=== PATIENT | female | born 1955 | race Caucasian/White ===

== ENCOUNTER 2020-02-19 14:19 | Emergency (ER) | payer BC, SELFPAY ==
[2020-02-19 14:36] VITALS: BP 160/95; PULSE 88; RESP 20; TEMP 36.7; O2SAT 98; BMI 24.3
[2020-02-19 15:00] LABS: Basophils # 0.1 10^3/uL (0.0-0.1); Basophils % 0.6 %; Eosinophils % 0.3 %; Hematocrit 41.1 % (37.0-47.0); Hemoglobin 12.5 g/dL (11.5-15.3); Lymphocytes # 2.4 10^3/uL (0.8-4.8); Lymphocytes % 24.3 %; Mean Corpuscular HGB Conc 30.4 g/dL (30.0-36.0); Mean Corpuscular Hemoglobin 22.4 pg (28.0-34.0); Mean Corpuscular Volume 73.5 fL (81-99); Mean Platelet Volume 9.4 fL (7.4-10.4); Monocytes # 0.6 10^3/uL (0.2-0.9); Monocytes % 6.3 %; Neutrophils # 6.69 10^3/uL (1.8-7.7); Neutrophils % 68.2 %; Nucleated Red Blood Cells % 0 %; Platelet Count 366 10^3/cmm (130-400); Red Blood Count 5.59 10^6/uL (4.1-5.3); Red Cell Distribution Width 18.9 % (12.1-15.1); White Blood Count 9.8 10^3/uL (4.0-10.0)
--- NOTE | 2020-02-19 15:06 | CTR_ITS ---
PROCEDURE INFORMATION: Exam: CT Abdomen And Pelvis With Contrast Exam date and time: 02/19/2020 3:12 PM Age: 64 years old Clinical indication: Abdominal pain; Generalized; Prior surgery; Surgery date: 6+ months; Surgery type: Multiple; Patient HX: C/O abd pain w n/v/d x 3 weeks TECHNIQUE: Imaging protocol: Computed tomography of the abdomen and pelvis with intravenous contrast. Radiation optimization: All CT scans at this facility use at least one of these dose optimization techniques: automated exposure control; mA and/or kV adjustment per patient size (includes targeted exams where dose is matched to clinical indication); or iterative reconstruction. Contrast material: OMNI 300; Contrast volume: 95 ml; Contrast route: INTRAVENOUS (IV); COMPARISON: CT abdomen pelvis w con* [id number] 04/07/2013 1:31 AM RADIATION DOSE METRICS: Total DLP (mGy-cm): 375.69 FINDINGS: Lungs: Limited assessment lung bases without visible evidence of active cardiopulmonary process. Liver: Unremarkable. No mass. Gallbladder and bile ducts: Status post cholecystectomy. Pancreas: Normal. No ductal dilation. Spleen: Normal. No splenomegaly. Adrenals: Normal. No mass. Kidneys and ureters: Normal. No hydronephrosis. Stomach and bowel: Nonobstructive bowel pattern. No evidence for diverticulosis coli or diverticulitis. No evidence of significant adynamic or reactive ileus. 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 Appendix: Status post appendectomy. Intraperitoneal space: No visible intraperitoneal ascites. Vasculature: The abdominal aorta is nonaneurysmal. Moderate arterial sclerotic disease. Lymph nodes: No visible active mesenteric or retroperitoneal lymphadenopathy. Bladder: Unremarkable as visualized. Reproductive: Status post hysterectomy. Bones/joints: Advanced degenerative disc disease L5/S1. Spondylosis deformans. Soft tissues: Unremarkable. CT/CT abdomen pelvis w con* [id number] IMPRESSION: Currently no visible evidence of acute abdominal or pelvic pathologic process. Radiation Dose CTDIVOL = (mGy): DLP = 375.69 (mGy-cm)
[2020-02-19 15:16] LABS: HCG, Serum Qual Negative (Negative)
--- NOTE | 2020-02-19 15:19 | ED_ITS ---
HPI - Nausea/Vomiting/Diarrhea General: Chief complaint: Nausea/Vomiting/Diarrhea Stated complaint: n/v/d abd pain Time Seen by Provider: 02/19/20 14:52 Source: patient Mode of arrival: ambulatory Limitations: no limitations History of Present Illness: HPI Narrative: Christy is a very nice 64-year-old female who comes in complaining of nausea, vomiting and diarrhea. She states her symptoms have been present for the past 3 weeks. She denies any blood in her stools or black tarry stools. Patient states that she had a fever when it first started approximately 2 weeks ago but has not had a problem with that since. States the stools are loose. She has decreased appetite and she states when she eats or drinks anything it usually comes up. She is unable to keep down her medications. 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 She states she has not had evaluation for this except for at the very beginning and was tested for covert and found to be negative. She denies any other complaints or concerns at this time. Associated nausea: Yes Associated symtoms: Reports nausea; Denies change in vision, chest pain, diaphoresis, dizziness, dysuria, fatigue, headache(s), malaise, palpitations or syncope Review of Systems Const: Reports: fever(s); Denies: chills, body aches, fatigue, malaise or diaphoresis Eyes: Denies: change in vision, blurry vision, photophobia, eye discomfort, eye discharge, eye redness or yellow eyes ENMT: Denies: throat pain, odynophagia, hoarseness, swelling of lips/tongue, ear or mastoid pain, ear discharge, change in hearing or nasal discharge Card: Denies: chest pain, palpitations, irregular heart rhythm, edema, lightheadedness, syncope, pre-syncope, dyspnea on exertion or orthopnea Resp: Denies: dyspnea, productive cough, non-productive cough, wheezing, hemoptysis or chest congestion GI: Reports: abdominal pain, nausea and vomiting; Denies: hematemesis, coffee ground emesis, heartburn, constipation, GI cramping, hematochezia or melena : Denies: flank pain, dysuria, urinary frequency, urinary urgency or hematuria Musc: Denies: neck pain, back pain, extremity pain, extremity swelling, joint pain, joint swelling, joint redness, joint warmth or joint stiffness Skin/Breast: Denies: rash, pruritus, erythema, skin pain or skin tenderness Neuro: Denies: headache(s), numbness in extremities, weakness in extremities, sensory changes, lack of coordination, difficulty walking, dizziness, vertigo, confusion, Slurred speech present or seizure-like activity Carlos/Lymph: Denies: easy bruising, easy bleeding, petechiae, purpura or enlarged lymph nodes All/Imm: Denies: urticaria, throat swelling, tongue swelling, facial swelling or acute wheezing PFSH ED PFSH: Surgical History (Updated 02/19/20 @ 15:32 by Farrah Fierro) H/O laparoscopy H/O partial resection of colon H/O: hysterectomy S/P appendectomy S/P cholecystectomy S/P laparotomy Social History Smoking and tobacco status: never smoked Alcohol intake: never Physical Exam Const: COMMON NORMALS: no acute distress, patient oriented x3, no limitations and alert GENERAL APPEARANCE: cooperative HENMT: COMMON NORMALS: normocephalic, atraumatic, external ears normal, EAC's normal and Normal external nose present HEAD & SCALP: normal to inspection, normocephalic and atraumatic FACE & SINUS: normal facial exam and face symmetric NOSE: Normal external nose present and Normal nares present EXTERNAL EAR: Yes external ears normal EXTERNAL AUDITORY CANAL: EAC's normal MOUTH: Normal oral and palatal mucosa present, lip normal and tongue normal Eye: COMMON NORMALS: Equal, round and reactive pupils present and conjunctivae normal GENERAL EYE: appearance normal, both eyes and all related structures ALIGNMENT: Yes alignment normal PERIORBITAL: periorbital findings normal EYELID: eyelids normal CONJUNCTIVA: Yes conjunctivae normal SCLERA: sclerae normal PUPIL: Yes Equal, round and reactive pupils present Neck/C-Spine: COMMON NORMALS: full ROM, no lymphadenopathy, supple, no meningeal signs and no JVD GENERAL: Yes normal visual inspection and Yes trachea midline Chest: COMMONS NORMALS: normal inspection of the chest and normal palpation of entire chest wall Resp: COMMON NORMALS: normal respiratory effort, No retractions, No use of accessory muscles and clear to auscultation bilaterally EFFORT & INSPECTION: Yes able to speak in complete sentences and Yes symmetric chest movement AUSCULTATION: clear to auscultation bilaterally, no crackles, no rales, no rhonchi and no wheezes Cardio: COMMON NORMALS: no JVD, regular rate, regular rhythm, S1 normal heart sound present and S2 normal heart sound present RATE: regular rate RHYTHM: regular rhythm HEART SOUNDS: S1 normal heart sound present, S2 normal heart sound present, no click, no gallops, no murmurs and no rubs GI: COMMON NORMALS: Soft to palpation and No hepatosplenomegaly present PALPATION: Yes Soft to palpation, No Tenderness to palpation present (GI), No Guarding due to palpation present (GI), No Rigid due to palpation, Yes No hepatosplenomegaly present, No Hernia present, No Palpable mass present and No Pulsatile mass present : COMMON NORMALS: Yes no CVA tenderness BLADDER/KIDNEY EXAM: Yes no CVA tenderness EXTERNAL FEMALE EXAM: No Hernia present Back/Pelvis: COMMON NORMALS: no CVA tenderness, thoracic and lumbar spine normal to inspection, no thoracic nor lumbar tenderness and thoraco-lumbar ROM normal Extremity: COMMON NORMALS: normal to inspection, full ROM, capillary refill no rmal, no joint enlargement, no clubbing, cyanosis or edema and no calf tenderness Neuro: COMMON NORMALS: patient oriented x3, CN's II-XII intact bilaterally, moves all extremities, no focal motor deficits and no sensory deficits noted SENSORIUM/ORIENTATION: Yes alert MENINGEAL SIGNS: Yes no meningeal signs SPEECH: speech normal Psych: COMMON NORMALS: mental status grossly normal, Normal thought process present, cooperative, normal affect, speech normal and activity/motor behavior normal SPEECH: Yes normal speech THOUGHT PROCESS: Normal thought process present Skin: COMMON NORMALS: no rashes or lesions noted, turgor normal, no jaundice, no petechiae and no mottling GENERAL SKIN EXAM: no rashes or lesions noted and turgor normal Course Vital Signs: Vital signs: Vital Signs Temperature 98.0 F 02/19/20 14:36 Pulse Rate 78 02/19/20 17:45 Respiratory Rate 18 02/19/20 17:45 Blood Pressure 138/74 02/19/20 17:45 Pulse Oximetry 98 02/19/20 17:45 MDM - Nausea/Vomiting/Diarrhea MDM Narrative: Medical decision making narrative: Ms. Jane is a nice 64-year-old female comes with a 3-week history of nausea vomiting and diarrhea. Patient states that she has decreased appetite and is having a hard time keeping her medications down. Her lab work is unremarkable and her CT scan is clear. Her abdominal exam shows no sign of peritonitis. I am going to send the patient home on Bentyl and Zofran. She wants to try these at home to see how they help. She declines any further evaluation and care at this time and is ready for disc harge. Lab Data: Attestation: I reviewed the patient's lab results. Labs: Lab Results 02/19/20 02/19/20 02/19/20 Range/Units 14:53 14:53 14:53 WBC 9.8 (4.0-10.0) 10^3/ uL RBC 5.59 H (4.1-5.3) 10^6/u L Hgb 12.5 (11.5-15.3) g/dL Hct 41.1 (37.0-47.0) % MCV 73.5 L (81-99) fL MCH 22.4 L (28.0-34.0) pg MCHC 30.4 (30.0-36.0) g/dL RDW 18.9 H (12.1-15.1) % Plt Count 366 (130-400) 10^3/c mm MPV 9.4 (7.4-10.4) fL Neut % (Auto) 68.2 % Lymph % (Auto) 24.3 % [place] % (Auto) 6.3 % Eos % (Auto) 0.3 % Baso % (Auto) 0.6 % Neut # (Auto) 6.69 (1.8-7.7) 10^3/u L Lymph # (Auto) 2.4 (0.8-4.8) 10^3/u L [place] # (Auto) 0.6 (0.2-0.9) 10^3/u L Eos # (Auto) 0.0 (0.0-0.8) 10^3/u L Baso # (Auto) 0.1 (0.0-0.1) 10^3/u L Nucleated RBC % (a uto) 0 % Nucleated RBCs # 0.0 /100WBC Sodium 139 (136-145) mmol/L Potassium 3.8 (3.5-5.1) mmol/L Chloride 105 (98-107) mmol/L Carbon Dioxide 20 L (22-29) mmol/L Anion Gap 17.8 (5-19) BUN 13 (8-23) mg/dL Creatinine 0.7 (0.5-0.9) mg/dL GFR Calculation 84.8 L (90-130) mL/min Glucose 112 (65-115) mg/dL Calculated Osmolal ity 289 (285-295) mOsm/k g Lactic Acid (0.5-2.2) mmol/L Calcium 10.5 (8.5-10.5) mg/dL Total Bilirubin 0.4 (0.15-1.2) mg/dL AST 13 (0-32) U/L ALT 18 (0-33) U/L Alkaline Phosphata se 111 H (35-105) IU/L Total Protein 7.7 (6.6-8.7) g/dL Albumin 4.7 (3.5-5.2) g/dL Globulin 3.0 (1.3-4.6) g/dL Lipase 13 (13-60) U/L HCG, Qual Negative (Negative) Urine Color (Yellow) Urine Appearance (CLEAR) Urine pH (5-7) Ur Specific Gravit y (1.005-1.030) Urine Protein (Negative) Urine Glucose (UA) (Normal) Urine Ketones (Negative) Urine Blood (Negative) Urine Nitrate (Negative) Urine Bilirubin (Negative) Urine Urobilinogen (Negative) mg/dL Ur Leukocyte Agnelica ase (Negative) 02/19/20 02/19/20 Range/Units 15:53 16:15 WBC (4.0-10.0) 10^3/ uL RBC (4.1-5.3) 10^6/u L Hgb (11.5-15.3) g/dL Hct (37.0-47.0) % MCV (81-99) fL MCH (28.0-34.0) pg MCHC (30.0-36.0) g/dL RDW (12.1-15.1) % Plt Count (130-400) 10^3/c mm MPV (7.4-10.4) fL Neut % (Auto) % Lymph % (Auto) % [place] % (Auto) % Eos % (Auto) % Baso % (Auto) % Neut # (Auto) (1.8-7.7) 10^3/u L Lymph # (Auto) (0.8-4.8) 10^3/u L [place] # (Auto) (0.2-0.9) 10^3/u L Eos # (Auto) (0.0-0.8) 10^3/u L Baso # (Auto) (0.0-0.1) 10^3/u L Nucleated RBC % (a uto) % Nucleated RBCs # /100WBC Sodium (136-145) mmol/L Potassium (3.5-5.1) mmol/L Chloride (98-107) mmol/L Carbon Dioxide (22-29) mmol/L Anion Gap (5-19) BUN (8-23) mg/dL Creatinine (0.5-0.9) mg/dL GFR Calculation (90-130) mL/min Glucose (65-115) mg/dL Calculated Osmolal ity (285-295) mOsm/k g Lactic Acid 1.4 (0.5-2.2) mmol/L Calcium (8.5-10.5) mg/dL Total Bilirubin (0.15-1.2) mg/dL AST (0-32) U/L ALT (0-33) U/L Alkaline Phosphata se (35-105) IU/L Total Protein (6.6-8.7) g/dL Albumin (3.5-5.2) g/dL Globulin (1.3-4.6) g/dL Lipase (13-60) U/L HCG, Qual (Negative) Urine Color Colorless (Yellow) Urine Appearance Clear (CLEAR) Urine pH 7 (5-7) Ur Specific Gravit y 1.005 (1.005-1.030) Urine Protein Neg (Negative) Urine Glucose (UA) Norm (Normal) Urine Ketones Negative (Negative) Urine Blood Neg (Negative) Urine Nitrate Negative (Negative) Urine Bilirubin Neg (Negative) Urine Urobilinogen Norm (Negative) mg/dL Ur Leukocyte Angelica ase Negative (Negative) Imaging Data^: CT Abd/Pel: Radiologist's impression: [address] [address] [address] Scan Report Signed Patient: Christy Jane Unit #: [id number] : 1955 Age/Sex: 64 / F ADM Date: 02/19/20 Loc: ER Room/Bed: Attending Dr: Ordering Provider/Ordering MD: Farrah Fierro DO Date of Service: 02/19/20 Procedure(s): CT abdomen pelvis w con* [id number] Accession Number(s): [id number] Report Number: [id number] PROCEDURE INFORMATION: Exam: CT Abdomen And Pelvis With Contrast Exam date and time: 02/19/2020 3:12 PM Age: 64 years old Clinical indication: Abdominal pain; Generalized; Prior surgery; Surgery date: 6+ months; Surgery type: Multiple; Patient HX: C/O abd pain w n/v/d x 3 weeks TECHNIQUE: Imaging protocol: Computed tomography of the abdomen and pelvis with intravenous contrast. Radiation optimization: All CT scans at this facility use at least one of these dose optimization techniques: automated exposure control; mA and/or kV adjustment per patient size (includes targeted exams where dose is matched to clinical indication); or iterative reconstruction. Contrast material: OMNI 300; Contrast volume: 95 ml; Contrast route: INTRAVENOUS (IV); COMPARISON: CT abdomen pelvis w con* [id number] 04/07/2013 1:31 AM RADIATION DOSE METRICS: Total DLP (mGy-cm): 375.69 FINDINGS: Lungs: Limited assessment lung bases without visible evidence of active cardiopulmonary process. Liver: Unremarkable. No mass. Gallbladder and bile ducts: Status post cholecystectomy. Pancreas: Normal. No ductal dilation. Spleen: Normal. No splenomegaly. Adrenals: Normal. No mass. Kidneys and ureters: Normal. No hydronephrosis. Stomach and bowel: Nonobstructive bowel pattern. No evidence for diverticulosis coli or diverticulitis. No evidence of significant adynamic or reactive ileus. 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 Appendix: Status post appendectomy. Intraperitoneal space: No visible intraperitoneal ascites. Vasculature: The abdominal aorta is nonaneurysmal. Moderate arterial sclerotic disease. Lymph nodes: No visible active mesenteric or retroperitoneal lymphadenopathy. Bladder: Unremarkable as visualized. Reproductive: Status post hysterectomy. Bones/joints: Advanced degenerative disc disease L5/S1. Spondylosis deformans. Soft tissues: Unremarkable. CT/CT abdomen pelvis w con* [id number] IMPRESSION: Currently no visible evidence of acute abdominal or pelvic pathologic process. Radiation Dose CTDIVOL = (mGy): DLP = 375.69 (mGy-cm) Dictated By: Henrique Molina Signed By: Henrique Molina Signed Date/Time: 02/19/201706 DD/ 05 Discharge Plan Discharge Patient Disposition: Home Clinical Impression: Abdominal pain of unknown cause Condition: Stable Prescriptions: New Zofran 4 mg tablet 4 mg PO Q6H PRN (Reason: nausea and vomiting) Qty: 20 RF: 0 dicyclomine 20 mg tablet 20 mg PO QID 10 Days Qty: 40 RF: 0 No Action Multiple Vitamins Tablet 1 tab PO DAILY RF: 0 trazodone 50 mg tablet 50 mg PO BEDTIME RF: 0 sumatriptan succinate 100 mg tablet 100 mg PO PRN RF: 0 hydrocodone-acetaminophen 10-325 mg tablet 1 tab PO QID PRN (Reason: Pain) RF: 0 ibuprofen 200 mg Tablet 600 mg PO PRN RF: 0 fluticasone propionate 50 mcg/actuation spray,suspension 1 - 2 spray INTRANASAL DAILY PRN (Reason: unknown) RF: 0 Detox Cleanse See Rx Instructions .ROUTE .COMPLEX RF: 0 royal jelly 1 cap PO DAILY RF: 0 Discharge Orders: Discharge Order (Routine); Ordered 02/19/20 Ordered By: Farrah Fierro Referrals: Huy Cobos MD [Primary Care Provider] - Discharge Diet: Advance as tolerated and Clear Liquid Discharge Activity: Increase activity as tolerated Patient Instructions: Abdominal Pain (ED) Activity Restrictions/Additional Instructions: Please return to the ER immediately for any of the signs or symptoms listed on your discharge instruction sheets, worsening/changing of your symptoms, you are not getting better as quickly as expected, or for ANY other cause or concerns. Follow a clear liquid diet and slowly advance it as your pain can tolerate. Return to the ER for fever, uncontrolled pain, uncontrolled vomiting, or for any other cause for concern. He is certain to follow-up with your doctor as soon as possible for recheck. Discharge Date/Time: 02/19/20 17:47 Coding Level of Care Code ED Back Shoe Worker for Chg Fwd Exam Comprehensive
[2020-02-19 15:22] LABS: Alanine Aminotransferase 18 U/L (0-33); Albumin Level 4.7 g/dL (3.5-5.2); Alkaline Phosphatase 111 IU/L (35-105); Anion Gap 17.8 (5-19); Aspartate Amino Transferase 13 U/L (0-32); Blood Urea Nitrogen 13 mg/dL (8-23); Calcium 10.5 mg/dL (8.5-10.5); Carbon Dioxide 20 mmol/L (22-29); Chloride 105 mmol/L (98-107); Glomerular Filtration Rate 84.8 mL/min (90-130); Glucose 112 mg/dL (65-115); Lipase 13 U/L (13-60); Osmolality Calculated 289 mOsm/kg (285-295); Potassium 3.8 mmol/L (3.5-5.1); Sodium 139 mmol/L (136-145); Total Bilirubin 0.4 mg/dL (0.15-1.2); Total Protein 7.7 g/dL (6.6-8.7)
[2020-02-19 16:02] VITALS: RESP 18; O2SAT 98
[2020-02-19] MEDS: HYDROmorphone 1 mg/mL INJ 1 mL 0.5 MG IVP (16:02)
[2020-02-19] MEDS: ondansetron 2 mg/ML SDV 2 mL 4 MG IVP ×2 (16:03→17:44)
[2020-02-19] MEDS: sodium chloride 0.9% 1,000 ML 999 ML IV (16:03)
[2020-02-19] MEDS: iohexol 300 mg/mL 100 mL Btl IV (16:04)
[2020-02-19 16:23] LABS: Add Urine Microscopic? NO
[2020-02-19 16:28] LABS: Lactic Sepsis W/Reflex 1.4 mmol/L (0.5-2.2)
[2020-02-19 16:32] LABS: Bilirubin Urine Neg (Negative); Blood Urine Neg (Negative); Glucose Urine UA Norm (Normal); Ketones Urine Negative (Negative); Leukocyte Esterase Urine Negative (Negative); Nitrate Urine Negative (Negative); Protein Urine Neg (Negative); Specific Gravity, Urine 1.005 (1.005-1.030); Urine Appearance Clear (CLEAR); Urine Color Colorless (Yellow); Urobilinogen Urine Norm (Negative); pH Urine 7 (5-7)
[2020-02-19 17:43] VITALS: RESP 18; O2SAT 98
[2020-02-19] MEDS: morphine 4 mg/mL SDV 1 mL IVP (17:43)
[2020-02-19 17:45] VITALS: BP 138/74; PULSE 78; RESP 18; O2SAT 98
== END 2020-02-19 17:47 | disposition home or self-care (01) ==
PROVIDERS: Emergency Provider Emergency Medicine; PCP Family Medicine
DX: R10.9 Unspecified abdominal pain (principal)
CPT/HCPCS: 12345; 36415; 74177; 80053; 81003; 83605; 83690; 84703; 85025; 96374; 96375; 99282; 99284; J1170; J2270; J2405; J7030; Q9967

== ENCOUNTER 2020-04-17 15:30 | Outpatient (CLI) | payer BC, SELFPAY ==
--- NOTE | 2020-04-17 15:33 | MR_ITS ---
WS: [id number] MRI LUMBAR SPINE NONCONTRAST HISTORY: LUMBOSACRAL RADICULOPATHY AT L5 COMPARISON: 08/15/2008 TECHNIQUE: Sagittal and axial multisequence imaging is submitted. Reversal of the normal cervical lordosis. Moderate degenerative disc disease in the cervical spine. Mild straightening of the normal lumbar lordosis. No marrow edema or fracture. Mild disc desiccation and narrowing throughout the lumbar spine, most significant at L5-S1 with a dis c space is moderate. Conus terminates normally at L1-2 disc level. L1-L2: Mild osteophytic ridging with no stenosis. L2-L3: Mild osteophytic ridging and ligamentum flavum hypertrophy. No significant stenosis. L3-L4: Mild osteophytic ridging with moderate facet and ligamentum flavum arthritis. Moderate RIGHT f oraminal narrowing. L4-L5: Diffuse annular disc bulging and osteophytic ridging. Moderate ligamentum flavum hypertrophy a nd facet joint arthritis. Disc osteophyte and facet encroachment into the RIGHT subarticular recess c ausing moderate stenosis and mild on the LEFT. Associated annular fissures in the RIGHT subarticular disc. L5-S1: Diffuse annular disc bulging and mild osteophytic ridging. Facet joint arthritis. Osteophytes and disc disease contribute to moderate bilateral foraminal stenosis. Shallow central disc protrusion has decreased in size since 2008. MR/MR lumbar spine wo con* [id number] IMPRESSION: 1. Moderate bilateral foraminal stenosis at L5-S1. No significant progression since 2008. 2. Moderate RIGHT subarticular recess stenosis and mild on the LEFT at L4-5 wi thout significant change. 3. Moderate RIGHT foraminal narrowing at at L3-4 with mild progression since t he prior study.
--- NOTE | 2020-04-17 15:33 | MR_ITS ---
WS: [id number] MRI CERVICAL SPINE HISTORY: CERVICAL RADICULOPATHY COMPARISON: None available. Straightening and reversal of the normal cervical lordosis. Reversal is centered at C4-5. Signal within the cord is normal. Craniocervical junction, C1 and C2 relationship, odontoid process and soft tissues are normal. C2-C3: Tiny central disc protrusion without stenosis. C3-C4: Moderate central disc protrusion with effacement of the CSF. Disc osteophyte complex in the RI GHT foramen causing moderate to severe RIGHT foraminal stenosis. Only mild narrowing on the LEFT. C4-C5: Diffuse annular disc bulging and osteophytic ridging. Disc osteophyte complex in the RIGHT for amen causing moderate stenosis. C5-C6: Diffuse osteophytic ridging and annular disc bulging. Complete effacement of CSF with moderate central stenosis and moderate to severe bilateral foraminal stenosis. There is contact on cervical c ord and mild deformity. C6-C7: Central disc protrusion with annular fissure and osteophytes causing contact on the LEFT later al cervical cord. C7-T1: Shallow central disc protrusion. No stenosis. Paraspinal soft tissue are normal. MR/MR cervical spin wo con* [id number] IMPRESSION: 1. Multilevel moderate spondylitic changes and reversal normal cervical lordos is. 2. Moderate to severe RIGHT foraminal stenosis at C3-4 due to disc osteophyte disease. There is also moderate central disc protrusion at C3-4. 3. Moderate central stenosis with moderate to severe bilateral foraminal steno sis at C5-6 with cord contact. 4. Moderate RIGHT foraminal stenosis due to disc osteophyte at C4-5. 5. Disc osteophyte complex at C6-7 on the LEFT with mild cord contact.
== END 2020-04-17 15:31 | disposition home or self-care (01) ==
LOC: RADSHAW 15:32
PROVIDERS: PCP Family Medicine; Visit Provider Family Medicine
DX: M54.17 Radiculopathy, lumbosacral region (principal); M54.12 Radiculopathy, cervical region; M48.07 Spinal stenosis, lumbosacral region; M48.061 Spinal stenosis, lumbar region without neurogenic claudication; M48.02 Spinal stenosis, cervical region; M50.21 Other cervical disc displacement, high cervical region; M25.78 Osteophyte, vertebrae
CPT/HCPCS: 72141; 72148

== ENCOUNTER → 2020-12-15 09:15 | Outpatient (BNVA) | payer BC, SELFPAY | PROVIDERS: PCP Family Medicine; Referring Provider Family Medicine; Visit Provider Orthopaedic Surgery | DX: M47.892 Other spondylosis, cervical region (principal); R10.9 Unspecified abdominal pain | CPT/HCPCS: 72050 ==

== ENCOUNTER → 2021-02-15 10:16 | Outpatient (BNVA) | payer BC, SELFPAY | PROVIDERS: PCP Family Medicine; Visit Provider Orthopaedic Surgery | DX: Z01.812 Encounter for preprocedural laboratory examination (principal); Z20.822 Contact with and (suspected) exposure to COVID-19 | CPT/HCPCS: 87635 ==

== ENCOUNTER 2021-02-19 05:50 | Day surgery (SDC) | payer BC, SELFPAY ==
[2021-02-14 10:43] VITALS: BMI 26.5
--- NOTE | 2021-02-14 16:03 | ANES.PREANE2 ---
Pre-Anesthetic Assessment Pre-Anesthetic Assessment: Height/Weight: Height 1.6 m Weight 68.039 kg Proposed Procedure: Operation Date: 02/21/21 09:55 Proposed Procedures p ACDF 08/03 67877, 58657 09/04 67970 70066 /6 68992, 94177, 83609, 56862 m47.22(Not Applicable) - Kevin Joseph, DO Was Beta Devonte taken within 24 hours: Yes Was Clonidine taken within 24 hours: N/A Social: Social History: Tobacco and No alcohol Exam: Pre-Anes Outpt Exam: alert, oriented x 3 and regular rate & rhythm Airway: Submandibular: WNL Cervical ROM: Other (Some limitation with pain) MP: 2 Dentition: Full Pulmonary: Pulmonary: COPD CV/HEM: CV/HEM: HTN GI: GI: GERD Musc/skel: Musc/skel: OA/DJD Comments: Chronic pain/opioid Anesthetic Plan: ASA status: 3 Anesthesia: General Risk of > 500 ml blood loss (7ml/kg in children): No PFSH Anesthesia PFSH: Surgical History H/O laparoscopy H/O partial resection of colon H/O: hysterectomy S/P appendectomy S/P cholecystectomy S/P laparotomy Social History Smoking and tobacco status: current every day smoker Alcohol intake: never Data Anesthesia Cardiac Studies: No Data to Display
[2021-02-19] VITALS (21 sets, daily range): BP systolic 147–218; BP diastolic 86–118; PULSE 73–98; RESP 13–23; TEMP 36.6–36.7; O2SAT 93–100
--- NOTE | 2021-02-19 | SCC_ITS ---
Procedure Done: 1. Anterior diskectomy C3/4 2. Anterior disckectomy C4/5 3. Anterior diskectomy C5/6 4. Insertion of cage C3/4 5. Insertion of cage C4/5 6. Insertion of cage C5/6 7. Instrumentation with anterior plate from C3-C6 8. Use of allograft 33.0 seconds of fluoroscopic guidance, for a cumulative dose of 2.54 mGy, was provided to Dr. Joseph by the radiology department. C-arm images of the cervical spine were saved for the patient's permanent record. LUCAS
--- NOTE | 2021-02-19 | XR_ITS ---
WS: [id number] INTRAOPERATIVE TECHNIQUE: 3 Spot fluoroscopic images for intraoperative purposes. FLUOROSCOPY TIME: 33.0 seconds CLINICAL INFORMATION: ACDF COMPARISON: None. FINDINGS: Intraoperative changes ACDF C2-C5 with interbody fusion grafts. Endotracheal tube. XR/XR cervical spine 3V* [id number] IMPRESSION: Images obtained for intraoperative purposes.
--- NOTE | 2021-02-19 06:23 | P.HP_ITS ---
Providers/Chief Complaint Primary Care Provider: Huy Cobos MD Chief Complaint: ACDF 08/03 [id number], [id number] 09/04 [id number] 10/05 [id number], 2 History of Present Illness Christy Jane is a 65 year old female neck pain. Onset: gradual Duration: year Characteristics: stiffness Severity: moderate Location: neck Radiating symptoms: none Aggravating factors: movement Alleviating factors: nothing Neuro deficits: Patient reports numbness, tingling, weakness, Patient denies incontinence of bowel/bladder, saddle anesthesia. Prior tx: None Review of Systems Narrative: General ROS: negative for weight changes, fever ENT ROS: negative for nasal congestion, drainage or bleeding, sore throat, dysphagia or ear pain Eyes: PERRL Hematological and Lymphatic ROS: negative for swollen glands or abnormal bleeding Endocrine ROS: negative for polyuria/polydpsia or new changes in weight Respiratory ROS: negative for cough, shortness of breath, or wheezing Cardiovascular ROS: negative for chest pain or dyspnea on exertion Gastrointestinal ROS: negative for reflux, abdominal pain, change in bowel habits, or black or bloody stools Musculoskeletal ROS: negative for back pain, neck pain, or joint pain or swelling except for current problem Neurological ROS: negative for TIA or stoke symptoms Skin: no rashes Medications/Allergies Home Medications Medication Instructions Recorded Confirmed Last Taken Type fluticasone propionate 1 - 2 spray INTRANASAL DAILY PRN 02/19/20 02/19/21 02/18/21 History hydrocodone-acetaminophen 1 tab PO QID PRN 02/19/20 02/19/21 02/19/21 05:00 History ibuprofen 600 mg PO PRN 02/19/20 02/19/21 02/16/21 History multivitamin [Multiple Vitamins] 1 tab PO DAILY 02/19/20 02/19/21 02/18/21 History sumatriptan succinate 100 mg PO PRN 02/19/20 02/19/21 02/19/21 History trazodone 50 mg PO BEDTIME 02/19/20 02/19/21 02/18/21 History dicyclomine 20 mg PO DAILY 02/14/21 02/19/21 02/18/21 History metoprolol succinate 25 mg PO DAILY 02/14/21 02/19/21 02/18/21 History pantoprazole 40 mg PO DAILY 02/14/21 02/19/21 02/18/21 History Allergies Allergy/AdvReac Type Severity Reaction Status Date / Time codeine Allergy RASH Verified 12/15/20 09:20 Penicillins Allergy RASH Verified 12/15/20 09:20 PFSH Acute PFSH: Surgical History H/O laparoscopy H/O partial resection of colon H/O: hysterectomy S/P appendectomy S/P cholecystectomy S/P laparotomy Social History Smoking and tobacco status: current every day smoker Alcohol intake: never Physical Exam Narrative: EXAM NARRATIVE: CONSTITUTIONAL: The patient is a normal appearing [] in no apparent distress. GENERAL: Patient in no acute distress. CARDIAC: Regular rate and rhythm. CHEST: Normal inspiratory effort, normal respiratory rate. ABDOMEN: Soft and nontender. SKIN: Clear, warm and intact. NEURO?PSYCH: The patient is alert and oriented to person, place and time. Sensorv /SILT Motor StrengthShoulder abduction C5 5/5Wrist extension C6 5/5Elbow extension C7 5/5Hand Railroad Crossing Protection Maintainer C8 5/5Finger abduction T15/5 Radial/ Ulnar/ Median n intact LowerSensory (SILT)Motor StrengthHin flexion L2/3Ant/inner thigh 5/5Hip adduction L2/3 5/5Knee extension L4 Lat thigh, 5/5Toe dorsiflexion L5 5/5Ankle dorsiflexion L5/ X68Vhltizn flexion S1 5/5 DTRBleeps 2+Triceps 2+Brachioradialis 2+Patellar 2+Achilles 2+ MUSCULOSKELETAL: [] UPPEREXTREMITIES: The patient had full active ROM in fingers, wrist, elbow, and shoulder. The patient demonstrated ability to fully flex/extend/abduct/adduct fingers, make ok sign, cross 2nd/3rd digits, extend 1st digit fully.. Radial pulse 2+, CR<2 seconds. LOWER EXTREMITIES: Pt has full, active ROM of toes, ankle, knee, and hip. Dorsalis pedis/posterior tibialis pulses 2+, CR<2 seconds. SPINE: Skin warm, dry, intact. A&P Assessment and plan (1) Cervical spondylosis with radiculopathy: she has significant stenosis with compression of the spinal cord and severe radiculopathy going into left arm is been going for several years. She has not done physical therapy however I am concerned about the severity of the compression of the spinal cord that this would cause irritation of the spinal cord. At this point recommend she did not do any activities that she can potentially hyperextend her neck. This point my plan is to perform a C3-4 C4-5 C5-6 ACDF to stabilize the levels compressing the spinal cord and opened up the spaces where there is radiculopathy. Discussed with her doing injections however at this point again my concern is the degree of severity of her compression of the spinal cord and the injections will not improve the space available for the spinal cord. Risk and benefit of surgery were explained which include bleeding infection scar pain damage to blood vessels nerves risk of further surgery anesthesia risk as well as swallowing issues. Status: Acute Attestations Medical Necessity Statement*: failed conservative tx Coding Level of Care Code Acute Database Software Technician for Rachana Baird Diagnoses Cervical spondylosis with radiculopathy M47.22
[2021-02-19] MEDS: sodium chloride 0.9% 1,000 ML 30 ML IV ×2 (06:33→11:12)
[2021-02-19] MEDS: clindamycin 900 MG/50 ML PREMIX 100 MG IV (07:15)
--- NOTE | 2021-02-19 08:17 | P.ANESUD_ITS ---
Pre-Anesthetic Update Pre-Anesthetic Assessment: Date of Surgery/Procedure: 02/19/21 Preop Monica gnosis: cervical stenosis Proposed Procedure: Operation Date: 02/19/21 07:00 Proposed Procedures p ACDF 3/4 38251, 04774 4/5 18556 62520 5/6 42410, 79195, 54743, 39084 m47.22(Not Applicable) - Kevin Joseph, DO Any changes to Pre-Anesthetic Assessment?: No Last Intake: Intake Last Liquid Date 02/18/21 Last Liquid Time 21:30 Last Solid Date 02/18/21 Last Solid Time 21:30 Vitals: Temperature 97.9 F 02/19/21 05:59 Temperature Source Temporal Artery S can 02/19/21 05:59 Pulse Rate 82 02/19/21 05:59 Pulse Rhythm 02/19/21 05:59 Respiratory Rate 18 02/19/21 05:59 Blood Pressure 163/108 02/19/21 05:59 Blood Pressure Ashley n 126 02/19/21 05:59 Pulse Oximetry 97 02/19/21 05:59 Oxygen Delivery Me thod 02/19/21 05:59 Exam: Pre-Anes Outpt Exam: alert, oriented x 3, clear to auscultation bilaterally and regular rate & rhythm Cardiac Studies: No Data to Display
--- NOTE | 2021-02-19 10:00 | PM.OP ---
Operative Report Date of procedure: February 19, 2021 Pre-op Diagnosis: cervical stenosis Post-op diagnosis: same Procedure Done: 1. Anterior diskectomy C3/4 2. Anterior disckectomy C4/5 3. Anterior diskectomy C5/6 4. Insertion of cage C3/4 5. Insertion of cage C4/5 6. Insertion of cage C5/6 7. Instrumentation with anterior plate from C3-C6 8. Use of allograft Surgeon: Kevin Joseph Carpentry Instructor: Ambrose Hector Anesthesia: General Estimated blood loss (mL): 10 Condition: stable Disposition: PACU Procedure: 1. Anterior diskectomy C3/4 2. Anterior disckectomy C4/5 3. Anterior diskectomy C5/6 4. Insertion of cage C3/4 5. Insertion of cage C4/5 6. Insertion of cage C5/6 7. Instrumentation with anterior plate from C3-C6 8. Use of allograft The patient was taken to the operating room, where he underwent general endotracheal anesthesia without complications. He was then positioned supine on the operating table, and all areas of impingement were well padded. The arms were carefully padded and tucked at his sides. A roll was placed between the shoulder blades.. An x-ray was done to determine the appropriate level for the skin incision. The entire neck was then sterilely prepped and draped in the usual fashion. Neuromonitoring was attached prior to prepping. A transverse skin incision was made and carried down to the platysma muscle. This was then split in line with its fibers. Blunt dissection was carried down medial to the carotid sheath and lateral to the trachea and esophagus until the anterior cervical spine was visualized. A needle was placed into a disc and an x-ray was done to determine its location. The longus colli muscles were then elevated bilaterally with the electrocautery unit. Self-retaining retractors were placed deep to the longus colli muscle. Attention was brought to the C3/4 level that was confirmed on x-ray. A caspar pin was placed into the C3 vertebrae and the C4 vertebrae. The disk space was then distracted. The microscope was then brought in. A radical anterior discectomies were performed at C3/4. This included complete removal of the anterior annulus, nucleus, and posterior annulus. The posterior longitudinal ligament was removed as were the posterior osteophytes. Foraminotomies were then accomplished bilaterally. This was done using a high speed ajith, kerrison rongeurs and curretes Once all of this was accomplished, the curved currette was used to check for any residual compression. The central canal was wide open as were the foramen. A high-speed bur was used to remove the cartilaginous endplates above and below the interspace. Bleeding cancellous bone was exposed. The disc space were measured and appropriate size cage were placed sterilely onto the field. Allograft graft was packed into the cages. The cage was then placed and there was good juxtaposition against the bleeding decorticated surfaces and good distraction of each interspace. Attention was brought to the next interspace. The Harrell pins were removed. Bone wax was used to prevent any bleeding from occurring at the pin sites. Attention was brought to the C4/5 level that was confirmed on x-ray. A caspar pin was placed into the C4 vertebrae and the C5 vertebrae. The disk space was then distracted. The microscope was then brought in. A radical anterior discectomies were performed at C4/5. This included complete removal of the anterior annulus, nucleus, and posterior annulus. The posterior longitudinal ligament was removed as were the posterior osteophytes. Foraminotomies were then accomplished bilaterally. This was done using a high speed ajith, kerrison rongeurs and curretes Once all of this was accomplished, the curved currette was used to check for any residual compression. The central canal was wide open as were the foramen. A high-speed bur was used to remove the cartilaginous endplates above and below the interspace. Bleeding cancellous bone was exposed. The disc space were measured and appropriate size cage were placed sterilely onto the field. Allograft graft was packed into the cages. The cage was then placed and there was good juxtaposition against the bleeding decorticated surfaces and good distraction of each interspace. Attention was brought to the next interspace. The Harrell pins were removed. Bone wax was used to prevent any bleeding from occurring at the pin sites Attention was brought to the C5/6 level that was confirmed on x-ray. A caspar pin was placed into the C5 vertebrae and the C6 vertebrae. The disk space was then distracted. The microscope was then brought in. A radical anterior discectomies were performed at C5/6. This included complete removal of the anterior annulus, nucleus, and posterior annulus. The posterior longitudinal ligament was removed as were the posterior osteophytes. Foraminotomies were then accomplished bilaterally. This was done using a high speed ajith, kerrison rongeurs and curretes Once all of this was accomplished, the curved currette was used to check for any residual compression. The central canal was wide open as were the foramen. A high-speed bur was used to remove the cartilaginous endplates above and below the interspace. Bleeding cancellous bone was exposed. The disc space were measured and appropriate size cage were placed sterilely onto the field. Allograft graft was packed into the cages. The cage was then placed and there was good juxtaposition against the bleeding decorticated surfaces and good distraction of each interspace. Attention was brought to the next interspace. The Harrell pins were removed. Bone wax was used to prevent any bleeding from occurring at the pin sites The appropriate size anterior cervical locking plate was chosen and bent into gentle lordosis. Two screws were then placed into each of the vertebral bodies at C3, C4, C5, C6. There was excellent purchase. A final x-ray was done confirming good position of the hardware and Cages. The locking screws were then applied, also with excellent purchase. Following a final copious irrigation, there was good hemostasis and no dural leaks. The carotid pulse was strong. The wounds were then closed in layers using 2-0 Vicryl suture for the platysma muscle, 2-0 Vicryl suture for the subcutaneous tissue, and 4-0 monocryl suture in a subcuticular skin closure. Glue was placed followed by application of a sterile dressing. The drain was hooked to bulb suction. A soft collar was applied. The patient was then carefully returned to the supine position on his hospital bed where he was reversed and extubated and taken to the recovery room having tolerated the procedure well.
--- NOTE | 2021-02-19 10:18 | SUR.PHASEI ---
PT OPENS EYES TO VOICE, ORAL AIRWAY OUT PT NODS HEAD NO TO PAIN AND NAUSEA, GOOD RESP NOTED VSS IV PATENT, HOB AT 30 DEGREES ANTERIOR NECK DRESSING D/I WITH SOFT C COLLAR IN PLACE.
[2021-02-19] MEDS: HYDROmorphone 1 mg/mL INJ 1 mL 0.5 MG IVP ×3 (10:27→10:54)
--- NOTE | 2021-02-19 10:29 | SUR.PHASEI ---
1006 DR CHAN AT BEDSIDE FOR HANDOFF, ORDERS RECIEVED TO GIVE DILAUDID FIRST FOR PAIN IN PACU PER PHASE 1 ORDERS. 42730 PT AWAKE ALERT VERBALLY C/O OF PAIN OF 8 EARLIER BP ELEVATED SEE MED GIVEN.
[2021-02-19] MEDS: hyDRALAzine 20 mg/mL INJ 1 mL 10 MG IVP (10:36)
[2021-02-19] MEDS: midazolam 1 mg/mL INJ 2 mL IVP (10:59)
--- NOTE | 2021-02-19 11:10 | SUR.PHASEI ---
PT SLEEP WITH SNORING RESP BP BETTER NOW AT 176/88, VSS GOOD RESP EFFORT C COLLAR IN PLACE WITH DRESSING D/I NO HEMATOMA NOTED PT ABLE TO MOVE ALL EXT TO COMMAND .
[2021-02-19] MEDS: HYDROcodone-acetaminophen 5-325 mg Tablet 1 TAB PO (11:57)
[2021-02-19] MEDS: ondansetron 4 MG Tablet 8 MG PO (12:59)
--- NOTE | 2021-02-19 13:02 | SUR.PHASEII ---
rx called in to [facility] pharmacy for zofran 4mg. 1 t po q6h prn #20 0RF
--- NOTE | 2021-02-19 15:27 | ANE.PACU2 ---
Inpatient post-anesthesia follow up: Airway intact: Yes Vital signs: Temperature 97.9 F Pulse Rate 91 Respiratory Rate 16 Blood Pressure 164/86 Pulse Oximetry 93 Oxygen Delivery Me thod Room Air Oxygen Flow Rate 3 Fraction of Inspir ed Oxygen Hydration adequate: Yes Nausea and vomiting: No Pain level: 3 Mental status: Baseline
== END 2021-02-19 13:10 | disposition home or self-care (01) ==
PROVIDERS: PCP Family Medicine; Visit Provider Orthopaedic Surgery
PROC: 0RB30ZZ Excision of Cervical Vertebral Disc, Open Approach (ICD-10-PCS; CPT 22551; principal; 2021-02-19 07:00)
DX: M47.22 Other spondylosis with radiculopathy, cervical region (principal); J44.9 Chronic obstructive pulmonary disease, unspecified; I10 Essential (primary) hypertension; K21.9 Gastro-esophageal reflux disease without esophagitis; M19.90 Unspecified osteoarthritis, unspecified site; G89.29 Other chronic pain; Z79.891 Long term (current) use of opiate analgesic; F17.210 Nicotine dependence, cigarettes, uncomplicated
CPT/HCPCS: 20930; 22551; 22552 ×2; 22845; 22853 ×3; 36415; 72040; 76000; 97760; C1713; C9359; J0330; J0360; J1100; J1170; J2250; J2370; J2405; J2704; J2710; J3010; J3490; J7030; L0174; Q0162

== ENCOUNTER 2021-02-19 20:43 | Emergency (ER) | payer BC, SELFPAY ==
[2021-02-19 21:02] VITALS: BP 189/112; PULSE 104; RESP 18; TEMP 36.4; O2SAT 96
--- NOTE | 2021-02-19 21:28 | ED_ITS ---
HPI - Headache General: Chief Complaint: Headache Stated Complaint: headache, n/v post neck surgery Time Seen by Provider: 02/19/21 21:15 Source: patient Mode of arrival: ambulatory Limitations: no limitations History of Present Illness: HPI Narrative: 85-year-old female has a long history of migraines. States that things like anytime she has any neck stimulation like massages it causes her to have migraines. She had a neck surgery this morning done by Dr. Joseph. States that throughout the evening she has had increasing headache. States her headaches currently 10 out of 10. States this feels like her previous migraines that she has severe photophobia and phonophobia. Denies this being the worst headache of her life. Denies any fevers. She has had some nausea no vomiting. Associated symptoms: Deny chest pain, fever(s), nausea, rash or vomiting Review of Systems Const: Denies: fever(s), chills, body aches or change in appetite Eyes: Denies: blurry vision or eye discomfort ENMT: Denies: throat pain or dental pain Card: Denies: chest pain Resp: Denies: dyspnea GI: Denies: abdominal pain, nausea, vomiting or diarrhea : Denies: dysuria Musc: Denies: neck pain or back pain Skin/Breast: Denies: rash Neuro: Reports: headache(s) Psych: Denies: depression Carlos/Lymph: Denies: easy bruising All/Imm: Denies: urticaria PFSH ED PFSH: Surgical History H/O laparoscopy H/O partial resection of colon H/O: hysterectomy S/P appendectomy S/P cholecystectomy S/P laparotomy Social History Smoking and tobacco status: current every day smoker Alcohol intake: never Physical Exam Const: COMMON NORMALS: no acute distress, patient oriented x3 and healthy appearing HENMT: COMMON NORMALS: normocephalic and atraumatic HEAD & SCALP: normocephalic and atraumatic Eye: COMMON NORMALS: Equal, round and reactive pupils present and EOMs intact bilaterally PUPIL: Yes Equal, round and reactive pupils present Neck/C-Spine: COMMON NORMALS: full ROM and supple Chest: COMMONS NORMALS: normal inspection of the chest and normal palpation of entire chest wall Resp: COMMON NORMALS: normal respiratory effort, No retractions, No use of accessory muscles and clear to auscultation bilaterally AUSCULTATION: clear to auscultation bilaterally Cardio: COMMON NORMALS: regular rate, regular rhythm and No murmurs present (Cardio) RATE: regular rate RHYTHM: regular rhythm GI: COMMON NORMALS: Normal to inspection, nondistended, normoactive bowel sounds present, Soft to palpation, non-tender and no masses PALPATION: Yes Soft to palpation Extremity: COMMON NORMALS: normal to inspection and full ROM Neuro: COMMON NORMALS: patient oriented x3, moves all extremities and no focal motor deficits Psych: COMMON NORMALS: mental status grossly normal, Normal thought process present and cooperative THOUGHT PROCESS: Normal thought process present Skin: COMMON NORMALS: no rashes or lesions noted and no wounds GENERAL SKIN EXAM: no rashes or lesions noted Course Vital Signs: Vital signs: Vital Signs Temperature 97.6 F 02/19/21 21:02 Pulse Rate 104 H 02/19/21 21:02 Respiratory Rate 21 H 02/19/21 21:46 Blood Pressure 189/112 02/19/21 21:02 Pulse Oximetry 96 02/19/21 21:02 MDM - Headache MDM Narrative: Medical decision making narrative: Patient presents here with a migraine headache. Did offer CT of the head but she refused. States this is like her previous migraines and she feels much improved. To follow-up with PCP and return if worsening. She understands agrees to plan. Discharge Plan Discharge Patient Disposition: Home Clinical Impression: Migraine Condition: Stable Prescriptions: No Action dicyclomine 20 mg tablet 20 mg PO DAILY RF: 0 pantoprazole 40 mg tablet,delayed release (DR/EC) 40 mg PO DAILY RF: 0 metoprolol succinate 25 mg tablet extended release 24 hr 25 mg PO DAILY RF: 0 hydrocodone-acetaminophen 5-325 mg tablet 1 - 2 tab PO .Q4-6H Qty: 40 RF: 0 multivitamin [Multiple Vitamins] Tablet 1 tab PO DAILY RF: 0 trazodone 50 mg tablet 50 mg PO BEDTIME RF: 0 sumatriptan succinate 100 mg tablet 100 mg PO PRN RF: 0 hydrocodone-acetaminophen 10-325 mg tablet 1 tab PO QID PRN (Reason: Pain) RF: 0 ibuprofen 200 mg Tablet 600 mg PO PRN RF: 0 fluticasone propionate 50 mcg/actuation spray,suspension 1 - 2 spray INTRANASAL DAILY PRN (Reason: unknown) RF: 0 Discharge Orders: Discharge ED (Routine); Ordered 02/19/21 Ordered By: Sharif López Referrals: Huy Cobos MD [Primary Care Provider] - 1-3 days Discharge Diet: Advance as tolerated Discharge Activity: Resume usual activity Patient Instructions: Migraine Headache (ED) Coding Level of Care Code ED [employer] Internship for Chg Fwd Exam Comprehensive
[2021-02-19] MEDS: metoclopramide 5 mg/mL SDV 2 mL 10 MG IVP (21:44)
[2021-02-19 21:46] VITALS: RESP 21
[2021-02-19] MEDS: morphine 4 mg/mL SDV 1 mL IVP (21:46)
[2021-02-19] MEDS: diphenhydrAMINE 50 mg/mL SDV 1mL IVP (21:47)
[2021-02-19 22:35] VITALS: BP 148/125; PULSE 108; RESP 18; O2SAT 96
[2021-02-19 22:45] VITALS: RESP 18
[2021-02-19] MEDS: HYDROmorphone 1 mg/mL INJ 1 mL 0.5 MG IVP (22:45)
[2021-02-19 23:05] VITALS: BP 165/112; PULSE 102; RESP 18; O2SAT 98
== END 2021-02-19 23:08 | disposition home or self-care (01) ==
PROVIDERS: Emergency Provider Emergency Medicine; PCP Family Medicine
DX: G43.909 Migraine, unspecified, not intractable, without status migrainosus (principal); F17.210 Nicotine dependence, cigarettes, uncomplicated
CPT/HCPCS: 96374; 96375; 99283; J1170; J1200; J2270; J2765

== ENCOUNTER → 2021-04-05 08:36 | Outpatient (BNVA) | payer BC, SELFPAY | PROVIDERS: PCP Family Medicine; Visit Provider Orthopaedic Surgery | DX: Z48.89 Encounter for other specified surgical aftercare (principal) | CPT/HCPCS: 72040 ==

== ENCOUNTER → 2021-05-04 08:30 | Outpatient (BNVA) | payer BC, SELFPAY | PROVIDERS: PCP Family Medicine; Visit Provider Orthopaedic Surgery | DX: Z48.89 Encounter for other specified surgical aftercare (principal); Z47.89 Encounter for other orthopedic aftercare; Z98.890 Other specified postprocedural states | CPT/HCPCS: 72040 ==

== ENCOUNTER → 2021-06-28 10:10 | Outpatient (BNVA) | payer BC, SELFPAY | PROVIDERS: PCP Family Medicine; Visit Provider Physician Assistant | DX: Z48.89 Encounter for other specified surgical aftercare (principal); Z98.1 Arthrodesis status | CPT/HCPCS: 72040 ==

== ENCOUNTER 2021-09-06 14:53 | Outpatient (CLI) | payer BC, SELFPAY ==
--- NOTE | 2021-09-06 14:59 | MM_ITS ---
WS: [id number] BILATERAL SCREENING 3D TOMOSYNTHESIS DIGITAL MAMMOGRAM WITH CAD HISTORY: SCREENING COMPARISON: 03/11/2019 and 01/20/2013 Bilateral CC and MLO views submitted. Computer aided detection analyzed. Breast composition: The breasts are heterogeneously dense, which may obscure small masses. No suspici ous masses, microcalcifications or architectural distortion. The asymmetries within each breast are s table over multiple prior years. MM/[place] [id number] IMPRESSION: BI-RADS: 2-Benign FOLLOW UP: 1 Year Follow-up
== END 2021-09-06 14:54 | disposition home or self-care (01) ==
LOC: RADSHAW 14:55
PROVIDERS: PCP Family Medicine; Visit Provider Family Medicine
DX: Z12.31 Encounter for screening mammogram for malignant neoplasm of breast (principal)
CPT/HCPCS: 77063; 77067

== ENCOUNTER → 2021-09-13 15:15 | Outpatient (BNVA) | payer BC, SELFPAY | PROVIDERS: PCP Family Medicine; Visit Provider Physician Assistant | DX: Z47.89 Encounter for other orthopedic aftercare (principal); Z98.1 Arthrodesis status | CPT/HCPCS: 72040 ==

== ENCOUNTER 2021-11-08 15:37 | Outpatient (CLI) | payer BC, SELFPAY ==
--- NOTE | 2021-11-08 | XR_ITS ---
WS: [email or web address] Exam: XR hip RT 2-3V wo/w pel* [id number] Date/Time of Exam: 11/08/2021 12:00 AM Reason For Exam: RIGHT HIP PAIN Comparison 12/04/2020. No acute fracture or dislocation. Moderate degenerative thinning of the joint compartment. Hypertroph ic spurring seen along the superior lateral margin of the acetabulum. Normal soft tissues. XR/XR hip RT 2-3V wo/w pel* [id number] IMPRESSION: 1. Moderate degenerative changes progressive since prior study. No fracture or dislocation.
== END 2021-11-08 15:38 | disposition home or self-care (01) ==
LOC: RADOUTREAD 15:39
PROVIDERS: PCP Family Medicine; Visit Provider Family Medicine
DX: M25.551 Pain in right hip (principal)
CPT/HCPCS: 73502

== ENCOUNTER 2023-02-18 11:13 | Outpatient (CLI) | payer BC, SELFPAY ==
--- NOTE | 2023-02-18 | MM_ITS ---
WS: [id number] BILATERAL 3D TOMOSYNTHESIS DIGITAL SCREENING MAMMOGRAPHY WITH CAD CLINICAL INFORMATION: ANNUAL SCREENING HISTORY: Screening mammogram. No current complaints. COMPARISON: 09/06/2021 TECHNIQUE: Bilateral CC and MLO views. FINDINGS: The breasts are composed of heterogeneous fibroglandular density tissue, which can limit the detectio n of small underlying mass lesions. No suspicious mass, asymmetry, calcifications, or architectural d istortion. No evidence of malignancy. A few tiny incidental punctate calcifications. IMPRESSION: MM/[place] [id number] BI-RADS: 2-Benign FOLLOW UP: 1 Year Follow-up Recommend return to annual screening mammography.
== END 2023-02-18 11:14 | disposition home or self-care (01) ==
LOC: RAD 11:14
PROVIDERS: PCP Family Medicine; Visit Provider Family Medicine
DX: Z12.31 Encounter for screening mammogram for malignant neoplasm of breast (principal)
CPT/HCPCS: 77063; 77067

== ENCOUNTER 2023-11-05 12:31 | Outpatient (CLI) | payer BC, SELFPAY ==
--- NOTE | 2023-11-05 12:41 | MR_ITS ---
WS: [id number] MRI LUMBAR SPINE NONCONTRAST TECHNIQUE: Sagittal T1, T2 and STIR imaging. Axial T1 and T2 imaging. CLINICAL INFORMATION: LUMBOSACRAL SPONDYLOSIS W/RADICULOPATHY COMPARISON: MRI 04/17/2020 FINDINGS: Mild lumbar curve. No acute compression. Disc bulging worse at L4-5. This is similar to previous.Shal low central disc protrusion at T11-T12 with slight effacement of the ventral thecal sac. L1-L2: Mild annular bulging. Spinal canal and foramen are patent. Mild facet arthropathy. L2-L3: Mild annular bulging. Mild facet arthropathy.Spinal canal and foramen are patent. L3-L4: Mild disc bulging with osteophytic ridging. Slight narrowing RIGHT subarticular recess. Modera te facet arthropathy. Mild central canal stenosis. Mild RIGHT greater than LEFT foraminal narrowing. Central canal stenosis at this level is slightly progressed. L4-L5: Mild disc bulging with moderate central canal stenosis. Impingement on the RIGHT greater than LEFT subarticular recess. Moderate facet arthropathy. Mild bilateral foraminal narrowing. L5-S1: Slight retrolisthesis L5 on S1. Mild disc bulging with osteophytic ridging. Impingement brendon sing LEFT greater than RIGHT S1 nerve roots. Mild facet arthropathy. Mild to moderate bilateral ernst inal narrowing unchanged. Incidental Tarlov cyst in the sacrum. Visualized pelvic bony structures: Normal. Paravertebral soft tissues: Normal. MR/MR lumbar spine wo con* [id number] IMPRESSION: 1. Mild lumbar curve. No acute compression. Disc base narrowing worse at L5-S1 . 2. Disc bulge L4-5 with impingement the RIGHT greater than LEFT traversing L5 nerve roots with moderate central canal stenosis progressed compared to previou s. 3. Mild central canal stenosis L3-4 with impingement on the traversing RIGHT L 4 nerve root in the subarticular recess also progressed compared to previous. 4. Disc bulging L5-S1 with impingement of the traversing LEFT greater than RIG HT S1 nerve roots. This is similar to previous. 5. Moderate facet arthropathy L4-5. 6. Mild to moderate stable foraminal narrowing described above.
== END 2023-11-05 12:32 | disposition home or self-care (01) ==
LOC: RAD 12:36
PROVIDERS: PCP Family Medicine; Visit Provider General Practice
DX: M47.27 Other spondylosis with radiculopathy, lumbosacral region (principal); M48.061 Spinal stenosis, lumbar region without neurogenic claudication; M51.36 Other intervertebral disc degeneration, lumbar region
CPT/HCPCS: 72148

== ENCOUNTER 2024-01-15 08:27 | Outpatient (CLI) | payer BC, SELFPAY ==
--- NOTE | 2024-01-15 08:31 | MR_ITS ---
WS: [id number] MRI BRAIN WITH AND WITHOUT CONTRAST HISTORY: TRIGEMINAL NEURALGIA COMPARISON: None available. TECHNIQUE: Multiplanar imaging performed through the brain with MultiHance 14 ml's IV. Diffusion imaging is normal. No acute infarct. Mild bilateral frontal lobe atrophy. T2 and FLAIR signal hyperintensities throughout the white matter. Slightly greater distribution on th e LEFT in the periventricular and subcortical locations. No prior infarct. Posterior fossa is negativ e. No significant hippocampal atrophy. Ventricles and extra-axial spaces are normal. Clivus and pituitary gland are normal. Visualized posterior fossa and brainstem are also normal. Postcontrast images are negative for masses or vascular malformations. Dural venous sinuses are normal. Paranasal sinuses: Well aerated with no significant disease. Mastoid air cells: Normal. Calvarium and scalp: Normal. MR/MR head wo/w con [id number] IMPRESSION: 1. No acute infarct and no hemorrhage. 2. Mild bilateral frontal lobe atrophy. 3. No hippocampal atrophy. 4. Mild to moderate scattered T2 and FLAIR signal hyperintensities in the fei ventricular white matter. This can be seen with small vessel disease, diabetes, hypertension or migraines. 5. No enhancing mass identified.
[2024-01-15] MEDS: gadobenate dimeglumine 20 mL vial 14 ML IV (08:52)
== END 2024-01-15 08:28 | disposition home or self-care (01) ==
LOC: RAD 08:28
PROVIDERS: PCP Family Medicine; Visit Provider Family Medicine
DX: G50.0 Trigeminal neuralgia (principal)
CPT/HCPCS: 70553; A9577

== ENCOUNTER 2025-03-06 05:35 | Inpatient (IN) | payer BC, MEDICARE, SELFPAY ==
[2025-03-06] VITALS (12 sets, daily range): BP systolic 126–154; BP diastolic 73–93; PULSE 69–105; RESP 16–26; TEMP 36.4–36.9; O2SAT 91–99; BMI 27.4
--- OUTSIDE RECORDS SUMMARY | 2025-03-06 05:45 | XMS_ITS | Encounter Summary ---
Author Organization [facility] Address [address] [place] [address] Care Team Providers Care Wood Car Builder Name Role Phone Mauro Soliman MD Primary Care Provider +1- [phone] Encounter Details Date Type Department Care Team (Latest Contact Info) Description 03/15/2005 Outpatient Historical [facility] Family Medicine [place] [address] [facility] [address] [place] [phone] Mauro Soliman MD [address] 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
--- OUTSIDE RECORDS SUMMARY | 2025-03-06 05:45 | XMS_ITS | Encounter Summary ---
Author Organization [facility] Address [address] [place] [address] Care Team Providers Care Intensive Care Medicine Specialist Name Role Phone Mauro Soliman MD Primary Care Provider +1- [phone] Encounter Details Date Type Department Care Team (Latest Contact Info) Description 11/05/1999 Outpatient Historical [facility] Family Medicine- [place] [address] [place] [address] Monik Barraza NO ADDRESS ON FILE Disorders of bursae and tendons in shoulder region, unspecified (Primary Dx) Social History Tobacco Use Types Packs/Day Years Used Date Smoking Tobacco: Never Assessed Comments Unknown Sex and Gender Information Value Date Recorded Sex Assigned at Not on file 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
--- OUTSIDE RECORDS SUMMARY | 2025-03-06 05:45 | XMS_ITS | Encounter Summary ---
Author Organization [facility] Address [address] [place] [address] Care Team Providers Care Semiconductor Wafers Saw Operator Name Role Phone Mauro Soliman MD Primary Care Provider +1- [phone] Encounter Details Date Type Department Care Team (Latest Contact Info) Description 07/09/1999 Outpatient Historical [facility] Family Medicine [place] 104 [facility] [address] [place] [address] Vick Corrales DO NO ADDRESS ON FILE Urinary tract infection, site not specified (Primary Dx); Backache, unspecified Social History Tobacco Use Types Packs/Day Years Used Date Smoking Tobacco: Never Assessed Comments Unknown Sex and Gender Information Value Date Recorded Sex Assigned at Not on file 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
--- OUTSIDE RECORDS SUMMARY | 2025-03-06 05:45 | XMS_ITS | Encounter Summary ---
Author Organization [facility] Address [address] [place] [address] Care Team Providers Care Metal Burrer Name Role Phone Mauro Soliman MD Primary Care Provider +1- [phone] Encounter Details Date Type Department Care Team (Latest Contact Info) Description 03/27/1999 Outpatient Historical [facility] Family Medicine [place] 104 [facility] [address] [place] [address] Vick Corrales DO NO ADDRESS ON FILE Acute bronchitis (Primary Dx) Social History Tobacco Use Types Packs/Day Years Used Date Smoking Tobacco: Never Assessed Comments Unknown Sex and Gender Information Value Date Recorded Sex Assigned at Not on file 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
--- OUTSIDE RECORDS SUMMARY | 2025-03-06 05:45 | XMS_ITS | Encounter Summary ---
Author Organization [employer] Address [address] [place] [address] Care Team Providers Care Hospital Pharmacy Technician Name Role Phone Mauro Soliman MD Primary Care Provider +1- [phone] Encounter Details Date Type Department Care Team (Late st Contact Info) Description 02/28/2005 Inpatient Historical [facility] [place] MD [address] [address] ABDOMINAL PAIN GENERALIZED (Primary Dx) Social History Tobacco Use Types Packs/Day Years Used Date Smoking Tobacco: Never Assessed Comments Unknown Sex and Gender Information Value Date Recorded Sex Assigned at Not on file 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 Gender Identity Not on file Sexual Orientation Not on file documented as of this encounter Plan of Treatment Not on file documented as of this encounter Procedures Procedure Name Priority Date/Time Associated Diagnosis Comments CBC WITH DIFFERENTIAL Routine 02/28/2005 5:15 AM CDT COMPREHENSIVE METABOLIC PANEL Routine 02/28/2005 5:15 AM CDT documented in this encounter Results * (ABNORMAL) COMPREHENSIVE METABOLIC PANEL (02/28/2005 5:15 AM CDT) GLUCOSE 224(H) 70 - 110 mg/dL INTERFACE SYSTEM BUN 25(H) 7 - 17 mg/dL INTERFACE SYSTEM CREATININE 0.8 0.7 - 1.2 mg/dL INTERFACE SYSTEM SODIUM 142 136 - 145 mEq/L INTERFACE SYSTEM POTASSIUM 3.5 3.5 - 5.0 mEq/L INTERFACE SYSTEM CO2 22 22 - 32 mmol/l INTERFACE SYSTEM CHLORIDE 106 95 - 110 mEq/L INTERFACE SYSTEM CALCIUM 9.2 8.4 - 10.5 mg/dL INTERFACE SYSTEM ALKALINE PHOSPHATASE 92 38 - 126 IU/L INTERFACE SYSTEM TOTAL PROTEIN 7.5 6.3 - 8.2 g/dL INTERFACE SYSTEM ALBUMIN 4.0 3.5 - 5.0 g/dL INTERFACE SYSTEM AST 37(H) 14 - 36 IU/L INTERFACE SYSTEM ALT 40 9 - 52 IU/L INTERFACE SYSTEM BILIRUBIN TOTAL 0.3 0.2 - 1.4 mg/dL INTERFACE SYSTEM GLOBULIN (CALC) 3.5 2.4 - 3.9 g/dL INTERFACE SYSTEM ANION GAP 18 9 - 20 mEq/L INTERFACE SYSTEM ALBUMIN/GLOBULIN RATIO 1.1 1.0 - 2.3 INTERFACE SYSTEM OSMOLALITY, CALCULATED 302(H) 275 - 295 mOsm/Kg INTERFACE SYSTEM 02/28/2005 5:15 AM CDT [facility] [place] MD CHEMISTRY ORDERABLES Final R esult INTERFACE SYSTEM Refer to clinic/hospital department * (ABNORMAL) CBC WITH DIFFERENTIAL (02/28/2005 5:15 AM CDT) WBC 15.1(H) 4.5 - 11.0 K/ul INTERFACE SYSTEM RBC 5.24 4.20 - 5.40 Mil/ul INTERFACE SYSTEM HEMOGLOBIN 13.4 12.0 - 16.0 g/dL INTERFACE SYSTEM HEMATOCRIT 42.7 36.0 - 46.0 % INTERFACE SYSTEM MCV 81.5(L) 84.0 - 103.0 Fl INTERFACE SYSTEM MCH 25.6(L) 27.0 - 34.0 pg INTERFACE SYSTEM MCHC 31.4 30.0 - 35.0 g/dL INTERFACE SYSTEM RDW 14.7(H) 11.0 - 14.5 % INTERFACE SYSTEM PLATELETS 291 140 - 440 K/ul INTERFACE SYSTEM MPV 9.9 8.9 - 12.8 Fl INTERFACE SYSTEM NEUTROPHILS 82.7(H) 42.2 - 75.2 % INTERFACE SYSTEM LYMPHOCYTES 10.0(L) 24.0 - 44.0 % INTERFACE SYSTEM MONOCYTES 5.9 2.0 - 10.0 % INTERFACE SYSTEM EOSINOPHILS 0.9 0.0 - 7.0 % INTERFACE SYSTEM BASOPHILS 0.3 0.0 - 1.0 % INTERFACE SYSTEM NEUTROPHIL ABSOLUTE 12.5(H) 2.0 - 8.0 K/uL INTERFACE SYSTEM LYMPHOCYTE ABSOLUTE 1.5 1.2 - 4.0 K/ul INTERFACE SYSTEM MONOCYTE ABSOLUTE 0.9(H) 0.1 - 0.6 K/ul INTERFACE SYSTEM EOSINOPHIL ABSOLUTE 0.1 0.0 - 0.7 K/ul INTERFACE SYSTEM BASOPHILS ABSOLUTE 0.0 0.0 - 0.2 K/ul INTERFACE SYSTEM PERIPHERAL BLOOD SMEAR REVIEW Automated Diff INTERFACE SYSTEM 02/28/2005 5:15 AM CDT [facility] Val[place] MD HEMATOLOGY ORDERABLES Final Result INTERFACE SYSTEM Refer to clinic/hospital department documented in this encounter Visit Diagnoses Diagnosis Abdominal pain, generalized- Primary documented in this encounter Care Teams Hospital Pharmacy Technician Relationship Specialty Start Date End Date Mauro Soliman MD PCP - General 02/22/03 documented as of this encounter
--- OUTSIDE RECORDS SUMMARY | 2025-03-06 05:45 | XMS_ITS | Encounter Summary ---
Author Organization [facility] Address [address] [place] [address] Care Team Providers Care Production Control Expert Name Role Phone Mauro Soliman MD Primary Care Provider +1- [phone] Encounter Details Date Type Department Care Team (Latest Contact Info) Description 07/02/1999 Outpatient Historical [facility] Family Medicine [place] 104 [facility] 60 [place] [address] Vick Corrales, NO ADDRESS ON FILE Pyelonephritis, unspecified (Primary Dx) Social History Tobacco Use Types Packs/Day Years Used Date Smoking Tobacco: Never Assessed Comments Unknown Sex and Gender Information Value Date Recorded Sex Assigned at Not on file 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
--- OUTSIDE RECORDS SUMMARY | 2025-03-06 05:45 | XMS_ITS | Encounter Summary ---
Author Organization [facility] Address [address] [place] [address] Care Team Providers Care Director Of Staff Development Name Role Phone Mauro Soliman MD Primary Care Provider +1- [phone] Encounter Details Date Type Department Care Team (Latest Contact Info) Description 01/09/[address] 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
--- OUTSIDE RECORDS SUMMARY | 2025-03-06 05:45 | XMS_ITS | Encounter Summary ---
Author Organization [facility] Address [address] [place] [address] Care Team Providers Care Burn Out Tender Lace Name Role Phone Mauro Soliman MD Primary Care Provider +1- [phone] Encounter Details Date Type Department Care Team (Latest Contact Info) Description 10/18/1998 Outpatient Historical 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
--- OUTSIDE RECORDS SUMMARY | 2025-03-06 05:45 | XMS_ITS | Encounter Summary ---
Author Organization [email or web address] [facility] Address [address] [place] [address] Care Team Providers Care Underwriting Support Manager Name Role Phone Mauro Soliman MD Primary Care Provider +1- [phone] Encounter Details Date Type Department Care Team (Latest Contact Info) Description 02/28/2005 Outpatient Historical [facility] [address] [place] [address] AMBULANCE, [facility] ABDOMINAL PAIN UNSPEC SITE (Primary Dx) Social History Tobacco Use Types Packs/Day Years Used Date Smoking Tobacco: Never Assessed Comments Unknown Sex and Gender Information Value Date Recorded Sex Assigned at Not on file Legal Sex Female 3:47 AM MANAGER RFID Gender Identity Not on file Sexual Orientation Not on file documented as of this encounter Plan of Treatment Not on file documented as of this encounter Visit Diagnoses Diagnosis Abdominal pain, unspecified site- Primary documented in this encounter Care Teams Underwriting Support Manager Relationship Specialty Start Date End Date Mauro Soliman MD PCP - General 02/22/03 documented as of this encounter
--- OUTSIDE RECORDS SUMMARY | 2025-03-06 05:45 | XMS_ITS | Encounter Summary ---
Author Organization [facility] Address [address] [place] [address] Care Team Providers Care Financial Reporting Accountant Name Role Phone Mauro Soliman MD Primary Care Provider +1- [phone] Encounter Details Date Type Department Care Team (Latest Contact Info) Description 02/13/2000 Outpatient Historical [facility] Family Medicine [place] 104 [facility] [address] [place] [address] Vick Corrales, NO ADDRESS ON FILE Acute sinusitis, unspecified (Primary Dx) Social History Tobacco Use Types Packs/Day Years Used Date Smoking Tobacco: Never Assessed Comments Unknown Sex and Gender Information Value Date Recorded Sex Assigned at Not on file 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
--- OUTSIDE RECORDS SUMMARY | 2025-03-06 05:46 | XMS_ITS | Clinical Summary ---
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 Gender Identity Not on file Sexual Orientation Not on file Plan of Treatment Health Maintenance Due Date Last Done Comments DTAP/TDAP/TD VACCINES (1 - Tdap) 1976 BREAST CANCER SCREENING 1997 COLORECTAL SCREENING 2002 Colorectal Cancer Screening 2002 FIT-DNA Q 3 years 2002 FIT/FOBT Q 1 year 2002 Flex Sig/CT Colonography Q 5 years 2002 PNEUMOCOCCAL VACCINE 50+ YEARS (1 of 1 - PCV) 03/03/20 07 ZOSTER VACCINE (1 of 2) 2007 OSTEOPOROSIS SCREENING 2022 INFLUENZA VACCINE (#1) 2024 RSV VACCINE (60+ or ) (1 - 1-dose 75+ series) 2032 Care Teams Chaperon Relationship Specialty Start Date End Date Mauro Soliman MD PCP - General 02/22/03
--- OUTSIDE RECORDS SUMMARY | 2025-03-06 05:46 | XMS_ITS | Encounter Summary ---
Author Organization [facility] Address [address] [place] [address] Care Team Providers Care Cell Plasterer Name Role Phone Mauro Soliman MD Primary Care Provider +1- [phone] Encounter Details Date Type Department Care Team (Late st Contact Info) Description 06/04/2004 Outpatient Historical [facility] Occupational Medicine-[facility] [place] [address] [place] [address] Henrique Gandhi MD 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
--- OUTSIDE RECORDS SUMMARY | 2025-03-06 05:46 | XMS_ITS | Encounter Summary ---
Author Organization [facility] Address [address] [place] [address] Care Team Providers Care Innovation Analyst Name Role Phone Mauro Soliman MD Primary Care Provider +1- [phone] Encounter Details Date Type Department Care Team (Latest Contact Info) Description 11/08/2003 Outpatient Historical [facility] Medicine [place] 104 [facility] [address] [place] [address] Jennifer De Luna, ADOPTION SPECIALIST [address] [place] [address] ACUTE URI NOS (Primary Dx); ACUTE SINUSITIS NOS Social History Tobacco Use Types Packs/Day Years Used Date Smoking Tobacco: Never Assessed Comments Unknown Sex and Gender Information Value Date Recorded Sex Assigned at Not on file 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
--- OUTSIDE RECORDS SUMMARY | 2025-03-06 05:46 | XMS_ITS | Encounter Summary ---
Author Organization [facility] Address [address] [place] [address] Care Team Providers Care Evp Chief Exploration Officer Name Role Phone Mauro Soliman MD Primary Care Provider +1- [phone] Encounter Details Date Type Department Care Team (Latest Contact Info) Description 10/08/2000 Outpatient Historical [facility] Family Medicine [place] 104 [facility] 60 [place] [address] Vikc Corrales, DO NO ADDRESS ON FILE Corns and callosities (Primary Dx) Social History Tobacco Use Types Packs/Day Years Used Date Smoking Tobacco: Never Assessed Comments Unknown Sex and Gender Information Value Date Recorded Sex Assigned at Not on file 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
--- OUTSIDE RECORDS SUMMARY | 2025-03-06 05:46 | XMS_ITS | Encounter Summary ---
Author Organization [facility] Address [address] [place] [address] Care Team Providers Care Adobe Developer Name Role Phone Mauro Soliman MD Primary Care Provider +1- [phone] Encounter Details Date Type Department Care Team (Latest Contact Info) Description 03/14/2003 Outpatient Historical [facility] [address] [place] [address] [place] MD [address] [place] [address] ABDOMINAL PAIN RUQ (Primary Dx) Social History Tobacco Use Types Packs/Day Years Used Date Smoking Tobacco: Never Assessed Comments Unknown Sex and Gender Information Value Date Recorded Sex Assigned at Not on file Legal Sex Female 3:47 AM DISABILITY ADVOCATE Gender Identity Not on file Sexual Orientation Not on file documented as of this encounter Plan of Treatment Not on file documented as of this encounter Visit Diagnoses Diagnosis Abdominal pain, right upper quadrant- Primary documented in this encounter Care Teams Adobe Developer Relationship Specialty Start Date End Date Mauro Soliman MD PCP - General 02/22/03 documented as of this encounter
--- OUTSIDE RECORDS SUMMARY | 2025-03-06 05:46 | XMS_ITS | Encounter Summary ---
Author Organization [facility] Address [address] [place] [address] Care Team Providers Care Skiver Uppers Or Linings Name Role Phone Mauro Soliman MD Primary Care Provider +1- [phone] Encounter Details Date Type Department Care Team (Late st Contact Info) Description 10/18/2004 Outpatient Historical [facility] Occupational Medicine-[facility] [place] [address] [place] [address] Henrique Gandhi MD 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
--- OUTSIDE RECORDS SUMMARY | 2025-03-06 05:46 | XMS_ITS | Encounter Summary ---
Author Organization [facility] Address [address] [place] [address] Care Team Providers Care Implementation Architect Name Role Phone Mauro Soliman MD Primary Care Provider +1- [phone] Encounter Details Date Type Department Care Team (Late st Contact Info) Description 09/13/2004 Outpatient Historical [facility] Imaging Services-[facility] [place] [address] [place] [address] Henrique Gandhi MD 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
--- OUTSIDE RECORDS SUMMARY | 2025-03-06 05:46 | XMS_ITS | Encounter Summary ---
Author Organization [employer] [facility] Address [address] [place] [address] Care Team Providers Care State Tested Nursing Assistant Name Role Phone Mauro Soliman MD Primary Care Provider [phone]- [phone] Encounter Details Date Type Department Care Team (Latest Contact Info) Description 02/22/2003 Outpatient Historical [facility] Cliff Beach MD [facility] [address] POSTSURG AFTERCARE OTHER SPECIFIED (Primary Dx) Social History Tobacco Use Types Packs/Day Years Used Date Smoking Tobacco: Never Assessed Comments Unknown Sex and Gender Information Value Date Recorded Sex Assigned at Not on file 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
--- OUTSIDE RECORDS SUMMARY | 2025-03-06 05:46 | XMS_ITS | Encounter Summary ---
Author Organization [facility] Address [address] [place] [address] Care Team Providers Care Specialist Managers Name Role Phone Mauro Soliman MD Primary Care Provider [phone]- [phone] Encounter Details Date Type Department Care Team (Late st Contact Info) Description 07/16/2002 Outpatient Historical [facility] [place] [address] [facility] [address] [place] [id number] Mauro Soliman MD [address] [facility] [address] [place] [phone] Social History Tobacco Use Types Packs/Day Years Used Date Smoking Tobacco: Never Assessed Comments Unknown Sex and Gender Information Value Date Recorded Sex Assigned at Not on file 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
--- OUTSIDE RECORDS SUMMARY | 2025-03-06 05:46 | XMS_ITS | Encounter Summary ---
Author Organization [facility] Address [address] 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
--- OUTSIDE RECORDS SUMMARY | 2025-03-06 05:46 | XMS_ITS | Encounter Summary ---
Author Organization [facility] Address [address] [place] [address] Care Team Providers Care Livestock Nutrition Territory Manager Name Role Phone Mauro Soliman MD Primary Care Provider [phone]- [phone] Encounter Details Date Type Department Care Team (Latest Contact Info) Description 02/22/2003 Outpatient Historical [facility] Imaging Services-[place] [address] [place] [address] Cliff Beach MD [address] [place] [id number] ABDOMINAL PAIN UNSPEC SITE (Primary Dx) Social History Tobacco Use Types Packs/Day Years Used Date Smoking Tobacco: Never Assessed Comments Unknown Sex and Gender Information Value Date Recorded Sex Assigned at Not on file 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
--- OUTSIDE RECORDS SUMMARY | 2025-03-06 05:46 | XMS_ITS | Encounter Summary ---
Author Organization [facility] Address [address] [place] [address] Care Team Providers Care Guest Relations Manager Name Role Phone Mauro Soliman MD Primary Care Provider [phone]- [phone] Encounter Details Date Type Department Care Team (Late st Contact Info) Description 10/31/2004 Outpatient Historical [facility] Occupational [facility] [address] [place] [address] Henrique Gandhi MD 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
--- OUTSIDE RECORDS SUMMARY | 2025-03-06 05:46 | XMS_ITS | Data Portability ---
Author Organization [facility] Fernando Shoemaker [facility] Chichi Matute, [facility] Address [address] [facility] [address] [place] [address] Assessment Encounter Date Assessment Date Assessment LastModified by Organization Details LastModified Time 04/07/2024 04/07/2024 Document scribed by Carlos Byrd Lapel Baster. I was present during interview and exam. I have reviewed and agree with above documentation . Dr. Juan La. [email or web address] Not available 04/07/2024 12:08:09 Plan of Treatment Reminders Order Date Submit Date Provider Last Modified By Organization Details Last Modified Time Details Appointments None recorded. Lab calprotecti n, QN, stool 2024 025 [email or web address] [employer] [facility] [facility], [address] [place] [address] 248, [address], [place], [address], 17:07:30 celiac disease comprehensi ve panel, serum 2024 025 JOSE [employer] [facility], [address] [facility] [address], [address], [place], [address], 16:23:26 CBC w/ manual diff [email or web address] [place] [address] [facility], [address] [facility], [address], [place], [address], 11:50:03 CMP, serum or plasma 2024 025 [facility], [address], [address], [place], [address], 5 15:57:00 TSH, serum or plasma [email or web address] [place], [place] [address], [address], [address], [place], [address], 5 09:48:21 T4, free, serum 2024 025 [facility], [address] [place] [address], [address], [place], [address], 5 16:23:29 giardia + cryptospori dium Ag, stool 2024 025 [facility], [address], [address], [place], [address], 17:07:30 ige, total, serum 2024 025 [facility], [address] [place] [address] 248, [address], [place], [address], 5 16:23:28 iron + TIBC + ferritin, serum 2023 024 [facility] [employer] [facility], [address] [place] [address], [address], [place], [address], 5 17:07:29 CBC 2023 024 [facility], [address], [address], [place], [address], 14:57:25 Referral gastroenter ologist referral 2024 025 astrange 2 [facility] [address] [place], [address], 16:28:55 Procedures None recorded. Surgeries None recorded. Imaging None recorded. Medication Orders prednisone 20 mg tablet 2024 025 [facility], [place], [address], 05:02:00 cefadroxil 500 mg capsule 2024 025 [facility], [place], [address], 05:01:58 Patient TargetsNo targets recorded. Patient InstructionsNo instructions recorded. 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 Chronic diarrhea of unknown origin Referring Physician: Huy Cobos, Family Medicine, Encounter Date: 07/06/2024 Results Created Date Observation Date Name Description Value Unit Range Abnormal Flag Note LastModifiedBy Organization Detail LastModifiedTime 03/17/2003/17/2024 CBC WBC 6.2 x10 4.0-10 .5 Not Available [facility] [address] [facility] 1, [place], [address], 03/17/2024 09:12:40 03/17/2003/17/2024 CBC RBC 4.94 x10 3.50-5 .50 Not Available [facility] [address] [facility], [place], [address], 03/17/2024 09:12:40 03/17/2003/17/2024 CBC HGB 10.6 g/dL 12.0-1 6.0 low Not Available [facility] [address] [facility] 1, [place], [address], 03/17/2024 09:12:40 03/17/2003/17/2024 CBC HCT 35.5 % 37.0-4 7.0 low Not Available [facility] [address] [facility] 1, [place], [address], 03/17/2024 09:12:40 03/17/2003/17/2024 CBC MCV 71.9 fL 80.0-9 9.9 low Not Available [facility] [address] [facility] 1, [place], [address], 03/17/2024 09:12:40 03/17/2003/17/2024 CBC MCH 21.5 pg 27.0-3 2.0 low Not Available [facility] [address] [facility] 1, [place], [address], 03/17/2024 09:12:40 03/17/2003/17/2024 CBC MCHC 29.9 g/dL 32.0-3 6.0 low Not Available [facility] [address] [facility] 1, [place], [address], 03/17/2024 09:12:40 03/17/2003/17/2024 CBC RDW 18.6 % 11.5-1 4.5 high Not Available [facility] [address] [facility] 1, [place], [address], 03/17/2024 09:12:40 03/17/2003/17/2024 CBC plt 299.3 x10 140.0- 451.0 Not Available [facility] [address] [facility] 1, [place], [address], 03/17/2024 09:12:40 03/17/2003/17/2024 CBC lymphocytes % 37.0 % 20.0-5 0.0 Not Available [facility] [address] [facility] 1, [place], [address], 03/17/2024 09:12:40 03/17/2003/17/2024 CBC granulcytes % 48.8 % 30.0-7 0.0 Not Available [facility] [address] [facility] 1, [place], [address], 03/17/2024 09:12:40 03/17/2003/17/2024 CBC monocytes % 9.9 % 2.0-16 .0 Not Available [facility] [address] [facility] 1, [place], [address], 03/17/2024 09:12:40 03/17/2003/17/2024 CBC granulcytes# 3.0 x10 Not Asuncion ilable [facility] [address] [facility] 1, [place], [address], 03/17/2024 09:12:40 03/17/2003/17/2024 CBC lymphocytes # 2.3 x10 Not Available [facility] [address] [facility] 1, [place], [address], 03/17/2024 09:12:40 03/17/2003/17/2024 CBC monocytes # 0.6 x10 Not Avai lable [facility] [address] [facility] 1, [place], [address], 03/17/2024 09:12:40 03/17/2003/17/2024 CMP (FEMA LE) glucose 110.0 mg/dL 60.0-9 9.0 high Not Available [facility] [address] [facility] 1, [place], [address], 03/17/2024 09:29:01 03/17/2003/17/2024 CMP (FEMA LE) BUN (blood urea nitrogen) 23.0 mg/dL 10.0-2 6.0 Not Available [facility] [address] [facility] 1, [place], [address], 03/17/2024 09:29:01 03/17/2003/17/2024 CMP (FEMA LE) creatinine (serum) 0.7 mg/dL 0.4-1. 5 Not Available [facility] [address] [facility], [place], [address], 03/17/2024 09:29:01 03/17/20 24 03/17/2024 CMP (FEMA LE) BUN/creatini ne ratio 32.39 ratio Not Available [facility] [address] [facility], [place], [address], 03/17/2024 09:29:01 03/17/2003/17/2024 CMP (FEMA LE) eGFR calculated 87.3 Not Available [facility] [address] [facility] 1, [place], [address], 03/17/2024 09:29:01 03/17/20 24 03/17/2024 CMP (FEMA LE) total protein 7.6 g/dL 6.0-8. 5 Not Available [facility] [address] [facility] 1, [place], [address], 03/17/2024 09:29:01 03/17/20 24 03/17/2024 CMP (FEMA LE) total bilirubin 0.6 mg/dL 0.2-1. 3 Not Available [facility] [address] [facility] 1, [place], [address], 03/17/2024 09:29:01 03/17/20 24 03/17/2024 CMP (FEMA LE) albumin 4.5 g/dL 3.5-5. 5 Not Available [facility] [address] [facility], [place], [address], 03/17/2024 09:29:01 03/17/20 24 03/17/2024 CMP (FEMA LE) globulin 3.1 calc Not Available [facility] [address] [facility] 1, [place], [address], 03/17/2024 09:29:01 03/17/2003/17/2024 CMP (FEMA LE) AST (SGOT) 31.0 U/L 0.0-46 .0 Not Available [facility] [address] [facility], [place], [address], 03/17/2024 09:29:01 03/17/2003/17/2024 CMP (FEMA LE) altv (SGPT) 18.0 U/L 13.0-6 9.0 normal Not Available [facility] [address] [facility], [place], [address], 03/17/2024 09:29:01 03/17/2003/17/2024 CMP (FEMA LE) A/G ratio 1.5 ratio Not Available [facility] [address] [facility], [place], [address], 03/17/2024 09:29:01 03/17/2003/17/2024 CMP (FEMA LE) ALP phos 85.0 U/L 30.0-1 40.0 normal Not Available [facility] [address] [facility], [place], [address], 03/17/2024 09:29:01 03/17/2003/17/2024 CMP (FEMA LE) calcium 9.7 mg/dL 8.4-10 .5 Not Available [facility] [address] [facility] 1, [place], [address], 03/17/2024 09:29:01 03/17/2003/17/2024 CMP (FEMA LE) sodium 140.0 mmol/ L 136.0- 145.0 Not Available [facility] [address] [facility], [place], [address], 03/17/2024 09:29:01 03/17/20 24 03/17/2024 CMP (FEMA LE) potassium 4.8 mmol/ L 3.5-5. 1 Not Available [facility] [address] [facility] 1, [place], [address], 03/17/2024 09:29:01 03/17/2003/17/2024 CMP (FEMA LE) chloride 108.0 mmol/ L 98.0-1 10.0 normal Not Available [facility] [address] [facility], [place], [address], 03/17/2024 09:29:01 03/17/2003/17/2024 CMP (FEMA LE) C02 21.0 mmol/ L 22.0-3 1.0 low Not Available [facility] [address] [facility] 1, [place], [address], 03/17/2024 09:29:01 03/17/20 24 03/17/2024 CMP (FEMA LE) anion gap 11.0 calc Not Available [facility] [address] [facility] 1, [place], [address], 03/17/2024 09:29:01 03/17/2003/17/2024 CMP (FEMA LE) osmolality 293.2 calc Not Available [facility] [address] [facility] 1, [place], [address], 03/17/2024 09:29:01 03/17/2003/17/2024 LIPID PROFI LE (FEMA LE) cholesterol 216.0 mg/dL 0.0-20 0.0 high Not Available [facility] [address] [facility], [place], [address], 03/17/2024 09:29:03 03/17/2003/17/2024 LIPID PROFI LE (FEMA LE) trig 216.0 mg/dL 0.0-15 0.0 high Not Available [facility] [address] [address], [place], [address], 03/17/2024 09:29:03 03/17/2003/17/2024 LIPID PROFI LE (FEMA LE) HDL - direct 56.0 mg/dL >40.0 Not Available [facility] [address] [facility] 1, [place], [address], 03/17/2024 09:29:03 03/17/2003/17/2024 LIPID PROFI LE (FEMA LE) VLDL - direct 43.2 mg/dL Not Available [facility] [address] [address], [place], [address], 03/17/2024 09:29:03 03/17/2003/17/2024 LIPID PROFI LE (FEMA LE) LDL - direct 116.8 mg/dL 0.0-13 0.0 Not Available [facility] [address] [address], [place], [address], 03/17/2024 09:29:03 03/24/2003/25/2024 IRON, TIBC AND SIVA TIN PANEL iron, total 19 mcg/d L 45-160 low Not Available [employer] [address], [address], 03/25/2024 08:43:13 03/24/20 24 03/25/2024 IRON, TIBC AND SIVA TIN PANEL iron binding capacity 381 mcg/d L_(ca lc) 250-45 0 normal Not Available [facility] [address], [address], 03/25/2024 08:43:13 03/24/20 24 03/25/2024 IRON, TIBC AND SIVA TIN PANEL % saturation 5 %_(ca lc) 16-45 low Not Available [address] [address] [place], [address], 03/25/2024 08:43:13 03/24/2003/25/2024 IRON, TIBC AND SIVA TIN PANEL ferritin 41 NG/mL 16-288 normal Not Available [address], [address], 03/25/2024 08:43:13 03/24/2003/25/2024 RETIC ULOCY TE COUNT reticulocyte count, automated 1.7 % normal Not Available [address], [address], 03/25/2024 08:43:14 03/24/2003/25/2024 RETIC ULOCY TE COUNT reticulocyte , absolute 61013 cells /uL [address] high Not Available [address], [address], 03/25/2024 08:43:14 03/24/2003/25/2024 FOLAT E, SERUM folate, serum 14.7 NG/mL normal Refer ence Range Low: <3.4 Borde rline : 3.4-5 .4 Tiffanie l: >5.4 Not Available [address], [address], 03/25/2024 08:43:15 03/24/2003/25/2024 VITAM IN B12 vitamin B12 702 pg/mL 200-11 00 normal Not Available [address], [address], 03/25/2024 08:43:17 03/24/2003/24/2024 ESR (eryt hrocy te sedim entat ion rate) , blood SedRate 18 Not Available [facility] ([facility]) [address] [place], [address], 03/24/2024 11:57:53 03/26/20 24 03/26/2024 fecal occul t blood , immun oassa y, stool iFOB positi ve Not Available [facility] ([facility]) [address] [place], [address], 03/24/2024 11:59:32 06/16/19 25 06/16/2024 CBC WBC 8.5 x10 4.0-10 .5 Not Available [facility] [address] [address], [place], [address], 06/16/2024 13:57:09 06/16/1906/16/2024 CBC RBC 4.49 x10 3.50-5 .50 Not Available [facility] [address] [address], [place], [address], 06/16/2024 13:57:09 06/16/19 25 06/16/2024 CBC HGB 10.2 g/dL 12.0-1 6.0 low Not Available [facility] [address] [address], [place], [address], 06/16/2024 13:57:09 06/16/19 25 06/16/2024 CBC HCT 31.4 % 37.0-4 7.0 low Not Available [facility] [address] [facility] 1, [place], [address], 06/16/2024 13:57:09 06/16/19 25 06/16/2024 CBC MCV 70.0 fL 80.0-9 9.9 low Not Available [facility] [address] [facility] 1, [place], [address], 06/16/2024 13:57:09 06/16/19 25 06/16/2024 CBC MCH 22.7 pg 27.0-3 2.0 low Not Available [facility] [address] [facility] 1, [place], [address], 06/16/2024 13:57:09 06/16/1906/16/2024 CBC MCHC 32.5 g/dL 32.0-3 6.0 Not Available [facility] [address] [facility] 1, [place], [address], 06/16/2024 13:57:06/16/1906/16/2024 CBC RDW 19.4 % 11.5-1 4.5 high Not Available [facility] [address] [facility] 1, [place], [address], 06/16/2024 13:57:09 06/16/1906/16/2024 CBC plt 312.3 x10 140.0- 451.0 Not Available [facility] [address] [address], [place], [address], 06/16/2024 13:57:09 06/16/19 25 06/16/2024 CBC lymphocytes % 30.6 % 20.0-5 0.0 Not Available [facility] [address] [facility] 1, [place], [address], 06/16/2024 13:57:06/16/1906/16/2024 CBC granulcytes % 59.8 % 30.0-7 0.0 Not Available [facility] [address] [facility] 1, [place], [address], 06/16/2024 13:57:09 06/16/1906/16/2024 CBC monocytes % 6.6 % 2.0-16 .0 Not Available [facility] [address] [facility] 1, [place], [address], 06/16/2024 13:57:09 06/16/19 25 06/16/2024 CBC granulcytes# 5.1 x10 Not Asuncion ilable [facility] [address] [facility] 1, [place], [address], 06/16/2024 13:57:09 06/16/19 25 06/16/2024 CBC lymphocytes # 2.6 x10 Not Available [facility] [address] [facility] 1, [place], [address], 06/16/2024 13:57:09 06/16/19 25 06/16/2024 CBC monocytes # 0.6 x10 Not Avai lable [facility] [address] [facility] 1, [place], [address], 06/16/2024 13:57:09 06/16/19 25 06/17/2024 IRON, TIBC AND SIVA TIN PANEL iron, total 19 mcg/d L 45-160 low Not Available [facility] [address] [address] [place], [address], 06/17/2024 08:25:10 06/16/19 25 06/17/2024 IRON, TIBC AND SIVA TIN PANEL iron binding capacity 344 mcg/d L_(ca lc) 250-45 0 normal Not Available [address] [address] [place], [address], 06/17/2024 08:25:10 06/16/19 25 06/17/2024 IRON, TIBC AND SIVA TIN PANEL % saturation 6 %_(ca lc) 16-45 low Not Available [facility] [address] [address] [place], [address], 06/17/2024 08:25:10 06/16/19 25 06/17/2024 IRON, TIBC AND SIVA TIN PANEL ferritin 44 NG/mL 16-288 normal Not Available [facility] [address] [address] [place], [address], 06/17/2024 08:25:10 07/12/19 25 07/12/2024 CBC WBC 8.2 x10 4.0-10 .5 Not Available [facility] [address] [facility] 1, [place], [address], 07/12/2024 14:57:25 07/12/19 25 07/12/2024 CBC RBC 5.03 x10 3.50-5 .50 Not Available [facility] [address] [facility] 1, [place], [address], 07/12/2024 14:57:25 07/12/19 25 07/12/2024 CBC HGB 11.5 g/dL 12.0-1 6.0 low Not Available [facility] [address] [facility] 1, [place], [address], 07/12/2024 14:57:25 07/12/19 25 07/12/2024 CBC HCT 35.8 % 37.0-4 7.0 low Not Available [facility] [address] [facility] 1, [place], [address], 07/12/2024 14:57:25 07/12/19 25 07/12/2024 CBC MCV 71.2 fL 80.0-9 9.9 low Not Available [facility] [address] [facility] 1, [place], [address], 07/12/2024 14:57:25 07/12/19 25 07/12/2024 CBC MCH 22.8 pg 27.0-3 2.0 low Not Available [facility] [address] [facility] 1, [place], [address], 07/12/2024 14:57:25 07/12/19 25 07/12/2024 CBC MCHC 32.0 g/dL 32.0-3 6.0 Not Available [facility] [address] [facility] 1, [place], [address], 07/12/2024 14:57:25 07/12/19 25 07/12/2024 CBC RDW 18.4 % 11.5-1 4.5 high Not Available [facility] [address] [facility] 1, [place], [address], 07/12/2024 14:57:25 07/12/19 25 07/12/2024 CBC plt 344.5 x10 140.0- 451.0 Not Available [facility] [address] [facility] 1, [place], [address], 07/12/2024 14:57:25 07/12/19 25 07/12/2024 CBC lymphocytes % 31.0 % 20.0-5 0.0 Not Available [facility] [address] [address], [place], [address], 07/12/2024 14:57:25 07/12/19 25 07/12/2024 CBC granulcytes % 62.1 % 30.0-7 0.0 Not Available [facility] [address] [address], [place], [address], 07/12/2024 14:57:25 07/12/19 25 07/12/2024 CBC monocytes % 5.4 % 2.0-16 .0 Not Available [facility] [address] [facility] 1, [place], [address], 07/12/2024 14:57:25 07/12/19 25 07/12/2024 CBC granulcytes# 5.1 x10 Not Asuncion ilable [facility] [address] [address], [place], [address], 07/12/2024 14:57:25 07/12/19 25 07/12/2024 CBC lymphocytes # 2.5 x10 Not Available [facility] [address] [address], [place], [address], 07/12/2024 14:57:25 07/12/19 25 07/12/2024 CBC monocytes # 0.4 x10 Not Avai lable [facility] [address] [facility] 1, [place], [address], 07/12/2024 14:57:25 07/12/19 25 07/12/2024 CMP (FEMA LE) glucose 112.0 mg/dL 60.0-9 9.0 high Not Available [facility] [facility], [place], [address], 07/12/2024 15:57:00 07/12/19 25 07/12/2024 CMP (FEMA LE) BUN (blood urea nitrogen) 16.0 mg/dL 10.0-2 6.0 Not Available [facility] [address] [facility], [place], [address], 07/12/2024 15:57:00 07/12/19 25 07/12/2024 CMP (FEMA LE) creatinine (serum) 0.7 mg/dL 0.4-1. 5 Not Available [facility] [address] [facility], [place], [address], 07/12/2024 15:57:00 07/12/19 25 07/12/2024 CMP (FEMA LE) BUN/creatini ne ratio 22.86 ratio Not Available [facility] [address] [facility], [place], [address], 07/12/2024 15:57:00 07/12/19 25 07/12/2024 CMP (FEMA LE) eGFR calculated 88.7 Not Available [facility] [facility], [place], [address], 07/12/2024 15:57:00 02/10/07/12/2024 CMP (FEMA LE) total protein 8.1 g/dL 6.0-8. 5 Not Available [facility] [address] [facility], [place], [address], 07/12/2024 15:57:00 07/12/19 25 07/12/2024 CMP (FEMA LE) total bilirubin 0.5 mg/dL 0.2-1. 3 Not Available [facility] [address] [facility] 1, [place], [address], 07/12/2024 15:57:00 07/12/19 25 07/12/2024 CMP (FEMA LE) albumin 5.0 g/dL 3.5-5. 5 Not Available [facility] [address] [facility] 1, [place], [address], 07/12/2024 15:57:00 07/12/19 25 07/12/2024 CMP (FEMA LE) globulin 3.1 calc Not Available [facility] [address] [facility] 1, [place], [address], 07/12/2024 15:57:00 07/12/19 25 07/12/2024 CMP (FEMA LE) AST (SGOT) 22.0 U/L 0.0-46 .0 Not Available [facility] [address] [facility] 1, [place], [address], 07/12/2024 15:57:00 07/12/19 25 07/12/2024 CMP (FEMA LE) altv (SGPT) 25.0 U/L 13.0-6 9.0 normal Not Available [facility] [address] [facility] 1, [place], [address], 07/12/2024 15:57:00 07/12/19 25 07/12/2024 CMP (FEMA LE) A/G ratio 1.6 ratio Not Available [facility] [address] [facility] 1, [place], [address], 07/12/2024 15:57:00 07/12/19 25 07/12/2024 CMP (FEMA LE) ALP phos 75.0 U/L 30.0-1 40.0 normal Not Available [facility] [address] [facility] 1, [place], [address], 07/12/2024 15:57:00 07/12/19 25 07/12/2024 CMP (FEMA LE) calcium 10.2 mg/dL 8.4-10 .5 Not Available [facility] [address] [facility] 1, [place], [address], 07/12/2024 15:57:00 07/12/19 25 07/12/2024 CMP (FEMA LE) sodium 138.0 mmol/ L 136.0- 145.0 Not Available [facility] [address] [facility] 1, [place], [address], 07/12/2024 15:57:00 07/12/19 25 07/12/2024 CMP (FEMA LE) potassium 4.5 mmol/ L 3.5-5. 1 Not Available [facility] [address] [facility] 1, [place], [address], 07/12/2024 15:57:00 07/12/19 25 07/12/2024 CMP (FEMA LE) chloride 102.0 mmol/ L 98.0-1 10.0 normal Not Available [facility] [address] [facility] 1, [place], [address], 07/12/2024 15:57:00 07/12/19 25 07/12/2024 CMP (FEMA LE) C02 25.0 mmol/ L 22.0-3 1.0 Not Available [facility] [address] [facility] 1, [place], [address], 07/12/2024 15:57:00 07/12/19 25 07/12/2024 CMP (FEMA LE) anion gap 11.0 calc Not Available [facility] [address] [facility] 1, [place], [address], 07/12/2024 15:57:00 07/12/19 25 07/12/2024 CMP (FEMA LE) osmolality 286.9 calc Not Available [facility] [address] [facility] 1, [place], [address], 07/12/2024 15:57:00 07/12/19 25 07/12/2024 TSH TSH 1.46 uIU/m L 0.49-3 .82 Not Available [facility] [address] [facility] 1, [place], [address], 07/12/2024 16:32:29 07/12/19 25 07/14/2024 PRIYANKA C DISEA SE COMPR EHENS CHARLES PANEL interpretati on No serol ogica l evide nce of priyanka c disea se. tTG IgA may tiffanie lize in indiv idual s with priyanka c disea se who maint ain a glute n-vicki e diet. Consi sorin HLA DQ2 and DQ8 testi ng to rule out priyanka c disea se. Priyanka c disea se is extre sonny rare in the absen ce of DQ2 or DQ8. Not Available [employer] [facility] [id number], [place], [address], 07/14/2024 16:23:26 07/12/19 25 07/14/2024 PRIYANKA C DISEA SE COMPR EHENS CHARLES PANEL tissue transglutami nase Ab, IgA <1.0 U/mL Value Inter preta tion ----- ----- ----- ---- <15.0 Antib cr not detec amadeo > or = 15.0 Antib cr detec amadeo Not Available [address] [facility] [address] [place], [address], 07/14/2024 16:23:26 07/12/19 25 07/14/2024 PRIYANKA C DISEA SE COMPR EHENS CHARLES PANEL immunoglobul in A 93 mg/dL 70-320 Not Available [address], [address], 07/14/2024 16:23:26 07/12/19 25 07/14/2024 IMMUN OGLOB ULIN E immunoglobul in E 30 kU/L <or=11 4 normal Not Available [address], [address], 07/14/2024 16:23:28 07/12/19 25 07/14/2024 T4, FREE T4, free 1.2 NG/dL 0.8-1. 8 normal Not Available [address], [address], 07/14/2024 16:23:29 05/19/20 24 05/06/2024 colon oscop y proce dure (PROC ) No observ ation record ed. [address] , [place], [address], 05/20/2024 11:44:51 05/19/20 24 05/06/2024 upper endos copy proce dure (EGD) (PROC ) No observ ation record ed. [address] , [place], [address], 05/20/2024 11:44:52 Result Notes None recorded. Problems Name Problem SNOMED Code Status Onset Date Resolution Date Notes Provider Name and Address Organization Details Recorded Time Total colonosc opy Completed 201904/19/2020 Colonosco py - Status is Inactive; 0 11:02AM by Ginna Roper LPN, Jose n/Heriberto m; Promoted; acuity set as *; Not Available [facility] 3 03:14:50 Malrotat ion of colon 5839617 Active 2023 rerouting of intestina l malrotati on GINNA cid [facility] 4 10:11:10 [facility] l hyperten delia 13320049 Active 2023 GINNA cid [facility] 4 10:12:16 Trigemin al neuralgi a 45775913 Active 2023 Stephy cid [facility] 4 10:05:55 Cerebrov ascular disease 76218559 Active 2023 GINNA cid [facility] 5 12:21:03 Iron deficien cy 18232597 Active 2023 [facility], [facility] 4 15:13:54 Hyperlip idemia 32999205 Active 2024 GINNA cid [facility] 5 12:22:03 Acute sinusiti s 00841179 Active 2024 GINNA cid [facility] 5 13:22:36 Problem Notes None recorded. Procedures Surgical History Date Name Laterality Status Provider Name and Address Organization Details Recorded Time 2023 colonoscopy completed GINNA ROPER [facility] 4 11:43:24 2023 esophagogastroduodenoscopy completed PARUL ROPER [facility] 4 11:44:28 2022 Joint Inj Kenalog- Shoulder, Hip, Knee completed Huy Cobos MD [address] [place] [address], [phone] , [facility] 3 14:15:32 2020 primary fusion of cervical spine completed [facility] 4 10:09:27 2007 Colonoscopy completed [facility] 4 10:10:35 Hysterectomy completed [facility] 4 10:08:20 Imaging Results None recorded. Procedure Notes None recorded. Medical Equipment None Reported. Allergies Allergen ID Allergen Name Allergen Category Reaction Reaction Severity Criticality Documentation Date Start Date Code Code System Note Provider Name and Address Organization Details Recorded Time 50202 Effexor medicatio n other Not available Not available 12/28/2022 09261 2 RxNorm React ion: didn' t feel well; Comme nt: Recor ded 11/08 1:40P M by Megea n Frazi er, Offic e Visit ; Promo amadeo; Signi fican ce: *; Reaso n: Drug aller gy; ; [facility] 3 12:14:46 13655 codeine sulfate medicatio n Not available Not available Not available 12/28/2022 36435 RxNorm Comme nt: Recor ded 11/08 1:40P M by Megea n Frazi er, Offic e Visit ; Promo amadeo; Signi fican ce: *; Reaso n: Drug aller gy; ; [facility] 3 12:14:51 45491 penicilli n V potassium medicatio n Not available Not available Not available 12/28/202223499 5 RxNorm Comme nt: Recor ded 11/08 1:40P M by Megea n Frazi er, Offic e Visit ; Promo amadeo; Signi fican ce: *; Reaso n: Drug aller gy; ; [facility] 3 12:14:40 4780 Product containin g penicilli n (product) medicatio n Not available Not available Not available 11/25/2022 84955 8001 SNOMED Stephy Ty [facility] 3 14:03:36 4781 codeine medicatio n Not available Not available Not available 11/25/2022 2670 RxNorm Stephy Ty [facility] 3 14:03:44 4782 Effexor medicatio n Not available Not available Not available 11/25/2022 75965 2 RxNorm did not feel well Stephy Melony [facility] 3 14:05:41 4783 Tamiflu medicatio n vomiting Not available Not available 11/25/2022 95520 7 RxNorm Stephy Ty [facility] 3 14:05:22 Medications Name Sig Start Date Stop Date Status Note LastModified by Organization Details LastModified Time budesonid e nasal ADD 1ML INTO NEILMED BOTTLE WITH SALINE PACKET AND DISTILLE D WATER; RINSE 1/2 BOTTLE THROUGH EACH NOSTRIL TWICE DAILY 12/15 completed Not Available Not Available Not Available celecoxib 200 mg capsule TAKE ONE CAPSULE BY MOUTH EVERY DAY with breakfas t 11/25 completed Not Available Not Available Not Available doxycycli ne hyclate 100 mg capsule take 1 capsule BY MOUTH TWICE DAILY FOR 10 DAYS active Not Available Not Available No t Available Vitamin C 500 mg tablet TAKE 1 TABLET BY MOUTH EVERY DAY WITH MEAL active Not Available Not Available No t Available cetirizin e 10 mg tablet Take 1 tablet every day by oral route. active Not Available Not Available No t Available azithromy lina 250 mg tablet TAKE 2 TABLETS BY MOUTH TODAY, THEN TAKE 1 TABLET DAILY ON DAYS 2-5 11/20 completed Not Available Not Available Not Available metoprolo l succinate ER 50 mg tablet,ex tended release 24 hr TAKE ONE TABLET BY MOUTH EVERY DAY FOR HIGH BLOOD PRESSURE active Not Available Not Available No t Available sumatript an 100 mg tablet TAKE 1 TABLET BY MOUTH AT ONSET OF HEADACHE , MAY TAKE 1 EXTRA IF NO RELIEF IN 2 HOURS MAX OF 2 TABLETS PER DAY active Not Available Not Available No t Available hydrocodo ne 5 mg-acetam inophen 325 mg tablet TAKE 1 TABLET BY MOUTH EVERY 6 TO 8 HOURS NEEDED FOR PAIN 11/25 completed Not Available Not Available Not Available promethaz ine 25 mg rectal supposito ry insert ONE supposit ory EVERY 6 HOURS FOR 5 DAYS as needed for nausea/v omiting 11/25 completed Not Available Not Available Not Available ondansetr on HCl 4 mg tablet TAKE 1 TABLET BY MOUTH EVERY 6 HOURS active Not Available Not Available No t Available prednison e 20 mg tablet Take 2 tablets every day by oral route for 5 days. 01/04 completed Not Available Not Available Not Available clindamyc in HCl 150 mg capsule TAKE 3 CAPSULES BY MOUTH THREE TIMES DAILY FOR SEVEN DAYS 12/31 completed Not Available Not Available Not Available hydrocodo ne 10 mg-acetam inophen 325 mg tablet TAKE 1 TABLET BY MOUTH EVERY 6 HOURS NEEDED MAX OF FOUR PER DAY 01/09 completed down to 7.5mg on 11/25/22 Not Available Not Available Not Available aspirin 81 mg tablet,de layed release TAKE 1 TABLET BY MOUTH EVERY DAY FOR 90 DAYS active Not Available Not Available No t Available cefadroxi l 500 mg capsule Take 1 capsule twice a day by oral route for 10 days. 01/01 completed Not Available Not Available Not Available oxycodone -acetamin ophen 5 mg-325 mg tablet TAKE ONE TABLET BY MOUTH EVERY 6 TO 8 HOURS when necessar y pain 11/25 completed Not Available Not Available Not Available hydromorp christi 2 mg tablet TAKE ONE TABLET BY MOUTH EVERY 6 HOURS FOR 7 DAYS as needed for moderate pain 11/25 completed Not Available Not Available Not Available hydrocodo ne 7.5 mg-acetam inophen 325 mg tablet TAKE 1 TABLET BY MOUTH EVERY 6 HOURS NEEDED MAX OF FOUR PER DAY active Not Available Not Available No t Available pantopraz ole 40 mg tablet,de layed release TAKE 1 TABLET BY MOUTH EVERY DAY 2024 active Not Available Not Available Not Avai lable nicotine 21 mg/24 hr daily transderm al patch apply and CHANGE ONE PATCH EVERY DAY 11/25 completed Not Available Not Available Not Available gabapenti n 300 mg capsule take 1 capsule BY MOUTH THREE TIMES DAILY active Not Available Not Available No t Available budesonid e 0.5 mg/2 mL suspensio n for nebulizat ion active Not Available Not Available Not Available lisinopri l 10 mg-hydroc hlorothia zide 12.5 mg tablet TAKE 1 TABLET BY MOUTH EVERY DAY 2024 active Not Available Not Available Not Avai lable fluticaso ne propionat e 50 mcg/actua tion nasal spray,nain pension daily 11/20 completed Recorded 09/06/19 9:44AM by Huy Cobos MD, Office Visit; Refill Quantity : 1; Inhalati on; Not Available Not Available Not Available rosuvasta tin 40 mg tablet TAKE 1 TABLET BY MOUTH EVERY DAY 2024 active Not Available Not Available Not Avai lable melatonin at bedtime 01/09 completed 0; Recorded 11/09/19 22 1:42PM by Rylan Chamberlain, Office Visit; Not Available Not Available Not Available Flonase active Not Available Not Avail able Not Available oxybutyni n chloride daily 01/09 completed Recorded 11/09/19 22 1:42PM by Rylan Chamberlain, Office Visit; Refill Quantity : 0; Not Available Not Available Not Available lisinopri l-hydroch lorothiaz halle daily 01/09 completed 436; Recorded 06/10/19 23 12:23PM by Ginna Roper LPN (Authori zed through Huy Cobos MD), Refill Request; Refill Quantity : 30; Tablet; Not Available Not Available Not Available Vitamin D daily 11/20 completed 0; Recorded 11/09/19 22 1:42PM by Rylan Chamberlain, Office Visit; Not Available Not Available Not Available metoprolo l succinate daily for high blood pressure 01/09 completed 436; Recorded 07/18/19 23 5:32PM by Ginna Roper LPN (Authori getachew through Huy Cobos MD), Refill Request; Refill Quantity : 90; Tablet; Not Available Not Available Not Available fiber 11/20 completed Not Available Not Available Not Available ondansetr on Q6 hours prn 01/09 completed DOC RM/CC; 9; Recorded 05/22/20 20 12:28PM by Bernie Stokes LPN (Authori getachew through Basim Lorenzana MD), Refill Request; Refill Quantity : 0; Not Available Not Available Not Available Excedrin prn 11/20 completed Not Available Not Available Not Available ferrous gluconate 324 mg (38 mg iron) tablet TAKE 1 TABLET BY MOUTH EVERY DAY with a meal active Not Available Not Available No t Available Eliquis 2.5 mg tablet take one tablet BY MOUTH TWICE DAILY FOR 30 DAYS 11/25 completed Not Available Not Available Not Available Emergen-C daily 11/20 completed 0; Recorded 11/09/19 22 1:42PM by Rylan Chamberlain, Office Visit; Not Available Not Available Not Available Vitals Date Recorded Body height Body mass index (BMI) Body weight Body temperature Heart rate Oxygen saturation Oxygen saturation in Arterial blood by Pulse oximetry Systolic And Diastolic Provider Name and Address Organization Details Last Updated DateTime 5 159.39 cm 28.9 kg/m2 45425.9 6 g 97.6 [degF] 95 /min 96 % 96 % 150/72 mm[Hg] GINNA ROPER [facility] 5 12:40:00 Date Recorded Body height Body mass index (BMI) Body weight Oxygen saturation Oxygen saturation in Arterial blood by Pulse oximetry Heart rate Respiratory rate Body temperature Systolic And Diastolic Provider Name and Address Organization Details Last Updated DateTime 5 159.39 cm 29.5 kg/m2 03229.7 4 g 96 % 96 % 86 /min 18 /min 98 [degF] 148/70 mm[Hg] Dana Maciel [facility] 5 13:13:31 Date Recorded Body height Body mass index (BMI) Body weight Body temperature Heart rate Oxygen saturation Oxygen saturation in Arterial blood by Pulse oximetry Systolic And Diastolic Provider Name and Address Organization Details Last Updated DateTime 5 159.39 cm 28.7 kg/m2 31588.3 7 g 97.7 [degF] 64 /min 96 % 96 % 138/76 mm[Hg] [facility] 5 12:46:37 Date Recorded Body height Body mass index (BMI) Body weight Oxygen saturation Oxygen saturation in Arterial blood by Pulse oximetry Heart rate Respiratory rate Systolic And Diastolic Provider Name and Address Organization Details Last Updated DateTime 4 159.39 cm 29.3 kg/m2 45735.2 g 98 % 98 % 71 /min 18 /min 140/92 mm[Hg] Pham Bates [facility] 4 11:58:48 Date Recorded Body height Body mass index (BMI) Body weight Body temperature Heart rate Oxygen saturation Oxygen saturation in Arterial blood by Pulse oximetry Systolic And Diastolic Provider Name and Address Organization Details Last Updated DateTime 4 159.39 cm 30 kg/m2 84030.5 2 g 97.6 [degF] 70 /min 97 % 97 % 144/86 mm[Hg] [facility] 4 11:41:08 Social History Question Answer Notes LastModified by Organizat ion Details LastModified Time Tobacco Smoking Status [facility] 11/21/2023 10:08:05 What Was The Date Of Your Most Recent Tobacco Screening? 12/15/2024 [email or web address] Information not available 12/15/2024 Sex: Unknown Functional Status Question Answer Note LastModified by Organization D etails LastModified Time Do you or have you ever used any other forms of tobacco or nicotine? No [email or web address] Information not available 11/21/2023 What is your level of alcohol consumption? None [email or web address] Information not available 11/21/2023 Do you or have you ever used any nicotine-free cigarettes, vape, or chewing tobacco? No [email or web address] Information not available 11/21/2023 Mental Status None recorded. Family History Relationship Description Onset Age of this Age Resolved Age Notes LastModified by Organization Details LastModified Time Mother Hypertensive disorder [email or web address] Not available 11/20 10:07:42 Father Hypertensive disorder [email or web address] Not available 11/20 10:07:42 Medical History No medical history recorded. Gynecological HistoryNo gynecological history recorded. Obstetrics History GPAL:G 0 P 0 0 0 0 Immunizations Vaccine Type Date Status Note Provider Nam e and Address Organization Details Recorded Time Td(adult) unspecified formulation 2 completed Not Available [facility] 02/13/2023 14:34:34 Pneumococcal conjugate PCV20, polysaccharide [id number] conjugate, adjuvant, PF 3 [facility] 12/04/2022 13:00:06 Influenza, MDCK, quadrivalent, PF 2 completed [facility] 11/25/2022 14:05:49 Influenza, MDCK, quadrivalent, PF 9 [facility] 11/25/2022 14:05:49 zoster recombinant 0 completed [facility] 11/25/2022 14:05:49 zoster recombinant 0 completed [facility] 11/25/2022 14:05:49 COVID-19, mRNA, LNP-S, PF, 100 mcg/0.5mL dose or 50 mcg/0.25mL dose 1 completed [facility] 11/25/2022 14:05:49 COVID-19, mRNA, LNP-S, PF, 100 mcg/0.5mL dose or 50 mcg/0.25mL dose 1 completed [facility] 11/25/2022 14:05:49 Influenza, split virus, trivalent, PF 6 completed Stephy Ty null, [facility] 11/25/2022 14:05:49 Influenza, adjuvanted, trivalent, PF 4 completed GINNA ROPER null, [facility] 07/06/2024 12:20:24 Influenza, adjuvanted, quadrivalent, PF 3 completed Huy Cobos MD [address] [place] [address], [phone], [facility] 03/05/2023 10:11:04 Past Encounters Encounter ID Performer Location Encounter Start Date Encounter Closed Date Diagnosis/Indication Diagnosis SNOMED-CT Code Diagnosis ICD10 Code Diagnosis IMO Codes Diagnosis Note [id number] Huy Cobos MD [facility] ([facility]) [address] [place] [phone] 5 11/25/2022 13:42:51 11/25/2022 19:26:59 Pain of right shoulder joint 1434193564 0978627 M25.511 Diarrhea 51451542 R19.7 [id number] Huy Cobos MD [facility] ([facility]) [address] [place] [phone] 5 12/04/2022 11:55:59 12/04/2022 16:13:27 Hyperlipidemia 46680710 E78.5 Glucose le tari outside reference range 039364684 R73.09 Screening mammography 24 922511 Z12.31 Screening for malignant neoplasm of colon 632951778 Z12.11 Administra tion of pneumococcal vaccine 79159834 Z23 [id number] Huy Cobos MD [facility] ([facility]) [address] [place] [phone] 5 01/09/2023 11:23:18 01/09/2023 13:01:08 Nausea 113353694 R11.0 will follow with her gluten free diet. [id number] Huy Cobos MD [facility] ([facility]) [address] [place] [phone] 5 02/13/2023 14:23:43 02/13/2023 16:35:38 Administration of influenza vaccine 28095490 Z23 [id number] ANSHUL VELA [facility] ([facility]) [address] [place] [phone] 5 05/12/2023 12:00:57 05/12/2023 15:44:16 Acute maxillary sinusitis 49546439 J01.00 Flu negative today. Patient refuses COVID testing. Discussed with patient that I do feel like this is viral and that antibiotic s will not help, however patient states several times that she needs antibiotic s as her sinus pain is worsening. Due to erythemato us and edematous nares, will start z-pack today. If no improvemen t in 5-7 days, should follow up with PCP. If severe pain, SOB, or chest pain occurs, should go to ED. Patient verbalizes understand ing. [id number] Huy Cobos MD [facility] ([facility]) [address] [place] [phone] 5 11/21/2023 10:03:28 11/21/2023 11:04:00 Acute sialoadenitis 461947157 K11.21 secretagog ues, warm compresses , hydrate better, d/c the anticholin ergics as discussed (is taking lots of benadryl for this)to er for imaging if worseningr eport any diarrheawa rned of risk of c. difficile. [id number] Huy Cobos MD [facility] ([facility]) [address] [place] [phone] 5 12/11/2023 11:20:18 12/11/2023 16:44:59 Acute sialoadenitis 670820582 K11.21 adenitis really seems to be improved but she is c/o trigeminal v1,2 distributi on burning now and left eye watering. Left trige jazmin neuralgia 5323761564 0863406 G50.0 [id number] Huy Cobos MD [facility] ([facility]) [address] [place] [id number] 5 01/01/2024 12:05:49 01/01/2024 15:52:50 Left trigeminal neuralgia 3011486462 8672642 G50.0 will see if ent will schedule her now that the mri is scheduled hopefully they can see her shortly after. Nausea 099499486 R11.0 will follow with her gluten free diet. [id number] Huy Cobos MD [facility] ([facility]) [address] [place] [id number] 5 01/23/2024 12:09:45 01/23/2024 14:04:13 Cerebrovascular disease 71962019 I67.9 Hyperlipidemia 32172779 E78.5 [id number] Huy Cobos MD [facility]) [address] [place] [phone] 5 03/17/2024 08:52:47 03/18/2024 11:50:13 Essential hypertension 23810530 I10 [id number] Huy Cobos MD [facility] ([facility]) [address] [place] [phone] 5 03/24/2024 11:01:02 03/24/2024 16:47:22 Active or passive immunization 436110481 Z23 Adult heal th examination 802477639 Z00.00 Microcytic anemia 597163 007 D50.9 no recent bloodwork to comparewil l need upper and lower endoscopy [id number] Juan La DO [facility] ([facility]) [address] [place] [id number] 5 04/07/2024 11:16:46 04/12/2024 10:24:11 Microcytic anemia 900834907 D50.9 Counseled on diagnosis, treatment options including medication s and possible side effects.I have reviewed and discussed colonoscop y and EGD. Discussed risks vs benefits including risk of infection and bleeding, perforatio n, possible need for surgery, reaction to medication s, and sever injury or . We discussed pt requiring sedation and possible general anesthesia . Pt agrees to proceed with Colonoscop y and EGD at [facility]. Preliminar y procedure date will be 04/22/24. [id number] Huy Cobos MD [facility] ([facility]) [address] [place] [address] 05/19/2024 11:27:07 05/19/2024 17:38:39 Iron deficiency anemia 59063095 D50.9 Chronic gastritis 826345 9 K29.50 [id number] Huy Cobos MD [facility] ([facility]) [address] [place] [id number] 5 07/06/2024 12:12:41 07/06/2024 16:42:33 Essential hypertension 41928266 I10 Hyperlipidemia 36477191 E78.5 Chronic di arrhea of unknown origin 34001256 K52.9 chronic anemia not responding to iron therapy and chronic diarrhea. i advised her on eliminatio n diet starting with eliminatin g lactose in all its forms and adding lactaid if/when needed. last hemoccult was pos. egd small intestine bx was negative.i cannot find that random colon bx was done aside from iron deficiency she would be a very good candidate to have ibs-d but other things need to be worked out.she has a good chance of having lactose intoleranc e. Chronic gastritis 370131 9 K29.50 [id number] IRENE JOE [facility] ([facility]) [address] [place] [phone] 5 12/15/2024 13:02:50 12/15/2024 15:47:58 Acute pansinusitis 7946724 J01.40 39867589 Discussed use of antibiotic . Take with food.May use Lenin's nasal inserts and also apply on chest. Push oral fluids. Consider nasal saline rinses and otc decongesta nt.Use tylenol/mo alis for moy. [id number] Huy Cobos MD [facility] ([facility]) [address] [place] [id number] 5 12/23/2024 12:29:41 12/23/2024 13:40:14 Acute maxillary sinusitis 06513345 J01.00 84102477 Health Concerns Section Related Observation LastModified by Organization Detai ls LastModified Time None Recorded Concern Status LastModified by Organization Details LastModified Time None Recorded Advance Directives Directive None Recorded Payers Insurance Date Sequence Insurance Name Policy Number Policy Mueller Covered Member ID Mueller Member ID Guarantor Name 12/15/2024 [place] - [facility] (MEDICARE) Christy Jane [id number] Christy Jane 12/15/2024 2 [place] Christy Jane [id number] Christy Jane 01/02/2025 1 [place] [id number] Amol Jane [id number] Christy Jane Notes Date Note Type Note Provider Name and Address Organization Details Recorded Time 04/07/2024 text/html Colonoscopy ScreeningReported by PatientColonoscopy ScreeningFor gi symptoms, patient reportsabdominal painbut reportsno diarrhea,no constipation,no recent change in bowel movements,no change in the stool,no color change in stool, andno rectal bleeding. For associated symptoms, patient reportsnormal appetite,no fever,no chills,no nausea, andno vomiting. For context, patient reportsno prior examination,no history of colon polyps, andno history of ulcerative colitis or crohn's disease. For family history, patient reportsno polypsandno colon cancer.ROS as noted in the HPI Plan at visit with Dr. Cobos on 03/24/24:Microcytic anemia -no recent bloodwork to comparewill need upper and lower ypozapjfaS98.9: Iron deficiency anemia, unspecifiedIRON + TIBC + FERRITIN, SERUMESR (ERYTHROCYTE SEDIMENTATION RATE), BLOODRETIC COUNT, BLOODFOLATE, SERUMFECAL OCCULT BLOOD, IMMUNOASSAY, STOOLVITAMIN B12, SERUMUPPER ENDOSCOPY (EGD) WITH DIAGNOSTIC COLONOSCOPY (PROC The patient presents today at the request of Dr. Cobos for evaluation and discussion of colonoscopy and EGD to investigate Microcytic Anemia. Lab 03/24/24:Hgb 10.6Iron 19FOB + She has had abd pain and since taking iron supplement her stools are darker. She has malrotation of the intestines and d/t this she has had multiple surgeries, approximately 7-9 surgeries for this, last approx 15 years ago. Surgeon was Dr. Beach in [place]. She has seen Dr. Larsen, however he's never had to open me up . She has been in [facility] with Dr. Larsen in the past, 2-3 times, last approx 10 years ago, reports, they had me prepped and ready for surgery but they gave me so much Morphine they untwisted themselves and didn't have to open me up .She has not had any Colectomy. She is leary on doing Colonoscopy d/t this history, is concerned to do the prep and clear her colon, afraid it will result in her intestines rotating. She also c/o reflux sx for years, but the last several days have been worse. She woke 3 days ago with burning in her throat and acid reflux. She describes a burning in her throat that she has never felt before. She hadn't eaten anything tomato based, unsure what may have flared this.Taking Pantoprazole 40mg daily. The patient denies any recent, persistent diarrhea, persistent constipation, bloody or dark tarry stools, or mucusy stools. Last Colon Cancer screenin years ago, 2005 Problems with anesthesia in the past: NONE Family History of Colon cancers: NONE Blood Thinners: ASA 81mg daily Co-morbidities: HTN, Cerebrovascular disease Juan La DO [address] [place] [address], [id number], [facility] 04/10/2024 12:12:53 05/19/2024 text/html Generic HPI TemplateReported by PatientPt is here today to go over the results of her scope and biopsy during EGD. She had her scope on 05/06/24. test results reviewed with her in full. and all questions were answered to her satisfaction. ROS as noted in the HPI Pt has seen Dr. Priest and she is going to be doing a sinus flush. Huy Cobos MD [address] [place] [address], [phone], [facility] 05/19/2024 12:40:15 07/06/2024 text/html DiarrheaReported by PatientHPIFor quality, patient reportswateryandloose. For aggravating factors, patient reportslactoseandwheat/ gluten. For associated symptoms, patient reportsmucus in stoolandbloating. For onset/timing, patient reportsgradual onset. For duration, (patient reports this has been happening in episodes. she says that about every 2 weeks she is having episodes that will last up to 1 week at a time.).She has had a recent colonoscopy and EGD and all were ok. no bloody stoolsometimes mucoid diarrhea. for 3 days consecutive out of 3 weeks she has watery stool without blood once or twice per day. there might be mucus she is not sure. Huy Cobos MD [address] [place] [address], [id number], [facility] 07/06/2024 13:17:11 12/15/2024 text/html Sinusitis/Allerg yReport ed by PatientROS as noted in the HPI walk in patientpatient is here today for left side sinus pressure, watery left eye, and sinus drainage. started last 1 week. States she has a hx of recurrent sinus infections. Was evaluated by Dr. Priest. Uses a daily medicated sinus rinse that has stopped the recurrent infections. No antibiotics for a sinus infection in over 2 years. IRENE JOE [address] [place], [phone], [facility] 12/15/2024 14:18:27 12/23/2024 text/html Sinusitis/Allerg yReport ed by PatientHPIFor quality, patient reportsburning (improved)andwatering. For associated symptoms, patient reportsnasal discharge from left nostrils.Pt has had sinus sx for about 16 days. She had a burning feeling in her sinuses. She has left sided ear and throat pain. She has been taking flonase, budesonide, zyrtec, and cefadroxil. She is on day 10 of her antibiotics, and the only improvement is no more pain in her sinuses. She is fatigued from life stress right now.ROS as noted in the HPI she is on aggressiv tx from her ent for allergic rhinitis Huy Cobos MD [address] [place] [address], [phone], [facility] 12/23/2024 13:26:54 OBGyn Episode No OBEpisode recorded.
--- OUTSIDE RECORDS SUMMARY | 2025-03-06 05:46 | XMS_ITS | Encounter Summary ---
Author Organization [facility] Address [address] [place] [address] Care Team Providers Care Supervisor Inspection Department Name Role Phone Mauro Soliman MD Primary Care Provider [phone]- [phone] Encounter Details Date Type Department Care Team (Late st Contact Info) Description 11/15/2004 Outpatient Historical [facility] [address] [place] [id number] Social History Tobacco Use Types Packs/Day Years Used Date Smoking Tobacco: Never Assessed Comments Unknown Sex and Gender Information Value Date Recorded Sex Assigned at Not on file 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
--- OUTSIDE RECORDS SUMMARY | 2025-03-06 05:46 | XMS_ITS | Encounter Summary ---
Author Organization [employer] [facility] Address [address] [place] [address] Care Team Providers Care Hearing Aid Technician Name Role Phone Mauro Soliman MD Primary Care Provider [phone]- [phone] Encounter Details Date Type Department Care Team (Latest Contact Info) Description 12/27/2002 Outpatient Historical [facility] [address] 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
--- OUTSIDE RECORDS SUMMARY | 2025-03-06 05:46 | XMS_ITS | Encounter Summary ---
Author Organization [employer] [facility] Address [address] [place] [address] Care Team Providers Care Log Processor Operator Name Role Phone Mauro Soliman MD Primary Care Provider [phone]- [phone] Encounter Details Date Type Department Care Team (Latest Contact Info) Description 01/20/2003 Outpatient Historical [facility] Cliff Beach MD [address] [address] [facility] OTHER SPECIFIED (Primary Dx) Social History Tobacco Use Types Packs/Day Years Used Date Smoking Tobacco: Never Assessed Comments Unknown Sex and Gender Information Value Date Recorded Sex Assigned at Not on file 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
--- OUTSIDE RECORDS SUMMARY | 2025-03-06 05:46 | XMS_ITS | Patient Health Record ---
Author Organization [facility] Address [address] [place] [address] Care Team Providers Care [employer] We[employer] Name Role Phone Huy Cobos MD Primary Care Provider UnavailJaimie Cordero Unavailable [phone] Migration, Provider Unavailable Unavailable Gastroenterology, [facility] Unavailable [phone] Lyle Duckworth Unavailable [phone] Allergies Allergen (clinical drug ingredient) Drug/Non Drug Allergy documented on EMR Reaction Allergy Type Onset Date Status codeine Codeine , Drug Allergy Active Results Component Value Reference Range Flag Notes zzzUrine Drug Screen (confir mation by instrument) - [id number] Reviewed date:06/24/2024 11:23:48 AM Interpretation: Performing Lab: Notes/Report: Urine Drug Screen (cup read) - [id number] Reviewed date:10/13/2024 04:05:42 PM Interpretation: Performing Lab: Notes/Report: OXY + Urine Confirmation Panel (in strument) - [id number] Reviewed date:10/18/2024 02:43:44 PM Interpretation: Performing Lab: Notes/Report: 6-Acetylmorphine 0 <6 ng/mL N This jhon t was developed and its performance characteristics determined by [facility]. It has not been cleared or approved by the U.S. Food and Drug Administration. 7-Aminoclonazepam 0 <60 ng/mL N This te st was developed and its performance characteristics determined by [facility]. It has not been cleared or approved by the U.S. Food and Drug Administration. Alprazolam 0 <60 ng/mL N This test was developed and its performance characteristics determined by [facility]. It has not been cleared or approved by the U.S. Food and Drug Administration. Amphetamine 0 <75 ng/mL N This test was developed and its performance characteristics determined by [facility]. It has not been cleared or approved by the U.S. Food and Drug Administration. aOH-Alprazolam 0 <60 ng/mL N This test was developed and its performance characteristics determined by [facility]. It has not been cleared or approved by the U.S. Food and Drug Administration. Buprenorphine 0.0 <7.5 ng/mL N This test w as developed and its performance characteristics determined by [facility]. It has not been cleared or approved by the U.S. Food and Drug Administration. Norbuprenorphine 0.0 <37.5 ng/mL N This te st was developed and its performance characteristics determined by [facility]. It has not been cleared or approved by the U.S. Food and Drug Administration. Carisoprodol 0 <75 ng/mL N This test wa s developed and its performance characteristics determined by [facility]. It has not been cleared or approved by the U.S. Food and Drug Administration. Codeine 0 <75 ng/mL N This test was developed and its performance characteristics determined by [facility]. It has not been cleared or approved by the U.S. Food and Drug Administration. EDDP 0 <75 ng/mL N This test was developed and its performance characteristics determined by [facility]. It has not been cleared or approved by the U.S. Food and Drug Administration. Fentanyl 0 <6 ng/mL N This test was developed and its performance characteristics determined by [facility]. It has not been cleared or approved by the U.S. Food and Drug Administration. Hydrocodone >5000 <75 ng/mL > This test was developed and its performance characteristics determined by [facility]. It has not been cleared or approved by the U.S. Food and Drug Administration. Hydromorphone 490 <75 ng/mL H This test w as developed and its performance characteristics determined by [facility]. It has not been cleared or approved by the U.S. Food and Drug Administration. Lorazepam 0 <60 ng/mL N This test was developed and its performance characteristics determined by [facility]. It has not been cleared or approved by the U.S. Food and Drug Administration. MDMA 0 <75 ng/mL N This test was developed and its performance characteristics determined by [facility]. It has not been cleared or approved by the U.S. Food and Drug Administration. Meperidine 0.0 <37.5 ng/mL N This test was developed and its performance characteristics determined by [facility]. It has not been cleared or approved by the U.S. Food and Drug Administration. Meprobamate 0 <75 ng/mL N This test was developed and its performance characteristics determined by [facility]. It has not been cleared or approved by the U.S. Food and Drug Administration. Methamphetamine 0 <75 ng/mL N This test was developed and its performance characteristics determined by [facility]. It has not been cleared or approved by the U.S. Food and Drug Administration. Methadone 0 <75 ng/mL N This test was developed and its performance characteristics determined by [facility]. It has not been cleared or approved by the U.S. Food and Drug Administration. Morphine 0 <75 ng/mL N This test was developed and its performance characteristics determined by [facility]. It has not been cleared or approved by the U.S. Food and Drug Administration. Nordiazepam 0 <60 ng/mL N This test was developed and its performance characteristics determined by [facility]. It has not been cleared or approved by the U.S. Food and Drug Administration. Norfentanyl 0 <6 ng/mL N This test was developed and its performance characteristics determined by [facility]. It has not been cleared or approved by the U.S. Food and Drug Administration. Normeperidine 0.0 <37.5 ng/mL N This test was developed and its performance characteristics determined by [facility]. It has not been cleared or approved by the U.S. Food and Drug Administration. O-desmethyltramadol 0 <75 ng/mL N This test was developed and its performance characteristics determined by [facility]. It has not been cleared or approved by the U.S. Food and Drug Administration. Oxazepam 0 <60 ng/mL N This test was developed and its performance characteristics determined by [facility]. It has not been cleared or approved by the U.S. Food and Drug Administration. Oxycodone 0.0 <37.5 ng/mL N This test was developed and its performance characteristics determined by [facility]. It has not been cleared or approved by the U.S. Food and Drug Administration. Oxymorphone 0 <75 ng/mL N This test was developed and its performance characteristics determined by [facility]. It has not been cleared or approved by the U.S. Food and Drug Administration. Phencyclidine 0.0 <7.5 ng/mL N This test w as developed and its performance characteristics determined by [facility]. It has not been cleared or approved by the U.S. Food and Drug Administration. Tapentadol 0.0 <37.5 ng/mL N This test was developed and its performance characteristics determined by [facility]. It has not been cleared or approved by the U.S. Food and Drug Administration. Temazepam 0 <60 ng/mL N This test was developed and its performance characteristics determined by [facility]. It has not been cleared or approved by the U.S. Food and Drug Administration. Tramadol 0 <75 ng/mL N This test was developed and its performance characteristics determined by [facility]. It has not been cleared or approved by the U.S. Food and Drug Administration. Norhydrocodone 1579 <75 ng/mL H This test was developed and its performance characteristics determined by [facility]. It has not been cleared or approved by the U.S. Food and Drug Administration. Noroxycodone 0 <38 ng/mL N This test wa s developed and its performance characteristics determined by [facility]. It has not been cleared or approved by the U.S. Food and Drug Administration. Pregabalin 0 <225 ng/mL N This test was developed and its performance characteristics determined by [facility]. It has not been cleared or approved by the U.S. Food and Drug Administration. Gabapentin >36283 <225 ng/mL > This test was developed and its performance characteristics determined by [facility]. It has not been cleared or approved by the U.S. Food and Drug Administration. Benzoylecgonine 0.0 <37.5 ng/mL N This jhon t was developed and its performance characteristics determined by [facility]. It has not been cleared or approved by the U.S. Food and Drug Administration. 4-Hydroxy Xylazine 14 <25 ng/mL N This t est was developed and its performance characteristics determined by [facility]. It has not been cleared or approved by the U.S. Food and Drug Administration. Tox Results Reviewed date:02/22/2025 01:26:30 PM Interpretation: Performing Lab: Notes/Report: Tox Results Reviewed date:10/20/2024 01:59:34 PM Interpretation: Performing Lab: Notes/Report: Urine Confirmation Panel (in strument) - [id number] Reviewed date:02/22/2025 01:12:55 PM Interpretation: Performing Lab: Notes/Report: 6-Acetylmorphine 0 <6 ng/mL N This jhon t was developed and its performance characteristics determined by [facility]. It has not been cleared or approved by the U.S. Food and Drug Administration. 7-Aminoclonazepam 0 <60 ng/mL N This te st was developed and its performance characteristics determined by [facility]. It has not been cleared or approved by the U.S. Food and Drug Administration. Alprazolam 0 <60 ng/mL N This test was developed and its performance characteristics determined by [facility]. It has not been cleared or approved by the U.S. Food and Drug Administration. Amphetamine 0 <75 ng/mL N This test was developed and its performance characteristics determined by [facility]. It has not been cleared or approved by the U.S. Food and Drug Administration. aOH-Alprazolam 0 <60 ng/mL N This test was developed and its performance characteristics determined by [facility]. It has not been cleared or approved by the U.S. Food and Drug Administration. Buprenorphine 0.0 <7.5 ng/mL N This test w as developed and its performance characteristics determined by [facility]. It has not been cleared or approved by the U.S. Food and Drug Administration. Norbuprenorphine 0.0 <37.5 ng/mL N This te st was developed and its performance characteristics determined by [facility]. It has not been cleared or approved by the U.S. Food and Drug Administration. Carisoprodol 0 <75 ng/mL N This test wa s developed and its performance characteristics determined by [facility]. It has not been cleared or approved by the U.S. Food and Drug Administration. Codeine 0 <75 ng/mL N This test was developed and its performance characteristics determined by [facility]. It has not been cleared or approved by the U.S. Food and Drug Administration. EDDP 0 <75 ng/mL N This test was developed and its performance characteristics determined by [facility]. It has not been cleared or approved by the U.S. Food and Drug Administration. Fentanyl 0 <6 ng/mL N This test was developed and its performance characteristics determined by [facility]. It has not been cleared or approved by the U.S. Food and Drug Administration. Hydrocodone 1070 <75 ng/mL H This test was developed and its performance characteristics determined by [facility]. It has not been cleared or approved by the U.S. Food and Drug Administration. Hydromorphone 231 <75 ng/mL H This test w as developed and its performance characteristics determined by [facility]. It has not been cleared or approved by the U.S. Food and Drug Administration. Lorazepam 0 <60 ng/mL N This test was developed and its performance characteristics determined by [facility]. It has not been cleared or approved by the U.S. Food and Drug Administration. MDMA 0 <75 ng/mL N This test was developed and its performance characteristics determined by [facility]. It has not been cleared or approved by the U.S. Food and Drug Administration. Meperidine 0.0 <37.5 ng/mL N This test was developed and its performance characteristics determined by [facility]. It has not been cleared or approved by the U.S. Food and Drug Administration. Meprobamate 0 <75 ng/mL N This test was developed and its performance characteristics determined by [facility]. It has not been cleared or approved by the U.S. Food and Drug Administration. Methamphetamine 0 <75 ng/mL N This test was developed and its performance characteristics determined by [facility]. It has not been cleared or approved by the U.S. Food and Drug Administration. Methadone 0 <75 ng/mL N This test was developed and its performance characteristics determined by [facility]. It has not been cleared or approved by the U.S. Food and Drug Administration. Morphine 0 <75 ng/mL N This test was developed and its performance characteristics determined by [facility]. It has not been cleared or approved by the U.S. Food and Drug Administration. Nordiazepam 0 <60 ng/mL N This test was developed and its performance characteristics determined by [facility]. It has not been cleared or approved by the U.S. Food and Drug Administration. Norfentanyl 0 <6 ng/mL N This test was developed and its performance characteristics determined by [facility]. It has not been cleared or approved by the U.S. Food and Drug Administration. Normeperidine 0.0 <37.5 ng/mL N This test was developed and its performance characteristics determined by [facility]. It has not been cleared or approved by the U.S. Food and Drug Administration. O-desmethyltramadol 0 <75 ng/mL N This test was developed and its performance characteristics determined by [facility]. It has not been cleared or approved by the U.S. Food and Drug Administration. Oxazepam 0 <60 ng/mL N This test was developed and its performance characteristics determined by [facility]. It has not been cleared or approved by the U.S. Food and Drug Administration. Oxycodone 0.0 <37.5 ng/mL N This test was developed and its performance characteristics determined by [facility]. It has not been cleared or approved by the U.S. Food and Drug Administration. Oxymorphone 0 <75 ng/mL N This test was developed and its performance characteristics determined by [facility]. It has not been cleared or approved by the U.S. Food and Drug Administration. Phencyclidine 0.0 <7.5 ng/mL N This test w as developed and its performance characteristics determined by [facility]. It has not been cleared or approved by the U.S. Food and Drug Administration. Tapentadol 0.0 <37.5 ng/mL N This test was developed and its performance characteristics determined by [facility]. It has not been cleared or approved by the U.S. Food and Drug Administration. Temazepam 0 <60 ng/mL N This test was developed and its performance characteristics determined by [facility]. It has not been cleared or approved by the U.S. Food and Drug Administration. Tramadol 0 <75 ng/mL N This test was developed and its performance characteristics determined by [facility]. It has not been cleared or approved by the U.S. Food and Drug Administration. Norhydrocodone 3082 <75 ng/mL H This test was developed and its performance characteristics determined by [facility]. It has not been cleared or approved by the U.S. Food and Drug Administration. Noroxycodone 0 <38 ng/mL N This test wa s developed and its performance characteristics determined by [facility]. It has not been cleared or approved by the U.S. Food and Drug Administration. Pregabalin 0 <225 ng/mL N This test was developed and its performance characteristics determined by [facility]. It has not been cleared or approved by the U.S. Food and Drug Administration. Gabapentin 0 <225 ng/mL N This test was developed and its performance characteristics determined by [facility]. It has not been cleared or approved by the U.S. Food and Drug Administration. Benzoylecgonine 0.0 <37.5 ng/mL N This jhon t was developed and its performance characteristics determined by [facility]. It has not been cleared or approved by the U.S. Food and Drug Administration. 4-Hydroxy Xylazine 0 <25 ng/mL N This t est was developed and its performance characteristics determined by [facility]. It has not been cleared or approved by the U.S. Food and Drug Administration. Urine Drug Screen (cup read) - [id number] Reviewed date:02/17/2025 10:56:30 AM Interpretation: Performing Lab: Notes/Report: OPI + OXY + Reason For Referral No Information Medications Medication SIG (Take, Route, Frequency, Duration) Notes Start Date End Date Status HYDROcodone-Acetami nophen 7.5-325 MG Tablet 1 tablet Orally every 6 hrs; Duration: 30 days As needed not to exceed 4 per day Fill on 02/23/2025 02/21/2025 03/25/2025 Active HYDROcodone-Acetami nophen 7.5-325 MG Tablet 1 tablet Orally every 6 hrs; Duration: 30 days As needed not to exceed 4 per day Fill on 03/25/2025 02/21/2025 04/24/2025 Active Cetirizine HCl 10 MG Tablet 1 tablet Orally Once a day Active Budesonide (Nasal) A ctive Multivitamin Active Vitamin C Active Zofran 4mg 1 tablet PO Q 6H PRN *Reorder from [employer] for eRx and Interaction Alerts* Unknown Saline Nasal [place] 0.65 % Solution as directed Nasally Active Iron Active Vitamin E Vitamin E 10/23/2011 Unknown Estradiol 1 MG Oral Tablet Estradiol 1 MG Oral Tablet 12/10/2012 Unknown Gabapentin 300 mg Capsule take 1 capsule BY MOUTH THREE TIMES DAILY; Duration: 30 Not-Taking Sumatriptan 100 MG Oral Tablet Sumatriptan 100 MG Oral Tablet 11/28/2011 Unknown Social History Social History Additional Details Category Social Info Options Details Migrated Social History Migrated Social History Alcoholic beverages? - No, Applying for disability? - No, Currently on disability? - No, Drug or substance abuse? - No, exposure to toxins/poisonous substances at work - No, Involved in any legal proceedings or lawsuits? - No, Marital Status - , Nonprescription drug use? - No, Participation in detoxification or rehabilitation - No, Smoking - No, Smoking status (MU) - Never smoker, Working currently? - No Problems Problem Type SNOMED Code ICD Code Onset Dates Problem Status W/U Status Risk Notes Problem Chronic pain syndrome (287245366) Chronic pain syndrome (G89.4) Active confirmed Problem Lumbosacral spondylosis with radiculopathy (601451377) Lumbosacral spondylosis with radiculopathy (M47.27) Active confirmed Problem Cervical disc disorder (394013771) DDD (degenerative disc disease), cervical (M50.30) Active confirmed Problem Cervical spondylosis without myelopathy (683127343) Cervical spondylosis with radiculopathy (M47.22) Active confirmed Problem Abnormal gait (31042767) Abnormality of gait and mobility (R26.9) Active confirmed Problem Radiculopathy due to lumbar intervertebral disc disorder (446403819091177) Lumbar disc disease with radiculopathy (M51.16) Active confirmed Problem Allodynia (272256204) Allodynia (R20.8) Active confirmed Vital Signs Height-cm 160.02 cm 02/17/2025 Weight-kg 70.76 kg 02/17/2025 Height 63 in 02/17/2025 Weight 156 lbs 02/17/2025 BMI 27.63 kg/m2 02/17/2025 Procedures Procedure Date Ordered Date Performed Result Body Sit e Epidural, Lumbar/Sacral (Cau breana), w/ imaging guidance - 95172 11/11/2024 11/11/2024 N/A Encounters Encounter Location Date Provider Diagnosis [facility] [address] [place] [address] 04/14/2024 Lyle Duckworth Chronic pain syndrome G89.4 ; DDD (degenerative disc disease), cervical M50.30 ; Cervical spondylosis with radiculopathy M47.22 ; Lumbar disc disease with radiculopathy M51.16 ; Lumbosacral spondylosis with radiculopathy M47.27 ; Inflammation of sacroiliac joint M46.1 ; Trochanteric bursitis, left hip M70.62 ; Subdeltoid bursitis of right shoulder joint M75.51 ; Allodynia R20.8 ; Abnormality of gait and mobility R26.9 and terminal operator (current) use of opiate analgesic Z79.891 [facility] [address] [address] 06/16/2024 Lyle Duckworth Chronic pain syndrome G89.4 ; DDD (degenerative disc disease), cervical M50.30 ; Cervical spondylosis with radiculopathy M47.22 ; Lumbar disc disease with radiculopathy M51.16 ; Lumbosacral spondylosis with radiculopathy M47.27 ; Inflammation of sacroiliac joint M46.1 ; Subdeltoid bursitis of right shoulder joint M75.51 ; Trochanteric bursitis, left hip M70.62 ; Allodynia R20.8 ; Abnormality of gait and mobility R26.9 and penitentiary (current) use of opiate analgesic Z79.891 [facility] [address] [address] 08/18/2024 Lyle Duckworth Chronic pain syndrome G89.4 ; DDD (degenerative disc disease), cervical M50.30 ; Cervical spondylosis with radiculopathy M47.22 ; Lumbar disc disease with radiculopathy M51.16 ; Lumbosacral spondylosis with radiculopathy M47.27 ; Inflammation of sacroiliac joint M46.1 ; Subdeltoid bursitis of right shoulder joint M75.51 ; Trochanteric bursitis, left hip M70.62 ; Allodynia R20.8 ; Abnormality of gait and mobility R26.9 and terminal operator (current) use of opiate analgesic Z79.891 [facility] [address] [address] 10/13/2024 Lyle Duckworth Chronic pain syndrome G89.4 ; DDD (degenerative disc disease), cervical M50.30 ; Cervical spondylosis with radiculopathy M47.22 ; Lumbar disc disease with radiculopathy M51.16 ; Lumbosacral spondylosis with radiculopathy M47.27 ; Inflammation of sacroiliac joint M46.1 ; Subdeltoid bursitis of right shoulder joint M75.51 ; Trochanteric bursitis, left hip M70.62 ; Allodynia R20.8 ; Abnormality of gait and mobility R26.9 and penitentiary (current) use of opiate analgesic Z79.891 [facility] [address] [place] [address] 11/11/2024 Lyle Duckworth Lumbosacral spondylosis with radiculopathy M47.27 [facility] [address] [address] 12/22/2024 Lyle Duckworth Chronic pain syndrome G89.4 ; DDD (degenerative disc disease), cervical M50.30 ; Cervical spondylosis with radiculopathy M47.22 ; Lumbar disc disease with radiculopathy M51.16 ; Lumbosacral spondylosis with radiculopathy M47.27 ; Inflammation of sacroiliac joint M46.1 ; Subdeltoid bursitis of right shoulder joint M75.51 ; Trochanteric bursitis, left hip M70.62 ; Allodynia R20.8 ; Abnormality of gait and mobility R26.9 and penitentiary (current) use of opiate analgesic Z79.891 [facility] [address] [address] 02/17/2025 Jaimie Nunn Chronic pain syndrome G89.4 ; DDD (degenerative disc disease), cervical M50.30 ; Cervical spondylosis with radiculopathy M47.22 ; Lumbar disc disease with radiculopathy M51.16 ; Lumbosacral spondylosis with radiculopathy M47.27 ; Inflammation of sacroiliac joint M46.1 ; Subdeltoid bursitis of right shoulder joint M75.51 ; Trochanteric bursitis, left hip M70.62 ; Allodynia R20.8 ; Abnormality of gait and mobility R26.9 and penitentiary (current) use of opiate analgesic Z79.891 [facility] 0 0 03/27/2024 Provider Migration [facility] 0 0 03/28/2024 Provider Migration [facility] [address] [facility] [place] [address] 04/14/2024 Lyle Hayskristopher [facility] [address] [facility] [place] [address] 05/11/2024 Lyle Duckworth [facility] [address] [place] [address] 09/06/2024 [facility] [place] [address] [facility] [place] [address] 02/17/2025 Lyle Duckworth Cervical spondylosis with radiculopathy M47.22 Assessments Encounter Date Diagnosis (ICD Code) Assessment Notes Treatment Notes Treatment Clinical Notes Section Notes 12/22/2024 Chronic pain syndrome (ICD-10 - G89.4) I had a nice discussion with the patient today regarding her chronic pain issues. She says that the injection helped quite a bit with her radicular symptoms, but she still has some weakness in the right lower extremity. She's concerned about nerve damage, and she does have persistent numbness and some weakness in the right lower extremity, mainly in the L4-5 distribution, but it could have originated at the level of her hip. We will get an EMG/nerve conduction study to evaluate this further and bring her back in about 2 months to reassess. 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 So our hope is that it will improve the further she gets away from that. We will see her back in a couple of months to re-evaluate that as well. Obviously, if this begins to become more painful, she will come in sooner. 06/16/2024 Chronic pain syndrome (ICD-10 - G89.4) I had a nice visit with the patient today regarding her chronic pain issues. She's doing okay but she is unfortunately struggling with some continued GI issues and anemia. It sounds like they haven't identified exactly what the cause of the anemia is and are still working her up. She's taking a bunch of iron and supplements but she is obviously still fatigued. From a pain standpoint, she is going to work her way off of the gabapentin and we will continue her hydrocodone unchanged for now. We will see her back in a couple of months. 06/16/2024 DDD (degenerative disc disease), cervical (ICD-10 - M50.30) 08/18/2024 Chronic pain syndrome (ICD-10 - G89.4) I had a nice visit with the patient today regarding her chronic pain issues. She says she is doing much better, which I was pleased to hear. They still have not entirely figured out her anemia but she was told that she does have a gluten allergy, so she has been making some dietary changes. I did recommend that she increase her protein intake, specifically beef, so she's going to try and work on that. Otherwise, we will continue her hydrocodone unchanged but discontinue her gabapentin and plan to see her back in about 2 months. She is interested in repeat injections after she gets some other stuff taken care of, so we will hold off any other changes for now. 02/17/2025 Cervical spondylosis with radiculopathy (ICD-10 - M47.22) 02/17/2025 Chronic pain syndrome (ICD-10 - G89.4) I had a nice discussion with the patient today regarding her chronic pain complaints. She reports she still been having a lot of lower back pain and hip pain as well as radicular symptoms. She does have her EMG/NCV scheduled in a few weeks. She states her medication is helping relieve her pain some and allows her to function better overall. She does report she is been having some pain in her left knee but feels it is due to her gait being off. She denies any other changes since we last seen her any untoward side effects of the medication. I did discuss lifestyle modifications as well as a bowel regimen. She will continue her medication at present level and return to clinic in 2 months to monitor for treatment effectiveness and compliance. The patient continues with chronic pain requiring treatment to help restore function and improve quality of life. Risks of opioid therapy as well as interaction of opioids with alcohol, illicit drugs, muscle relaxers, and other sedative medications are reviewed briefly with patient again today. The patient has trialed all other reasonable treatment options and uses the medication to alleviate pain in order to remain active and rest with less pain. No clinically relevant medication side effects are noted. Last UDS and [place] UNDERGROUND DISTRIBUTION ENGINEER reviewed today. Patient is advised that best long-term goals include increased activity, core strengthening, proper weight management, coping strategies, avoidance of painful triggers, and targeted interventional therapy. We will see the patient for routine follow up in accordance with all clinic policies. We did remind patient today of current guidelines to decrease opioid when possible. We will continue to stress nonopioid treatment. RECOMMEND URINE TESTING TODAY Urine drug screening will be performed today to monitor compliance with opioid therapy or to serve as a baseline screen for a patient who may be a candidate for opioid therapy in the future, pending UDS results. We will monitor with in-office testing (rapid testing) today and review the results prior to dispensing prescription. All positive results will be sent for quantitative analysis to ensure accuracy and quantify amounts. Any expected positive results that return negative will also be sent for quantitative analysis. Any questionable read or any medication we cannot test for in the office confidently will be sent for quantitative analysis, as well. Patient has been made aware of this policy and agrees to abide by our urine testing policy. 10/13/2024 Chronic pain syndrome (ICD-10 - G89.4) I had a nice visit with the patient today regarding her chronic pain issues. Overall, she seems to be struggling a bit as she just lost her daughter who was 39 years-old, but struggled with some chronic medication issues. Certainly, this has been difficult for her, but she says she's making it through. At this point, she is going to have to do some things for her grandson's wedding that she wasn't anticipating because of the loss, but she's doing what she can. The medications remain effective and she's interested in repeating the LESI when able, so we can get that scheduled. We'll continue her medications unchanged and follow up with her thereafter. 04/14/2024 Chronic pain syndrome (ICD-10 - G89.4) I had a nice visit with the patient today regarding her chronic pain issues. Unfortunately, she has had some bleeding issues so she's going in for a colonoscopy of her upper GI next week, so we will see how that turns out. She is a little bit fearful of cancer, which is understandable but at this point we will just wait and see. She's tolerating the medications fine and she thinks that she will be able to cut down on the medications in the near future as well. We will continue those unchanged for now and see her back in a couple of months. 04/14/2024 DDD (degenerative disc disease), cervical (ICD-10 - M50.30) 11/11/2024 Lumbosacral spondylosis with radiculopathy (ICD-10 - M47.27) 04/14/2024 Cervical spondylosis with radiculopathy (ICD-10 - M47.22) 12/22/2024 DDD (degenerative disc disease), cervical (ICD-10 - M50.30) 10/13/2024 DDD (degenerative disc disease), cervical (ICD-10 - M50.30) 02/17/2025 DDD (degenerative disc disease), cervical (ICD-10 - M50.30) 06/16/2024 Cervical spondylosis with radiculopathy (ICD-10 - M47.22) 08/18/2024 DDD (degenerative disc disease), cervical (ICD-10 - M50.30) 08/18/2024 Cervical spondylosis with radiculopathy (ICD-10 - M47.22) 06/16/2024 Lumbar disc disease with radiculopathy (ICD-10 - M51.16) 02/17/2025 Cervical spondylosis with radiculopathy (ICD-10 - M47.22) 10/13/2024 Cervical spondylosis with radiculopathy (ICD-10 - M47.22) 12/22/2024 Cervical spondylosis with radiculopathy (ICD-10 - M47.22) 04/14/2024 Lumbar disc disease with radiculopathy (ICD-10 - M51.16) 04/14/2024 Lumbosacral spondylosis with radiculopathy (ICD-10 - M47.27) 10/13/2024 Lumbar disc disease with radiculopathy (ICD-10 - M51.16) 12/22/2024 Lumbar disc disease with radiculopathy (ICD-10 - M51.16) 02/17/2025 Lumbar disc disease with radiculopathy (ICD-10 - M51.16) 06/16/2024 Lumbosacral spondylosis with radiculopathy (ICD-10 - M47.27) 08/18/2024 Lumbar disc disease with radiculopathy (ICD-10 - M51.16) 06/16/2024 Inflammation of sacroiliac joint (ICD-10 - M46.1) 08/18/2024 Lumbosacral spondylosis with radiculopathy (ICD-10 - M47.27) 10/13/2024 Lumbosacral spondylosis with radiculopathy (ICD-10 - M47.27) RECOMMEND THERAPEUTIC LUMBAR EPIDURAL STEROID INJECTION, levels L5-S1 The patient reports overall 50% improvement in function and decrease in pain for greater than one month from previous diagnostic KRISTI. The patient also reports improvement in tolerance to activities which generally cause pain. Based on the results of previous diagnostic KRISTI, a therapeutic KRISTI is recommended. Expectation from a successful therapeutic epidural steroid injection is at least 50-70% relief of pain from baseline and evidence of improved function for at least six to eight weeks after delivery. The goal of epidural steroid injections is to reduce pain and inflammation, restoring range of motion and, thereby, facilitating progress in more active treatment programs, and avoiding surgery. The procedure and risks were discussed with the patient including but not limited to infection, bleeding, neurological complications, side effects from medications, no change in pain, worsening of pain, or even . We also discussed conservative options, surgical options, and medical management with patient as well. The patient indicates understanding and wishes to proceed with the recommended treatment approach. The patient was given written information about the procedure and all questions were answered. 02/17/2025 Lumbosacral spondylosis with radiculopathy (ICD-10 - M47.27) 04/14/2024 Inflammation of sacroiliac joint (ICD-10 - M46.1) 12/22/2024 Lumbosacral spondylosis with radiculopathy (ICD-10 - M47.27) 02/17/2025 Inflammation of sacroiliac joint (ICD-10 - M46.1) 10/13/2024 Inflammation of sacroiliac joint (ICD-10 - M46.1) 04/14/2024 Trochanteric bursitis, left hip (ICD-10 - M70.62) 12/22/2024 Inflammation of sacroiliac joint (ICD-10 - M46.1) 08/18/2024 Inflammation of sacroiliac joint (ICD-10 - M46.1) 06/16/2024 Subdeltoid bursitis of right shoulder joint (ICD-10 - M75.51) 08/18/2024 Subdeltoid bursitis of right shoulder joint (ICD-10 - M75.51) 02/17/2025 Subdeltoid bursitis of right shoulder joint (ICD-10 - M75.51) 10/13/2024 Subdeltoid bursitis of right shoulder joint (ICD-10 - M75.51) 04/14/2024 Subdeltoid bursitis of right shoulder joint (ICD-10 - M75.51) 12/22/2024 Subdeltoid bursitis of right shoulder joint (ICD-10 - M75.51) 06/16/2024 Trochanteric bursitis, left hip (ICD-10 - M70.62) 04/14/2024 Allodynia (ICD-10 - R20.8) 10/13/2024 Trochanteric bursitis, left hip (ICD-10 - M70.62) 02/17/2025 Trochanteric bursitis, left hip (ICD-10 - M70.62) 06/16/2024 Allodynia (ICD-10 - R20.8) 08/18/2024 Trochanteric bursitis, left hip (ICD-10 - M70.62) 12/22/2024 Trochanteric bursitis, left hip (ICD-10 - M70.62) 06/16/2024 Abnormality of gait and mobility (ICD-10 - R26.9) 08/18/2024 Allodynia (ICD-10 - R20.8) 02/17/2025 Allodynia (ICD-10 - R20.8) 04/14/2024 Abnormality of gait and mobility (ICD-10 - R26.9) 10/13/2024 Allodynia (ICD-10 - R20.8) 12/22/2024 Allodynia (ICD-10 - R20.8) 04/14/2024 penitentiary (current) use of opiate analgesic (ICD-10 - Z79.891) 12/22/2024 Abnormality of gait and mobility (ICD-10 - R26.9) 10/13/2024 Abnormality of gait and mobility (ICD-10 - R26.9) 02/17/2025 Abnormality of gait and mobility (ICD-10 - R26.9) 08/18/2024 Abnormality of gait and mobility (ICD-10 - R26.9) 06/16/2024 penitentiary (current) use of opiate analgesic (ICD-10 - Z79.891) 08/18/2024 terminal operator (current) use of opiate analgesic (ICD-10 - Z79.891) 02/17/2025 terminal operator (current) use of opiate analgesic (ICD-10 - Z79.891) 10/13/2024 penitentiary (current) use of opiate analgesic (ICD-10 - Z79.891) RECOMMEND URINE TESTING TODAY Urine drug screening will be performed today to monitor compliance with opioid therapy or to serve as a baseline screen for a patient who may be a candidate for opioid therapy in the future, pending UDS results. We will monitor with in-office testing (rapid testing) today and review the results prior to dispensing prescription. All positive results will be sent for quantitative analysis to ensure accuracy and quantify amounts. Any expected positive results that return negative will also be sent for quantitative analysis. Any questionable read or any medication we cannot test for in the office confidently will be sent for quantitative analysis, as well. Patient has been made aware of this policy and agrees to abide by our urine testing policy. 12/22/2024 terminal operator (current) use of opiate analgesic (ICD-10 - Z79.891) 04/14/2024 Other Tomi Contreras am scribing for Lyle Duckworth. Lyle Contreras, personally performed the services described in this documentation , as scribed by Tomi Lauren, and it is both accurate and complete. 06/16/2024 Other Tomi Contreras am scribing for Dr. Lyle Duckworth. I, Dr. Lyle Duckworth, personally performed the services described in this documentation , as scribed by Tomi Lauren, and it is both accurate and complete. 08/18/2024 Other Tomi Contreras am scribing for Dr. Lyle Duckworth. IDr. Lyle, personally performed the services described in this documentation, as scribed by Tomi Lauren, and it is both accurate and complete. 10/13/2024 Other Paula Contreras NCMA, am scribing for Dr. Lyle Duckworth. I, Dr. Lyle Duckworth, personally performed the services described in this documentation, as scribed by CLARK Rodriguez , and it is both accurate and complete. 12/22/2024 Other Paula Contreras NCMA, am scribing for Dr. Lyle Duckworth. I, Dr. Lyle Duckworth, personally performed the services described in this documentation, as scribed by CLARK Rdoriguez, and it is both accurate and complete. Plan Of Treatment Future Test Test Name Order Date 2 Limb NCV/EMG - [id number], [id number] 12/23/2024 Next Appt Details Provider Name:Concepción Contreras Cheko Hernandez, 03/10/2025 04:00:00 PM, [address] [place] [address], [id number], Provider Name:Lyle Duckworth, 04/20/2025 11:20:00 AM, [address] [place], [address], Insurance Providers Payer Name Payer Address Payer Phone Subscriber Number Group Number Insured Name Patient Relationship to Insured Coverage Start Date Coverage End Date [employer] [place] [address] [place] [address] [id number] Christy Coe Self - patient is the insured [place] Medicare [address] [address] [place] [address] [id number] Christy Coe Self - patient is the insured Medical (General) History Surgical History Surgery Date(Month/Year) Abdominal surgery Hysterectomy
--- OUTSIDE RECORDS SUMMARY | 2025-03-06 05:46 | XMS_ITS | Encounter Summary ---
Author Organization [facility] Address [address] [place] [address] Care Team Providers Care Labor Custodian Name Role Phone Mauro Soliman MD Primary Care Provider [phone]- [phone] Encounter Details Date Type Department Care Team (Latest Contact Info) Description 04/21/2003 Outpatient Historical [facility] [place] MD [facility] [address] POSTSURG AFTERCARE OTHER SPECIFIED (Primary Dx) Social History Tobacco Use Types Packs/Day Years Used Date Smoking Tobacco: Never Assessed Comments Unknown Sex and Gender Information Value Date Recorded Sex Assigned at Not on file Legal 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
--- OUTSIDE RECORDS SUMMARY | 2025-03-06 05:46 | XMS_ITS | Encounter Summary ---
Author Organization [facility] Address [address] [place] [address] Care Team Providers Care Chemical Detection Expert Name Role Phone Mauro Soliman MD Primary Care Provider [phone]- [phone] Encounter Details Date Type Department Care Team (Latest Contact Info) Description 07/30/2005 Outpatient Historical [facility]- [address] [id number] Mauro Soliman MD [address] [place] [address] SCREENING MAL NEOP-BREAST NOS (Primary Dx); DEPRESSIVE DISORDER NEC Social History Tobacco Use Types Packs/Day Years Used Date Smoking Tobacco: Never Assessed Comments Unknown Sex and Gender Information Value Date Recorded Sex Assigned at Not on file 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
--- OUTSIDE RECORDS SUMMARY | 2025-03-06 05:46 | XMS_ITS | Encounter Summary ---
Author Organization [facility] Address [address] [place] [address] Care Team Providers Care C Developer Name Role Phone Mauro Soliman MD Primary Care Provider [phone]- [phone] Encounter Details Date Type Department Care Team (Latest Contact Info) Description 06/08/2002 Outpatient Historical [facility] Family Medicine [place] [address] [facility] [address] [place] [address] Vick Corrales, NO ADDRESS ON FILE DISORDERS OF SACRUM (Primary Dx); HEMATURIA Social History Tobacco Use Types Packs/Day Years Used Date Smoking Tobacco: Never Assessed Comments Unknown Sex and Gender Information Value Date Recorded Sex Assigned at Not on file Legal 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
--- OUTSIDE RECORDS SUMMARY | 2025-03-06 05:46 | XMS_ITS | Encounter Summary ---
Author Organization [facility] Address [address] [place] [address] Care Team Providers Care Inclusion Manager Name Role Phone Mauro Soliman MD Primary Care Provider +1- [phone] Encounter Details Date Type Department Care Team (Late st Contact Info) Description 10/04/2004 Outpatient Historical [facility] Occupational Medicine-[address] [place] [address] [place] [address] Henrique Gandhi MD 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
--- OUTSIDE RECORDS SUMMARY | 2025-03-06 05:46 | XMS_ITS | Encounter Summary ---
Author Organization [employer] [facility] Address [address] [place] [address] Care Team Providers Care Licensed Embalmer Name Role Phone Mauro Soliman MD Primary Care Provider +1- [phone] Encounter Details Date Type Department Care Team (Late st Contact Info) Description 12/27/2002 Outpatient Historical [facility] Mauro Soliman MD [address] [facility] [address] [place] [address] Social History Tobacco Use Types Packs/Day Years Used Date Smoking Tobacco: Never Assessed Comments Unknown Sex and Gender Information Value Date Recorded Sex Assigned at Not on file Legal Sex Female 3:47 AM HOSPITAL INSURANCE REPRESENTATIVE Gender Identity Not on file Sexual Orientation Not on file documented as of this encounter Plan of Treatment Not on file documented as of this encounter Visit Diagnoses Not on filedocumented in this encounter Care Teams Licensed Embalmer Relationship Specialty Start Date End Date Mauro Soliman MD PCP - General 02/22/03 documented as of this encounter
--- OUTSIDE RECORDS SUMMARY | 2025-03-06 05:46 | XMS_ITS | Encounter Summary ---
Author Organization [facility] Address [address] [place] [address] Care Team Providers Care Manager Grocery Name Role Phone Mauro Soliman MD Primary Care Provider +1- [phone] Encounter Details Date Type Department Care Team (Latest Contact Info) Description 06/10/2002 Outpatient Historical [facility] Family Medicine [place] [address] [facility] [address] [place] [address] Almaz Marino MD NO ADDRESS ON FILE LUMBAGO (Primary Dx) Social History Tobacco Use Types Packs/Day Years Used Date Smoking Tobacco: Never Assessed Comments Unknown Sex and Gender Information Value Date Recorded Sex Assigned at Not on file Legal Sex Female 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
--- OUTSIDE RECORDS SUMMARY | 2025-03-06 05:46 | XMS_ITS | Encounter Summary ---
Author Organization [facility] Address [address] [place] [address] Care Team Providers Care Drywall Finisher Name Role Phone Mauro Soliman MD Primary Care Provider +1- [phone] Encounter Details Date Type Department Care Team (Late st Contact Info) Description 09/13/2004 Outpatient Historical [facility] [place] [address] [place] [address] Henrique Gandhi MD [address] [place] [address] Sprain lumbar region (Primary Dx) Social History Tobacco Use Types Packs/Day Years Used Date Smoking Tobacco: Never Assessed Comments Unknown Sex and Gender Information Value Date Recorded Sex Assigned at Not on file Legal Sex Female 3:47 AM MEDART OPERATOR Gender Identity Not on file Sexual Orientation Not on file documented as of this encounter Plan of Treatment Not on file documented as of this encounter Visit Diagnoses Diagnosis Sprain lumbar region- Primary Sprain of lumbar region documented in this encounter Care Teams Drywall Finisher Relationship Specialty Start Date End Date Mauro Soliman MD PCP - General 02/22/03 documented as of this encounter
--- OUTSIDE RECORDS SUMMARY | 2025-03-06 05:46 | XMS_ITS | Encounter Summary ---
Author Organization [employer] [facility] Address [address] [place] [address] Care Team Providers Care Pipe Fitter Ammonia Name Role Phone Mauro Soliman MD Primary Care Provider +1- [phone] Encounter Details Date Type Department Care Team (Late st Contact Info) Description 01/04/2008 Outpatient Historical [facility] [address] [place] [address] AMBULANCE, [facility] Social History Tobacco Use Types Packs/Day Years Used Date Smoking Tobacco: Never Assessed Comments Unknown Sex and Gender Information Value Date Recorded Sex Assigned at Not on file Legal Sex Female 3:47 AM COMPLIANCE REPRESENTATIVE Gender Identity Not on file Sexual Orientation Not on file documented as of this encounter Plan of Treatment Not on file documented as of this encounter Visit Diagnoses Not on filedocumented in this encounter Care Teams Pipe Fitter Ammonia Relationship Specialty Start Date End Date Mauro Soliman MD PCP - General 02/22/03 documented as of this encounter
--- OUTSIDE RECORDS SUMMARY | 2025-03-06 05:46 | XMS_ITS | Encounter Summary ---
Author Organization [facility] Address [address] [place] [address] Care Team Providers Care Supervisor Sulfuric Acid Plant Name Role Phone Mauro Soliman MD Primary Care Provider +1- [phone] Encounter Details Date Type Department Care Team (Latest Contact Info) Description 06/29/2001 Outpatient Historical [facility] Family Medicine [place] 104 [facility] 60 [place] [address] Almaz Marino MD NO ADDRESS ON FILE ESOPHAGEAL REFLUX (Primary Dx); Acute gastritis Social History Tobacco Use Types Packs/Day Years Used Date Smoking Tobacco: Never Assessed Comments Unknown Sex and Gender Information Value Date Recorded Sex Assigned at Not on file Legal Sex Female 3:47 AM ARCHAEOLOGIST Gender Identity Not on file Sexual Orientation Not on file documented as of this encounter Plan of Treatment Not on file documented as of this encounter Visit Diagnoses Diagnosis Esophageal reflux- Primary Acute gastritis Acute gastritis without mention of hemorrhage documented in this encounter Care Teams Supervisor Sulfuric Acid Plant Relationship Specialty Start Date End Date Mauro Soliman MD PCP - General 02/22/03 documented as of this encounter
--- OUTSIDE RECORDS SUMMARY | 2025-03-06 05:46 | XMS_ITS | Encounter Summary ---
Author Organization [facility] Address [address] [place] [address] Care Team Providers Care Physical Education Professor Name Role Phone Mauor Soliman MD Primary Care Provider +1- [phone] Encounter Details Date Type Department Care Team (Latest Contact Info) Description 03/25/2003 Outpatient Historical [facility] [address] [place] [address] Arden Beach MD [address] [place] [address] ABDOMINAL PAIN RUQ (Primary Dx) Social History Tobacco Use Types Packs/Day Years Used Date Smoking Tobacco: Never Assessed Comments Unknown Sex and Gender Information Value Date Recorded Sex Assigned at Not on file Legal Sex Female 3:47 AM TECHNICIAN SUPPORT 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
--- OUTSIDE RECORDS SUMMARY | 2025-03-06 05:46 | XMS_ITS | Encounter Summary ---
Author Organization [facility] Address [address] [place] [address] Care Team Providers Care Civil Project Engineer Name Role Phone Mauro Soliman MD Primary Care Provider +1- [phone] Encounter Details Date Type Department Care Team (Late st Contact Info) Description 10/04/2004 Outpatient Historical [facility] Imaging Services-[place] [address] [place] [address] Henrique Gandhi MD 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
--- OUTSIDE RECORDS SUMMARY | 2025-03-06 05:46 | XMS_ITS | Encounter Summary ---
Author Organization [facility] Address [address] [place] [address] Care Team Providers Care Eligibility Services Representative Name Role Phone Mauro Soliman MD Primary Care Provider +1- [phone] Encounter Details Date Type Department Care Team (Latest Contact Info) Description 04/02/2000 Outpatient Historical [facility] Family Medicine [place] 104 [facility] 60 [place] [address] Monik Barraza NO ADDRESS ON FILE Other bursitis disorders (Primary Dx) Social History Tobacco Use Types Packs/Day Years Used Date Smoking Tobacco: Never Assessed Comments Unknown Sex and Gender Information Value Date Recorded Sex Assigned at Not on file Legal Sex Female 3:47 AM SEW OUT OPERATOR Gender Identity Not on file Sexual Orientation Not on file documented as of this encounter Plan of Treatment Not on file documented as of this encounter Visit Diagnoses Diagnosis Other bursitis disorders- Primary documented in this encounter Care Teams Eligibility Services Representative Relationship Specialty Start Date End Date Mauro Soliman MD PCP - General 02/22/03 documented as of this encounter
--- OUTSIDE RECORDS SUMMARY | 2025-03-06 05:46 | XMS_ITS | Encounter Summary ---
Author Organization [facility] Address [address] [place] [address] Care Team Providers Care Editor Continuity And Script Name Role Phone Mauro Soliman MD Primary Care Provider +1- [phone] Encounter Details Date Type Department Care Team (Late st Contact Info) Description 08/08/2004 Outpatient Historical [facility] Occupational Medicine-[facility] [place] [address] [place] [address] Henrique Gandhi MD [address] 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
--- OUTSIDE RECORDS SUMMARY | 2025-03-06 05:46 | XMS_ITS | Encounter Summary ---
Author Organization [facility] Address [address] [place] [address] Care Team Providers Care Senior Process Control Tech Name Role Phone Mauro Soliman MD Primary Care Provider +1- [phone] Encounter Details Date Type Department Care Team (Latest Contact Info) Description 04/14/2000 Outpatient Historical [facility] Family Medicine- [place] [address] [place] [address] Monik Barraza NO ADDRESS ON FILE Other synovitis and tenosynovitis (Primary Dx); Other bursitis disorders; Sprain lumbosacral; Nonallopathic lesion of pelvic region, not elsewhere classified Social History Tobacco Use Types Packs/Day Years Used Date Smoking Tobacco: Never Assessed Comments Unknown Sex and Gender Information Value Date Recorded Sex Assigned at Not on file Legal Sex Female 3: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
--- OUTSIDE RECORDS SUMMARY | 2025-03-06 05:46 | XMS_ITS | Encounter Summary ---
Author Organization [facility] Address [address] [place] [address] Care Team Providers Care Pants Busheler Name Role Phone Mauro Soliman MD Primary Care Provider Encounter Details Date Type Department Care Team (Latest Contact Info) Description 05/16/[address] [facility] Family Medicine [place] 104 [facility] 60 [place] [address] Mauro Soliman MD [address] [facility] [address] [place] [address] ANXIETY STATE NOS (Primary Dx); DEPRESSIVE DISORDER NEC; ABDOMINAL PAIN UNSPEC SITE Social History Tobacco Use Types Packs/Day Years Used Date Smoking Tobacco: Never Assessed Comments Unknown Sex and Gender Information Value Date Recorded Sex Assigned at Not on file Legal Sex Female 3:47 AM BEHAVIORAL ANALYST Gender Identity Not on file Sexual Orientation Not on file documented as of this encounter Plan of Treatment Not on file documented as of this encounter Visit Diagnoses Diagnosis Anxiety state, unspecified- Primary Depressive disorder, not elsewhere classified Abdominal pain, unspecified site documented in this encounter Care Teams Pants Busheler Relationship Specialty Start Date End Date Mauro Soliman MD PCP - General 02/22/03 documented as of this encounter
--- OUTSIDE RECORDS SUMMARY | 2025-03-06 05:46 | XMS_ITS | Encounter Summary ---
Author Organization [facility] Address [address] [place] [address] Care Team Providers Care Overlock Sleeve Setter Name Role Phone Mauro Soliman MD Primary Care Provider [phone] Encounter Details Date Type Department Care Team (Latest Contact Info) Description 04/25/[address] [facility] Family Medicine [place] 104 [facility] 60 [place] [address] Mauro Soliman MD [address] [facility] 200 [place] [address] Unspecified gastritis and gastroduodenitis without mention of hemorrhage (Primary Dx) Social History Tobacco Use Types Packs/Day Years Used Date Smoking Tobacco: Never Assessed Comments Unknown Sex and Gender Information Value Date Recorded Sex Assigned at Not on file Legal Sex Female 3:47 AM SEAT TRIMMER Gender Identity Not on file Sexual Orientation Not on file documented as of this encounter Plan of Treatment Not on file documented as of this encounter Visit Diagnoses Diagnosis Unspecified gastritis and gastroduodenitis without mention of hemorrhage- Primary documented in this encounter Care Teams Overlock Sleeve Setter Relationship Specialty Start Date End Date Mauro Soliman MD PCP - General 02/22/03 documented as of this encounter
--- OUTSIDE RECORDS SUMMARY | 2025-03-06 05:46 | XMS_ITS | Encounter Summary ---
Author Organization [employer] [facility] Address [address] [place] [address] Care Team Providers Care Sweet Goods Machine Operator Name Role Phone Mauro Soliman MD Primary Care Provider +1- [phone] Encounter Details Date Type Department Care Team (Latest Contact Info) Description 05/31/2003 Outpatient Historical [facility] GENER[facility] SURGERY [place] MD [facility] [address] POSTSURG AFTERCARE OTHER SPECIFIED (Primary Dx) Social History Tobacco Use Types Packs/Day Years Used Date Smoking Tobacco: Never Assessed Comments Unknown Sex and Gender Information Value Date Recorded Sex Assigned at Not on file Legal 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
--- OUTSIDE RECORDS SUMMARY | 2025-03-06 05:46 | XMS_ITS | Encounter Summary ---
Author Organization [employer] [facility] Address [address] [place] [address] Care Team Providers Care Envelope Folding Machine Operator Name Role Phone Mauro Soliman MD Primary Care Provider +1- [phone] Encounter Details Date Type Department Care Team (Latest Contact Info) Description 02/01/2003 Outpatient Historical [facility] GENERAL SURGERY [place] MD [facility] [address] POSTSURG AFTERCARE OTHER SPECIFIED (Primary Dx) Social History Tobacco Use Types Packs/Day Years Used Date Smoking Tobacco: Never Assessed Comments Unknown Sex and Gender Information Value Date Recorded Sex Assigned at Not on file Legal Sex Female 3: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
--- OUTSIDE RECORDS SUMMARY | 2025-03-06 05:46 | XMS_ITS | Encounter Summary ---
Author Organization [employer] [facility] Address [address] [place] [address] Care Team Providers Care Senior Cobol Developer Name Role Phone Mauro Soliman MD Primary Care Provider [phone]- [phone] Encounter Details Date Type Department Care Team (Latest Contact Info) Description 02/15/2003 Outpatient Historical [facility] [place] MD [facility] [address] POSTSURG AFTERCARE OTHER SPECIFIED (Primary Dx) Social History Tobacco Use Types Packs/Day Years Used Date Smoking Tobacco: Never Assessed Comments Unknown Sex and Gender Information Value Date Recorded Sex Assigned at Not on file Legal Sex Female 3:47 AM MANAGER OF PROJECT MANAGEMENT Gender Identity Not on file Sexual Orientation Not on file documented as of this encounter Plan of Treatment Not on file documented as of this encounter Visit Diagnoses Diagnosis Other specified aftercare following surgery- Primary documented in this encounter Care Teams Senior Cobol Developer Relationship Specialty Start Date End Date Mauro Soliman MD PCP - General 02/22/03 documented as of this encounter
--- OUTSIDE RECORDS SUMMARY | 2025-03-06 05:46 | XMS_ITS | Encounter Summary ---
Author Organization [facility] Address [address] [place] [address] Care Team Providers Care Floor Installer Name Role Phone Mauro Soliman MD Primary Care Provider +1- [phone] Encounter Details Date Type Department Care Team (Late st Contact Info) Description 08/23/2004 Outpatient Historical [facility] Occupational Medicine-[facility] [place] [address] [place] [address] Henrique Gandhi MD [address] [place] [address] Sprain lumbosacral (Primary Dx) Social History Tobacco Use Types Packs/Day Years Used Date Smoking Tobacco: Never Assessed Comments Unknown Sex and Gender Information Value Date Recorded Sex Assigned at Not on file Legal Sex Female 3:47 AM PLAY READER Gender Identity Not on file Sexual Orientation Not on file documented as of this encounter Plan of Treatment Not on file documented as of this encounter Visit Diagnoses Diagnosis Sprain lumbosacral- Primary Sprain of lumbosacral (joint) (ligament) documented in this encounter Care Teams Floor Installer Relationship Specialty Start Date End Date Mauro Soliman MD PCP - General 02/22/03 documented as of this encounter
--- OUTSIDE RECORDS SUMMARY | 2025-03-06 05:46 | XMS_ITS | Encounter Summary ---
Author Organization [facility] Address [address] [place] [address] Care Team Providers Care Engraving Operator Name Role Phone Mauro Soliman MD Primary Care Provider +1- [phone] Encounter Details Date Type Department Care Team (Latest Contact Info) Description 07/23/2004 Outpatient Historical [facility] [address] [place] [address] [facility] 100 [place] [address] Esther Mercado MD [address] [facility] [address] [place] [address] DISORDERS OF SACRUM (Primary Dx) Social History Tobacco Use Types Packs/Day Years Used Date Smoking Tobacco: Never Assessed Comments Unknown Sex and Gender Information Value Date Recorded Sex Assigned at Not on file Legal Sex Female 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
--- OUTSIDE RECORDS SUMMARY | 2025-03-06 05:46 | XMS_ITS | Encounter Summary ---
Author Organization [facility] Address [address] [place] [address] Care Team Providers Care Squad Sergeant Name Role Phone Mauro Soliman MD Primary Care Provider Encounter Details Date Type Department Care Team (Latest Contact Info) Description 05/08/1998 Outpatient Historical [facility] Family Medicine [place] 104 [facility] 60 [place] [address] Mauro Soliman MD [address] [facility] 200 [place] [address] Urinary tract infection, site not specified (Primary Dx) Social History Tobacco Use Types Packs/Day Years Used Date Smoking Tobacco: Never Assessed Comments Unknown Sex and Gender Information Value Date Recorded Sex Assigned at Not on file Legal Sex Female 3:47 AM ARTISTS' MODEL Gender Identity Not on file Sexual Orientation Not on file documented as of this encounter Plan of Treatment Not on file documented as of this encounter Visit Diagnoses Diagnosis Urinary tract infection, site not specified- Primary documented in this encounter Care Teams Squad Sergeant Relationship Specialty Start Date End Date Mauro Soliman MD PCP - General 02/22/03 documented as of this encounter
--- OUTSIDE RECORDS SUMMARY | 2025-03-06 05:46 | XMS_ITS | Encounter Summary ---
Author Organization [facility] Address [address] [place] [address] Care Team Providers Care Digital Account Director Name Role Phone Mauro Soliman MD Primary Care Provider +1- [phone] Encounter Details Date Type Department Care Team (Latest Contact Info) Description 03/08/2003 Outpatient Historical [facility] Imaging Services-S[place] [address] [place] [address] Cliff Beach MD [address] [place] [address] ABDOMINAL PAIN UNSPEC SITE (Primary Dx) Social History Tobacco Use Types Packs/Day Years Used Date Smoking Tobacco: Never Assessed Comments Unknown Sex and Gender Information Value Date Recorded Sex Assigned at Not on file Legal Sex Female 3:47 AM DIRECTOR CAREER SERVICES Gender Identity Not on file Sexual Orientation Not on file documented as of this encounter Plan of Treatment Not on file documented as of this encounter Visit Diagnoses Diagnosis Abdominal pain, unspecified site- Primary documented in this encounter Care Teams Digital Account Director Relationship Specialty Start Date End Date Mauro Soliman MD PCP - General 02/22/03 documented as of this encounter
--- OUTSIDE RECORDS SUMMARY | 2025-03-06 05:46 | XMS_ITS | Encounter Summary ---
Author Organization [facility] Address [address] [place] [address] Care Team Providers Care Cement Contractor Name Role Phone Mauro Soliman MD Primary Care Provider +1- [phone] Encounter Details Date Type Department Care Team (Latest Contact Info) Description 07/23/2004 Outpatient Historical [facility] [address] [place] [address] Esther Mercado MD [address] [address] LUMB/LUMBOSAC DISC DEGEN (Primary Dx) Social History Tobacco Use Types Packs/Day Years Used Date Smoking Tobacco: Never Assessed Comments Unknown Sex and Gender Information Value Date Recorded Sex Assigned at Not on file Legal Sex Female 3:47 AM PROGRESS CLERK Gender Identity Not on file Sexual Orientation Not on file documented as of this encounter Plan of Treatment Not on file documented as of this encounter Visit Diagnoses Diagnosis Degeneration of lumbar or lumbosacral intervertebral disc- Primary documented in this encounter Care Teams Cement Contractor Relationship Specialty Start Date End Date Mauro Soliman MD PCP - General 02/22/03 documented as of this encounter
--- OUTSIDE RECORDS SUMMARY | 2025-03-06 05:46 | XMS_ITS | Encounter Summary ---
Author Organization [facility] Address [address] [place] [address] Care Team Providers Care Silk Screen Printer Name Role Phone Mauro Soliman MD Primary Care Provider +1- [phone] Encounter Details Date Type Department Care Team (Latest Contact Info) Description 04/01/2003 Inpatient Historical [facility] Operating Room [address] [place] [address] Cliff [place] MD [address] [place] [address] INTEST ADHES W OBSTR POST OP/INFECT (CMS/HCC) (Primary Dx) Social History Tobacco Use Types Packs/Day Years Used Date Smoking Tobacco: Never Assessed Comments Unknown Sex and Gender Information Value Date Recorded Sex Assigned at Not on file Legal Sex Female 3:47 AM DIRECTOR FAMILY Gender Identity Not on file Sexual Orientation Not on file documented as of this encounter Plan of Treatment Not on file documented as of this encounter Visit Diagnoses Diagnosis Intestinal or peritoneal adhesions with obstruction (postoperative) (postinfection)- Primary documented in this encounter Care Teams Silk Screen Printer Relationship Specialty Start Date End Date Mauro Soliman MD PCP - General 02/22/03 documented as of this encounter
--- OUTSIDE RECORDS SUMMARY | 2025-03-06 05:46 | XMS_ITS | Encounter Summary ---
Author Organization [facility] Address [address] [place] [address] Care Team Providers Care Neck Pinner Name Role Phone Mauro Soliman MD Primary Care Provider [phone]- [phone] Encounter Details Date Type Department Care Team (Latest Contact Info) Description 03/08/2003 Outpatient Historical [facility]ERY Cliff [place] MD [facility] [place] [address] POSTSURG AFTERCARE OTHER SPECIFIED (Primary Dx) Social History Tobacco Use Types Packs/Day Years Used Date Smoking Tobacco: Never Assessed Comments Unknown Sex and Gender Information Value Date Recorded Sex Assigned at Not on file Legal Sex Female 3:47 AM PRINT SUPPORT SPECIALIST Gender Identity Not on file Sexual Orientation Not on file documented as of this encounter Plan of Treatment Not on file documented as of this encounter Visit Diagnoses Diagnosis Other specified aftercare following surgery- Primary documented in this encounter Care Teams Neck Pinner Relationship Specialty Start Date End Date Mauro Soliman MD PCP - General 02/22/03 documented as of this encounter
--- OUTSIDE RECORDS SUMMARY | 2025-03-06 05:46 | XMS_ITS | Encounter Summary ---
Author Organization [facility] Address [address] [place]: [place] [address] Care Team Providers Care Automotive Sales Executive Name Role Phone Mauro Soliman MD Primary Care Provider [phone]- [phone] Encounter Details Date Type Department Care Team (Late st Contact Info) Description 01/05/2003 Inpatient Historical Cliff Beach MD [address] [address] COMPLIC-DIGESTIVE SYSTEM (Primary Dx) Social History Tobacco Use Types Packs/Day Years Used Date Smoking Tobacco: Never Assessed Comments Unknown Sex and Gender Information Value Date Recorded Sex Assigned at Not on file Legal Sex Female 3:47 AM PHYSICAL INSTRUCTOR Gender Identity Not on file Sexual Orientation Not on file documented as of this encounter Plan of Treatment Not on file documented as of this encounter Visit Diagnoses Diagnosis Digestive system complication- Primary documented in this encounter Care Teams Automotive Sales Executive Relationship Specialty Start Date End Date Mauro Soliman MD PCP - General 02/22/03 documented as of this encounter
--- OUTSIDE RECORDS SUMMARY | 2025-03-06 05:46 | XMS_ITS | Encounter Summary ---
Author Organization [facility] Address [address] [place] [address] Care Team Providers Care Salt Miner Name Role Phone Mauro Soliman MD Primary Care Provider [phone] Encounter Details Date Type Department Care Team (Latest Contact Info) Description 07/16/2002 Outpatient Historical [facility] Family Medicine [place] [address] [facility] [address] [place] [id number] Mauro Soliman MD [address] [facility] [address] [place] [address] Gynecologic examination (Primary Dx); SCREENING MAL NEOP-BREAST,UNSPEC; ACUTE SINUSITIS NOS Social History Tobacco Use Types Packs/Day Years Used Date Smoking Tobacco: Never Assessed Comments Unknown Sex and Gender Information Value Date Recorded Sex Assigned at Not on file Legal Sex Female 3:47 AM ART DEPARTMENT HEAD Gender Identity Not on file Sexual Orientation Not on file documented as of this encounter Plan of Treatment Not on file documented as of this encounter Visit Diagnoses Diagnosis Gynecologic examination- Primary Gynecological examination Breast screening, unspecified Acute sinusitis, unspecified documented in this encounter Care Teams Salt Miner Relationship Specialty Start Date End Date Mauro Soliman MD PCP - General 02/22/03 documented as of this encounter
--- OUTSIDE RECORDS SUMMARY | 2025-03-06 05:46 | XMS_ITS | Encounter Summary ---
Author Organization [facility] Address [address] [place] [address] Care Team Providers Care Informatics Educator Name Role Phone Mauro Soliman MD Primary Care Provider Encounter Details Date Type Department Care Team (Latest Contact Info) Description 05/29/1999 Outpatient Historical [facility] Family Medicine [place] [address] [facility] [address] [place] [address] Mauro Soliman MD [address] [facility] [address] [place] [address] Unspecified sinusitis (chronic) (Primary Dx) Social History Tobacco Use Types Packs/Day Years Used Date Smoking Tobacco: Never Assessed Comments Unknown Sex and Gender Information Value Date Recorded Sex Assigned at Not on file Legal Sex Female 3:47 AM CUSTODIAL MANAGER Gender Identity Not on file Sexual Orientation Not on file documented as of this encounter Plan of Treatment Not on file documented as of this encounter Visit Diagnoses Diagnosis Unspecified sinusitis (chronic)- Primary documented in this encounter Care Teams Informatics Educator Relationship Specialty Start Date End Date Mauro Soliman MD PCP - General 02/22/03 documented as of this encounter
--- OUTSIDE RECORDS SUMMARY | 2025-03-06 05:46 | XMS_ITS | Encounter Summary ---
Author Organization [facility] Address [address] [place] [address] Care Team Providers Care Mems Integration Engineer Name Role Phone Mauro Soliman MD Primary Care Provider [phone] Encounter Details Date Type Department Care Team (Latest Contact Info) Description 07/10/1998 Outpatient Historical [facility] Family Medicine [place] [address] [facility] [address] [place] [address] Mauro Soliman MD [address] [facility] [address] [place] [address] Acute sinusitis, unspecified (Primary Dx) Social History Tobacco Use Types Packs/Day Years Used Date Smoking Tobacco: Never Assessed Comments Unknown Sex and Gender Information Value Date Recorded Sex Assigned at Not on file Legal Sex Female 3:47 AM BOTTLE MACHINE OPERATOR Gender Identity Not on file Sexual Orientation Not on file documented as of this encounter Plan of Treatment Not on file documented as of this encounter Visit Diagnoses Diagnosis Acute sinusitis, unspecified- Primary documented in this encounter Care Teams Mems Integration Engineer Relationship Specialty Start Date End Date Mauro Soliman MD PCP - General 02/22/03 documented as of this encounter
--- OUTSIDE RECORDS SUMMARY | 2025-03-06 05:46 | XMS_ITS | Encounter Summary ---
Author Organization [facility] Address [address] [place] [address] Care Team Providers Care Chief Engineer Waterworks Name Role Phone Mauro Soliman MD Primary Care Provider [phone]- [phone] Encounter Details Date Type Department Care Team (Latest Contact Info) Description 05/18/2001 Outpatient Historical [facility] Family Medicine [place] [address] [facility] [place] [address] [place] [phone] Mauro Soliman MD [address] 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
--- OUTSIDE RECORDS SUMMARY | 2025-03-06 05:46 | XMS_ITS | Encounter Summary ---
Author Organization [facility] Address [address] [place] [address] Care Team Providers Care Truck Terminal Manager Name Role Phone Mauro Soliman MD Primary Care Provider [phone]- [phone] Encounter Details Date Type Department Care Team (Latest Contact Info) Description 12/27/2002 Outpatient Historical [facility] Family Medicine [place] [address] [facility] [address] [place] [phone] Mauro Soliman MD [address] [facility] [address] [place] [address] ABDOMINAL PAIN UNSPEC SITE (Primary Dx); WBC DISEASE NEC Social History Tobacco Use Types Packs/Day Years Used Date Smoking Tobacco: Never Assessed Comments Unknown Sex and Gender Information Value Date Recorded Sex Assigned at Not on file 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
--- NOTE | 2025-03-06 05:47 | CTR_ITS ---
PROCEDURE INFORMATION: Exam: CT Abdomen And Pelvis With Contrast Exam date and time: 03/06/2025 06:05 AM Age: 70 years old Clinical indication: Abdominal pain; Prior surgery; Surgery date: 6+ months; Surgery type: Hysto, appy, gb, colon; Additional info: Abd pain TECHNIQUE: Imaging protocol: Computed tomography of the abdomen and pelvis with contrast. Radiation optimization: All CT scans at this facility use at least one of these dose optimization techniques: automated exposure control; mA and/or kV adjustment per patient size (includes targeted exams where dose is matched to clinical indication); or iterative reconstruction. Contrast material: OMNI 350; Contrast volume: 100 ml; Contrast route: INTRAVENOUS (IV); COMPARISON: CT abdomen pelvis w con* [id number] 02/19/2020 03:59 PM RADIATION DOSE METRICS: Total DLP (mGy-cm): 664.79 FINDINGS: Lungs: Bibasilar atelectasis/scarring. Diaphragm: Moderate hiatal hernia. Liver: Normal. No mass. Gallbladder and biliary ducts: Prior cholecystectomy. Mild central intrahepatic biliary ductal dilatation. Pancreas: Pancreatic atrophy. Spleen: Normal. No splenomegaly. Adrenal glands: Normal. No mass. Kidneys and ureters: Normal. No hydronephrosis. Stomach and bowel: Non rotation with the colon on the left side of the abdomen in the small bowel in the right. Dilated fluid-filled small bowel loops up to 3.3 cm. Decompressed distal small bowel with a transition zone in the rightward abdomen (series 4, image 35). Appendix: Status post appendectomy. Intraperitoneal space: Perisplenic free fluid. Small amount of pelvic free fluid. Vasculature: Atherosclerotic vascular disease. Lymph nodes: Unremarkable. No enlarged lymph nodes. Urinary bladder: Unremarkable as visualized. Reproductive: Status post hysterectomy. Bones/joints: Degenerative changes of the spine with disc space narrowing at L5-S1. Multilevel facet arthropathy. Right hip prosthesis. Soft tissues: Unremarkable. CT/CT abdomen pelvis w con* [id number] IMPRESSION: 1. Non rotation with the colon on the left side of the abdomen and the small bowel in the right. 2. Dilated fluid-filled small bowel loops up to 3.3 cm. Decompressed distal small bowel with a transition zone in the rightward abdomen (series 4, image 35). Appearances consistent with small bowel obstruction. 3. Hiatal hernia. 4. Small amount of free fluid.
--- NOTE | 2025-03-06 05:48 | W.ED.ABDPA2 ---
HPI - Abdominal Pain General: Chief Complaint: Abdominal Pain Stated Complaint: intestinal issues malrotation n/v Time Seen by Provider: 03/06/25 05:42 Source: patient Mode of arrival: ambulatory Limitations: no limitations History of Present Illness: 70-year-old female states she has been having nausea vomiting since last night. States she has had history of small bowel obstructions in the past states she ate some barbecue last night's been having diffuse abdominal pain cramping she rates an 8 out of 10 along with multiple episodes of vomiting. She denies any fevers denies any worse or improving factors. Associated Symptoms: Reports vomiting Related Data Home Medications ?Medication ?Instructions ?Recorded ?Confirmed fluticasone propionate 50 1 - 2 spray intranasal DAILY PRN 02/19/20 09/13/21 mcg/actuation nasal unknown spray,suspension hydrocodone 10 mg-acetaminophen 1 tab PO QID PRN Pain 02/19/20 09/13/21 325 mg tablet ibuprofen 200 mg tablet 600 mg PO PRN 02/19/20 09/13/21 multivitamin (Multiple Vitamins 1 tab PO DAILY 02/19/20 09/13/21 tablet) sumatriptan succinate 100 mg tablet 100 mg PO PRN 02/19/20 09/13/21 trazodone 50 mg tablet 50 mg PO BEDTIME 02/19/20 09/13/21 dicyclomine 20 mg tablet 20 mg PO DAILY 02/14/21 09/13/21 metoprolol succinate 25 mg 25 mg PO DAILY 02/14/21 09/13/21 tablet,extended release 24 hr pantoprazole 40 mg tablet,delayed 40 mg PO DAILY 02/14/21 09/13/21 release Previous Rx's ?Medication ?Instructions ?Recorded hydrocodone 5 mg-acetaminophen 325 1 - 2 tab PO .Q4-6H #40 tabs 02/19/21 mg tablet hydrocodone 7.5 mg-acetaminophen 15 ml PO Q4H PRN pain 7 days #450 03/06/21 325 mg/15 mL oral solution mL cyclobenzaprine 5 mg tablet 5 mg PO TID PRN muscle spasm #90 03/08/21 tabs hydrocodone 10 mg-acetaminophen 15 ml PO Q4H PRN pain 7 days #300 03/19/21 325 mg/15 mL (15 mL) oral solution mL Allergies Allergy/AdvReac Type Severity Reaction Status Date / Time codeine Allergy RASH Verified 09/13/21 15:11 Penicillins Allergy RASH Verified 09/13/21 15:11 Review of Systems GI: Reports: abdominal pain and vomiting PFSH ED PFSH: Surgical History H/O laparoscopy S/P laparotomy H/O partial resection of colon H/O: hysterectomy S/P appendectomy S/P cholecystectomy Social History Smoking and tobacco/nicotine status: light tobacco/nicotine user Alcohol intake: never Substance/Drug Use: never Physical Exam Const: COMMON NORMALS: no acute distress, patient oriented x3 and healthy appearing HENMT: COMMON NORMALS: normocephalic and atraumatic HEAD & SCALP: normocephalic and atraumatic Eye: COMMON NORMALS: conjunctivae normal CONJUNCTIVA: Yes conjunctivae normal Neck/C-Spine: COMMON NORMALS: full ROM and supple Chest: COMMONS NORMALS: normal inspection of the chest Resp: COMMON NORMALS: normal respiratory effort Cardio: COMMON NORMALS: regular rate, regular rhythm and No murmurs present (Cardio) RATE: regular rate RHYTHM: regular rhythm GI: COMMON NORMALS: Normal to inspection, nondistended, normoactive bowel sounds present, Soft to palpation and no masses PALPATION: Yes Soft to palpation OTHER: diffuse tenderness Extremity: COMMON NORMALS: normal to inspection and full ROM Neuro: COMMON NORMALS: patient oriented x3, moves all extremities and no focal motor deficits Psych: COMMON NORMALS: mental status grossly normal, Normal thought process present and cooperative THOUGHT PROCESS: Normal thought process present Skin: COMMON NORMALS: no rashes or lesions noted and no wounds GENERAL SKIN EXAM: no rashes or lesions noted Course Vital Signs: Vital signs: Vital Signs Temperature 98 F 03/06/25 06:08 Pulse Rate 95 03/06/25 06:55 Respiratory Rate 26 H 03/06/25 06:08 Blood Pressure 154/93 03/06/25 06:55 Pulse Oximetry 93 03/06/25 06:55 Oxygen Delivery Me thod Room Air 03/06/25 06:08 MDM - Abdominal Pain Medical Records I reviewed the patient's medical records. Lab Data I reviewed the patient's lab results. 03/06/25 06:01 03/06/25 06:01 Labs/Radiology: Radiology Impressions Abdomen/Pelvis CT 03/06/25 05:47 IMPRESSION: 1. Non rotation with the colon on the left side of the abdomen and the small bowel in the right. 2. Dilated fluid-filled small bowel loops up to 3.3 cm. Decompressed distal small bowel with a transition zone in the rightward abdomen (series 4, image 35). Appearances consistent with small bowel obstruction. 3. Hiatal hernia. 4. Small amount of free fluid. ADDENDUM: 03/06/25 0726 COMMENT: THIS REPORT CONTAINS FINDINGS THAT MAY BE CRITICAL TO PATIENT CARE. The exam findings were verbally communicated by me to HODA LIMON via telephone conference at 07:25 AM CDT on 03/06/2025. The findings were acknowledged and understood. Laboratory Results WBC 14.71 10^3/uL (3.29-11.43) H 03/06/25 06:01 RBC 5.67 10^6/uL (3.85-5.65) H 03/06/25 06:01 Hgb 12.30 g/dL (11.27-16.99) 03/06/25 06:01 Hct 42.0 % (36-47) 03/06/25 06: MCV 74.1 fl (85-98) L 03/06/25 06:01 MCH 21.7 pg (27-33) L 03/06/25 06:01 MCHC 29.3 g/dL (30-55) L 03/06/25 06:01 RDW 16.4 % (12.1-15.1) H 03/06/25 06:01 Plt Count 428 10^3/cmm (157-399) H 03/06/25 06:01 MPV 9.6 fL (7.4-10.4) 03/06/25 06:01 Neut % (Auto) 87.3 % 03/06/25 06:01 Lymph % (Auto) 9.9 % 03/06/25 06:01 Island % (Auto) 2.2 % 03/06/25 06:01 Eos % (Auto) 0.0 % 03/06/25 06:01 Baso % (Auto) 0.3 % 03/06/25 06:01 Neut # (Auto) 12.83 10^3/uL (1.8-7.7) H 03/06/25 06:01 Lymph # (Auto) 1.5 10^3/uL (0.8-4.8) 03/06/25 06:01 Island # (Auto) 0.3 10^3/uL (0.2-0.9) 03/06/25 06:01 Eos # (Auto) 0.0 10^3/uL (0.0-0.8) 03/06/25 06:01 Baso # (Auto) 0.0 10^3/uL (0.0-0.1) 03/06/25 06:01 Nucleated RBC % (auto) 0 % 03/06/25 06:01 Nucleated RBCs # 0.0 /100WBC 03/06/25 06:01 Sodium 139 mmol/L (136-145) 03/06/25 06:01 Potassium 4.6 mmol/L (3.5-5.1) 03/06/25 06:01 Chloride 98 mmol/L (98-107) 03/06/25 06:01 Carbon Dioxide 25 mmol/L (22-29) 03/06/25 06:01 Anion Gap 20.6 (5-19) H 03/06/25 06:01 BUN 16 mg/dL (8-23) 03/06/25 06:01 Creatinine 0.7 mg/dL (0.5-0.9) 03/06/25 06:01 GFR Calculation 83.2 mL/min (90-130) L 03/06/25 06:01 Glucose 233 mg/dL (65-115) H 03/06/25 06:01 Calculated Osmolality 297 mOsm/kg (285-295) H 03/06/25 06:01 Lactic Acid 3.0 mmol/L (0.5-2.2) H 03/06/25 06:01 Calcium 11.0 mg/dL (8.5-10.5) H 03/06/25 06:01 Total Bilirubin 0.3 mg/dL (0.15-1.2) 03/06/25 06:01 AST 18 U/L (0-32) 03/06/25 06:01 ALT 17 U/L (0-33) 03/06/25 06:01 Alkaline Phosphatase 90 U/L (35-105) 10/05/25 06:01 Total Protein 8.5 g/dL (6.6-8.7) 03/06/25 06:01 Albumin 5.0 g/dL (3.5-5.2) 03/06/25 06:01 Globulin 3.5 g/dL (1.3-4.6) 03/06/25 06:01 Lipase 18 U/L (13-60) 03/06/25 06:01 All radiology interpretation(s) finalized by discharge Discharge Plan Discharge Patient Disposition: Admitted As Inpatient Clinical Impression: Small bowel obstruction Condition: Stable Coding Level of Care Code ED Recruiting Assistant for Rachana Baird
[2025-03-06] MEDS: ondansetron 2 mg/ML SDV 2 mL 4 MG IVP (06:00)
[2025-03-06] MEDS: morphine 4 mg/mL SDV 1 mL IVP (06:00)
[2025-03-06] MEDS: iohexol 350 mg/mL 500 mL Btl (per mL) IV (06:08)
[2025-03-06 06:11] LABS: Hematocrit 42.0 % (36-47); Hemoglobin 12.30 g/dL (11.27-16.99); Mean Corpuscular HGB Conc 29.3 g/dL (30-55); Mean Corpuscular Hemoglobin 21.7 pg (27-33); Mean Corpuscular Volume 74.1 fl (85-98); Nucleated Red Blood Cells % 0 %; Platelet Count 428 10^3/cmm (157-399); Red Blood Count 5.67 10^6/uL (3.85-5.65); White Blood Count 14.71 10^3/uL (3.29-11.43)
[2025-03-06 06:35] LABS: Alanine Aminotransferase 17 U/L (0-33); Albumin Level 5.0 g/dL (3.5-5.2); Alkaline Phosphatase 90 U/L (35-105); Anion Gap 20.6 (5-19); Aspartate Amino Transferase 18 U/L (0-32); Blood Urea Nitrogen 16 mg/dL (8-23); Calcium 11.0 mg/dL (8.5-10.5); Carbon Dioxide 25 mmol/L (22-29); Chloride 98 mmol/L (98-107); Creatinine Clr Calc Pharmacy 63.2855; Globulin 3.5 g/dL (1.3-4.6); Glucose 233 mg/dL (65-115); Lipase 18 U/L (13-60); Osmolality Calculated 297 mOsm/kg (285-295); Potassium 4.6 mmol/L (3.5-5.1); Sodium 139 mmol/L (136-145); Total Protein 8.5 g/dL (6.6-8.7)
[2025-03-06 06:45] LABS: Lactic Sepsis W/Reflex 3.0 mmol/L (0.5-2.2)
[2025-03-06] MEDS: HYDROmorphone 0.5 MG/0.5 ML INJ IVP (06:51)
--- NOTE | 2025-03-06 07:11 | XRR_ITS ---
PROCEDURE INFORMATION: Exam: XR Chest Exam date and time: 03/06/2025 08:03 AM Age: 70 years old Clinical indication: Device placement; Ng tube; Prior surgery; Surgery date: 6+ months; Surgery type: Colon; Additional info: Possible sepsis TECHNIQUE: Imaging protocol: Radiologic exam of the chest. Views: 1 view. COMPARISON: CT abdomen pelvis w con* [id number] 03/06/2025 06:05 AM FINDINGS: Tubes, catheters and devices: Enteric tube tip in the body of the stomach. Lungs: Low lung volumes. Probable bibasilar atelectasis. Pleural spaces: Unremarkable. No pleural effusion. No pneumothorax. Heart/Mediastinum: Cardiac size and configuration is stable. Vasculature: Atherosclerotic vascular disease. Bones/joints: Postsurgical changes to the lower cervical spine. Degenerative changes of the spine. Osteopenia. XR/XR chest 1V portable [id number] IMPRESSION: 1. Bibasilar atelectasis. 2. Enteric tube tip in the body of the stomach.
[2025-03-06] MEDS: LORazepam 1 MG/0.5 ML injection IVP (07:16)
[2025-03-06 07:30] LABS: Reflex Lactate Order REFLEX LACTIC ORDERD
[2025-03-06] MEDS: cefepime 2,000 mg SDV 2000 MG IVP (07:35)
--- NOTE | 2025-03-06 07:40 | W.ED.ABDPA2 ---
HPI - Abdominal Pain General: Chief Complaint: Abdominal Pain Stated Complaint: intestinal issues malrotation n/v Time Seen by Provider: 03/06/25 05:42 Source: patient Mode of arrival: ambulatory Limitations: no limitations History of Present Illness: 70-year-old female who states that she has been having abdominal pain and vomiting since last night. States she has had multiple episodes of vomiting and severe pain she rates a 9 out of 10. She has had multiple surgeries in the past and has had small bowel obstructions. She denies any fevers denies any worse improving factors. Has not had any bowel movements Associated Symptoms: Reports vomiting Related Data Home Medications ?Medication ?Instructions ?Recorded ?Confirmed fluticasone propionate 50 1 - 2 spray intranasal DAILY PRN 02/19/20 09/13/21 mcg/actuation nasal unknown spray,suspension hydrocodone 10 mg-acetaminophen 1 tab PO QID PRN Pain 02/19/20 09/13/21 325 mg tablet ibuprofen 200 mg tablet 600 mg PO PRN 02/19/20 09/13/21 multivitamin (Multiple Vitamins 1 tab PO DAILY 02/19/20 09/13/21 tablet) sumatriptan succinate 100 mg tablet 100 mg PO PRN 02/19/20 09/13/21 trazodone 50 mg tablet 50 mg PO BEDTIME 02/19/20 09/13/21 dicyclomine 20 mg tablet 20 mg PO DAILY 02/14/21 09/13/21 metoprolol succinate 25 mg 25 mg PO DAILY 02/14/21 09/13/21 tablet,extended release 24 hr pantoprazole 40 mg tablet,delayed 40 mg PO DAILY 02/14/21 09/13/21 release Previous Rx's ?Medication ?Instructions ?Recorded hydrocodone 5 mg-acetaminophen 325 1 - 2 tab PO .Q4-6H #40 tabs 02/19/21 mg tablet hydrocodone 7.5 mg-acetaminophen 15 ml PO Q4H PRN pain 7 days #450 03/06/21 325 mg/15 mL oral solution mL cyclobenzaprine 5 mg tablet 5 mg PO TID PRN muscle spasm #90 03/08/21 tabs hydrocodone 10 mg-acetaminophen 15 ml PO Q4H PRN pain 7 days #300 03/19/21 325 mg/15 mL (15 mL) oral solution mL Allergies Allergy/AdvReac Type Severity Reaction Status Date / Time codeine Allergy RASH Verified 09/13/21 15:11 Penicillins Allergy RASH Verified 09/13/21 15:11 Review of Systems GI: Reports: abdominal pain and vomiting PFSH ED PFSH: Surgical History H/O laparoscopy S/P laparotomy H/O partial resection of colon H/O: hysterectomy S/P appendectomy S/P cholecystectomy Social History Smoking and tobacco/nicotine status: light tobacco/nicotine user Alcohol intake: never Substance/Drug Use: never Physical Exam Const: COMMON NORMALS: no acute distress, patient oriented x3 and healthy appearing HENMT: COMMON NORMALS: normocephalic and atraumatic HEAD & SCALP: normocephalic and atraumatic Eye: COMMON NORMALS: conjunctivae normal CONJUNCTIVA: Yes conjunctivae normal Neck/C-Spine: COMMON NORMALS: full ROM and supple Chest: COMMONS NORMALS: normal inspection of the chest Resp: COMMON NORMALS: normal respiratory effort, No retractions, No use of accessory muscles and clear to auscultation bilaterally AUSCULTATION: clear to auscultation bilaterally Cardio: COMMON NORMALS: regular rate, regular rhythm and No murmurs present (Cardio) RATE: regular rate RHYTHM: regular rhythm GI: COMMON NORMALS: no masses OTHER: Decreased bowel sounds with diffuse tenderness Extremity: COMMON NORMALS: normal to inspection and full ROM Neuro: COMMON NORMALS: patient oriented x3, moves all extremities and no focal motor deficits Psych: COMMON NORMALS: mental status grossly normal, Normal thought process present and cooperative THOUGHT PROCESS: Normal thought process present Skin: COMMON NORMALS: no rashes or lesions noted and no wounds GENERAL SKIN EXAM: no rashes or lesions noted Course Vital Signs: Vital signs: Vital Signs Temperature 98 F 03/06/25 06:08 Pulse Rate 95 03/06/25 06:55 Respiratory Rate 26 H 03/06/25 06:08 Blood Pressure 154/93 03/06/25 06:55 Pulse Oximetry 93 03/06/25 06:55 Oxygen Delivery Me thod Room Air 03/06/25 06:08 MDM - Abdominal Pain Medical Decision Making Patient presents here with abdominal pain along with vomiting with history of multiple surgeries in the past and small bowel obstructions. Patient CT scan here does show small bowel obstruction she has no signs of bowel ischemia or perforated bowel. I did review her lab work she does have a mildly elevated white count and lactate did give her sepsis bolus blood cultures along with 1 dose antibiotics. Also did place an NG tube for her small bowel obstruction did treat her pain with morphine along with some Ativan. I spoke to hospitalist Dr. arshad along with surgeon Dr. Proctor who is consulted. Dr. wray will be admitting the patient. I did go over all this with patient and family they understand agree to plan Medical Records I reviewed the patient's medical records. Lab Data I reviewed the patient's lab results. 03/06/25 06:01 03/06/25 06:01 Labs/Radiology: Radiology Impressions Abdomen/Pelvis CT 03/06/25 05:47 IMPRESSION: 1. Non rotation with the colon on the left side of the abdomen and the small bowel in the right. 2. Dilated fluid-filled small bowel loops up to 3.3 cm. Decompressed distal small bowel with a transition zone in the rightward abdomen (series 4, image 35). Appearances consistent with small bowel obstruction. 3. Hiatal hernia. 4. Small amount of free fluid. ADDENDUM: 03/06/25 0726 COMMENT: THIS REPORT CONTAINS FINDINGS THAT MAY BE CRITICAL TO PATIENT CARE. The exam findings were verbally communicated by me to HODA LIMON via telephone conference at 07:25 AM CDT on 03/06/2025. The findings were acknowledged and understood. Laboratory Results WBC 14.71 10^3/uL (3.29-11.43) H 03/06/25 06: RBC 5.67 10^6/uL (3.85-5.65) H 03/06/25 06: Hgb 12.30 g/dL (11.27-16.99) 03/06/25 06: Hct 42.0 % (36-47) 03/06/25 06: MCV 74.1 fl (85-98) L 03/06/25 06: MCH 21.7 pg (27-33) L 03/06/25 06: MCHC 29.3 g/dL (30-55) L 03/06/25 06: RDW 16.4 % (12.1-15.1) H 03/06/25 06:01 Plt Count 428 10^3/cmm (157-399) H 03/06/25 06:01 MPV 9.6 fL (7.4-10.4) 03/06/25 06:01 Neut % (Auto) 87.3 % 03/06/25 06:01 Lymph % (Auto) 9.9 % 03/06/25 06:01 [place] % (Auto) 2.2 % 03/06/25 06:01 Eos % (Auto) 0.0 % 03/06/25 06:01 Baso % (Auto) 0.3 % 03/06/25 06:01 Neut # (Auto) 12.83 10^3/uL (1.8-7.7) H 03/06/25 06:01 Lymph # (Auto) 1.5 10^3/uL (0.8-4.8) 03/06/25 06:01 [place] # (Auto) 0.3 10^3/uL (0.2-0.9) 03/06/25 06:01 Eos # (Auto) 0.0 10^3/uL (0.0-0.8) 03/06/25 06:01 Baso # (Auto) 0.0 10^3/uL (0.0-0.1) 03/06/25 06:01 Nucleated RBC % (auto) 0 % 03/06/25 06:01 Nucleated RBCs # 0.0 /100WBC 03/06/25 06:01 Sodium 139 mmol/L (136-145) 03/06/25 06:01 Potassium 4.6 mmol/L (3.5-5.1) 03/06/25 06:01 Chloride 98 mmol/L (98-107) 03/06/25 06:01 Carbon Dioxide 25 mmol/L (22-29) 03/06/25 06:01 Anion Gap 20.6 (5-19) H 03/06/25 06:01 BUN 16 mg/dL (8-23) 03/06/25 06:01 Creatinine 0.7 mg/dL (0.5-0.9) 03/06/25 06:01 GFR Calculation 83.2 mL/min (90-130) L 03/06/25 06:01 Glucose 233 mg/dL (65-115) H 03/06/25 06:01 Calculated Osmolality 297 mOsm/kg (285-295) H 03/06/25 06:01 Lactic Acid 3.0 mmol/L (0.5-2.2) H 03/06/25 06:01 Calcium 11.0 mg/dL (8.5-10.5) H 03/06/25 06:01 Total Bilirubin 0.3 mg/dL (0.15-1.2) 03/06/25 06:01 AST 18 U/L (0-32) 03/06/25 06:01 ALT 17 U/L (0-33) 03/06/25 06:01 Alkaline Phosphatase 90 U/L (35-105) 03/06/25 06:01 Total Protein 8.5 g/dL (6.6-8.7) 03/06/25 06:01 Albumin 5.0 g/dL (3.5-5.2) 03/06/25 06:01 Globulin 3.5 g/dL (1.3-4.6) 03/06/25 06:01 Lipase 18 U/L (13-60) 03/06/25 06:01 All radiology interpretation(s) finalized by discharge Discharge Plan Discharge Patient Disposition: Admitted As Inpatient Clinical Impression: Small bowel obstruction Condition: Stable Coding Level of Care Code ED Wirer Maintenance for Rachana Baird
--- NOTE | 2025-03-06 08:13 | PC.PHAR ---
Pt has several supplements she gets from [employer]. Some are non formulary products but I added them just for the knowledge.
[2025-03-06 09:58] LABS: Lactic Acid level (Lactate) 3.3 mmol/L (0.5-2.2)
[2025-03-06 10:37] LABS: Estmated Average Glucose 134; Hemoglobin A1C 6.3 % (4.0-6.0)
[2025-03-06 10:56] LABS: Procalcitonin 0.14 ng/mL (0-0.5); Thyroid Stimulating Hormone 1.20 uIU/mL (0.27-4.20)
[2025-03-06 11:05] LABS: Vitamin B12 > 2000 pg/mL (232-1245)
[2025-03-06 11:07] LABS: Iron 14 ug/dL (37-145); Total Iron Binding Capacity 385 mcg/dl; Unsaturated Iron Binding 371 ug/dL (112-347)
[2025-03-06] MEDS: morphine 4 mg/mL SDV 1 mL 2 MG IVP ×3 (11:29→22:45)
[2025-03-06] MEDS: pantoprazole 40 mg SDV IVP (11:31)
[2025-03-06] MEDS: meropenem 1,000 mg SDV 1000 MG IVP ×2 (11:35→19:02)
[2025-03-06] MEDS: heparin 5,000 unit/mL INJ 1 mL 5000 UNIT SUBCUT ×2 (11:42→22:45)
--- NOTE | 2025-03-06 12:28 | PM.HP ---
Providers/Chief Complaint Admitting Physician: Socrates Hawkins MD Primary Care Provider: Huy Cobos MD Chief Complaint: intestinal issues malrotation n/v History of Present Illness Christy Jane is a 70 year old female with past medical history of hypertension, malrotation of the bowels, multiple bowel obstructions, requiring multiple abdominal surgeries and partial resection of colon presents to the ER today because of abdominal pain nausea which started yesterday in the afternoon. Patient denies of having any diarrhea. Last bowel movement was yesterday. Review of Systems General: Reports: 10 or more systems reviewed and unremarkable except in HPI and below Const: Denies: fever(s), chills, body aches, change in appetite, change in weight, malaise, night sweats, diaphoresis, change in sleep pattern, daytime sleepiness or snoring Eyes: Denies: change in vision, blurry vision, photophobia, eye discomfort or eye discharge ENMT: Denies: throat pain, enlarged tonsils, hoarseness, mouth pain, oral sores, dry mouth, tinnitus, nasal congestion or post nasal drip Card: Denies: chest pain, palpitations, irregular heart rhythm, edema, swelling of feet/ankles, lightheadedness, syncope, pre-syncope, dyspnea on exertion, orthopnea, leg pain with exertion or acrocyanosis Resp: Denies: dyspnea, productive cough, non-productive cough, wheezing, stridor, pain on inspiration, change in phlegm color, hemoptysis or chest congestion GI: Denies: abdominal pain, nausea, vomiting, hematemesis, coffee ground emesis, dysphagia, heartburn, diarrhea, constipation, bloating, GI cramping, change in bowel habits, pain on defecation, hematochezia or melena : Denies: flank pain, dysuria, urinary frequency, urinary urgency, urinary hesitancy, nocturia or hematuria Musc: Denies: neck pain, back pain, extremity pain, joint pain, joint swelling, joint redness, joint stiffness or limited range of motion Neuro: Denies: headache(s), numbness in extremities, weakness in extremities, sensory changes, lack of coordination, difficulty walking, frequent falls, dizziness, vertigo, confusion, Slurred speech present, difficulty communicating thoughts or seizure-like activity Psych: Denies: anxiety, depression, mood swings, panic attacks, hopelessness or irritability Endo: Denies: polyuria, polydipsia, tired all the time, cold intolerance, excessive sweating, flushing or heat intolerance Carlos/Lymph: Denies: easy bruising or easy bleeding All/Imm: Denies: tongue swelling, facial swelling or acute wheezing Medications/Allergies Home Medications ?Medication ?Instructions ?Recorded ?Confirmed ?Last Taken ?Type ibuprofen 200 mg tablet 600 mg PO Q6H PRN Pain 02/19/20 03/06/25 02/16/21 History sumatriptan succinate 100 mg tablet 100 mg PO PRN 02/19/20 03/06/25 02/18/21 History pantoprazole 40 mg tablet,delayed 40 mg PO DAILY 02/14/21 03/06/25 03/05/25 History release Beef Liver 1 cap PO DAILY 03/06/25 03/06/25 03/05/25 History Megafood Complex C 1 tab PO DAILY 03/06/25 03/06/25 03/05/25 History Quietum Plus 1 cap PO BID 03/06/25 03/06/25 03/05/25 History aspirin 81 mg tablet,delayed 81 mg PO DAILY 03/06/25 03/06/25 03/05/25 History release cyanocobalamin (vitamin B-12) 2,500 mcg sublingual DAILY 03/06/25 03/06/25 03/05/25 History 2,500 mcg sublingual tablet (Vitamin B-12) diphenhydramine 25 2 tab PO BEDTIME PRN Sleep 03/06/25 03/06/25 Unknown History mg-acetaminophen 500 mg tablet (Acetaminophen PM) ergocalciferol (vitamin D2) 10 mcg 10 mcg PO DAILY 03/06/25 03/06/25 03/05/25 History (400 unit) tablet gabapentin 300 mg capsule 300 mg PO TID PRN nerve pain 03/06/25 03/06/25 Unknown History hydrocodone 7.5 mg-acetaminophen 1 tab PO Q6H PRN Pain 03/06/25 03/06/25 Unknown History 325 mg tablet lisinopril 10 1 tab PO DAILY 03/06/25 03/06/25 03/05/25 History mg-hydrochlorothiazide 12.5 mg tablet metoprolol succinate 50 mg 50 mg PO DAILY 03/06/25 03/06/25 03/05/25 History tablet,extended release 24 hr bybvfbst-mzwijwcq-nwm C 250 1 tab PO BID 03/06/25 03/06/25 03/05/25 History mg-herbal no.124 8.875 mg chewable tablet (Airborne Immune Support) pumpkin seed extract-soy germ 300 1 cap PO BID 03/06/25 03/06/25 03/05/25 History mg capsule (Azo Bladder Control) rosuvastatin 40 mg tablet 40 mg PO QPM 03/06/25 03/06/25 03/05/25 History Allergies Allergy/AdvReac Type Severity Reaction Status Date / Time codeine Allergy RASH Verified 09/13/21 15:11 Penicillins Allergy RASH Verified 09/13/21 15:11 PFSH Acute PFSH: Medical History (Updated 03/06/25 @ 12:35 by Socrates Hawkins MD) Hypertension Surgical History H/O laparoscopy S/P laparotomy H/O partial resection of colon H/O: hysterectomy S/P appendectomy S/P cholecystectomy Social History Smoking and tobacco/nicotine status: light tobacco/nicotine user Alcohol intake: never Substance/Drug Use: never Vitals/I&O/Wt Last Vital Signs Temp 97.6 F 03/06/25 12:26 Pulse 69 03/06/25 12:26 Resp 17 03/06/25 12:26 BP 132/85 03/06/25 12:26 Pulse Ox 95 03/06/25 12:26 O2 Del Method Room Air 03/06/25 06:08 03/05/25 03/06/25 03/06/25 22:59 06:59 14:59 Intake Total 2250 / 2250 Balance 2250 / 2250 Weight last 48 hrs Weight 70.307 kg Physical Exam Narrative: General: In distress because of abdominal pain, AO x 3, NG tube in place HEENT: PERRLA, pupils bilaterally equal and reactive Chest: Normal vesicular breath sounds, no added sounds, equal good air entry bilaterally CVS: S1-S2 regular, no murmurs, no tachycardia, no gallops, no rubs Abdomen: Generalized tenderness, mildly distended, bowel sounds sluggish Neuro: No focal deficits, no facial deformity, AO x3, power 5/5 in all limbs Data 03/06/25 06:01 03/06/25 06:01 Micro: Microbiology 03/06/25 07:28 Blood Culture - Preliminary Blood SPECIMEN COLLECTED 03/06/25 07:30 Blood Culture - Preliminary Blood SPECIMEN COLLECTED A&P Assessment and plan 1. Small bowel obstruction: Surgery on board. Plan for conservative treatment. NG tube in place. Keep NPO. Hydration with NS at 75 cc/h. Protonix daily, Zofran as needed NG tube management, bowel regimen as per surgical team. Patient does have mild leukocytosis with elevated lactate. Empirically start on IV Zosyn. Follow-up blood cultures. Out of bed to chair. Monitor electrolytes. 2. H/O partial resection of colon: 3. Hypertension: Plan: Leukocytosis: Follow-up blood culture. Antibiotic as above. Continue to monitor Elevated lactate: Fluid as above. Repeat lactic acid with reflex in 6 hours. Hypertension: Goal blood pressure less than 140/90 mmHg. Monitor blood pressures. For now hold off on home dose of lisinopril, metoprolol. IV metoprolol 2.5 mg every 4 hours as needed for heart rate of more than 110 bpm. Full code N.p.o. Protonix OPD prophylaxis Heparin 5000 every 12 DVT prophylaxis PDMP PDMP Reviewed: Not Reviewed Attestations Medical Necessity Statement*: Admission for more than 2 midnights for management of recurrent small bowel obstruction in a patient with history of multiple abdominal surgeries Diagnoses Small bowel obstruction K56.609 H/O partial resection of colon Z90.49 Hypertension I10
[2025-03-06 16:05] LABS: Lactic Sepsis W/Reflex 1.1 mmol/L (0.5-2.2)
--- NOTE | 2025-03-06 16:38 | XRR_ITS ---
PROCEDURE INFORMATION: Exam: XR Chest Exam date and time: 03/06/2025 4:10 PM Age: 70 years old Clinical indication: Device placement; Ng tube; Prior surgery; Surgery date: 6+ months; Surgery type: Gb, appy, partial colectomy, hyst; Additional info: Ng tube placement TECHNIQUE: Imaging protocol: Radiologic exam of the chest. Views: 1 view. COMPARISON: CR (CHEST, ) 03/06/2025 8:03 AM FINDINGS: Tubes, catheters and devices: NG tube is seen and projects in good position in the left abdomen at the expected level of the mid stomach. This is similar in position to exam same date at 8:00 a.m.. Lungs: No infiltrate/edema or consolidation. Pleural spaces: No pleural effusion or pneumothorax. Heart/Mediastinum: No significant cardiomegaly. Bones/joints: Postsurgical fusion hardware noted visualized mid and lower cervical spine. Visualized osseous structures show no acute abnormality. XR/XR chest 1V portable [id number] IMPRESSION: NG tube projected in good position in the left abdomen at the expected level of the mid stomach, similar in appearance with exam earlier same date.
--- NOTE | 2025-03-06 17:53 | PM.CONSULT ---
Providers/Reason For Consult Consulting Physician/Specialty*: germania obregon MD general surgery Reason for Consult*: sbo recurrent Requesting Physician: MD juan josé hospitalist Attending Physician: Socraets Hawkins MD Primary Care Provider: Huy Cobos MD History of Present Illness History of Present Illness Christy Jane is a 70 year old female who has had multiple abdominal surgeries in past including GB, appendix, hysterectomy. She has had SBO lysis of adhesions and never bowel resection yet. She states she comes in with a lot of pain and N/V and they wait at least 3 days and then she may require surgery. Last one years ago. She was told she has malrotation of the gut. She ate hamburger and then pain occurred suddenly. No F/C/S. Crampy abdominal pain especially over transition point in RLQ. WBC 14. Had a BM yesterday? She is not sure when last flatus was. Normally can go a few days with no BM. Review of Systems Narrative: Constitutional: denies rigors, singnificant weight gain, increased appetite HEENT: denies chronic cough, blurry vision, excessive tearing, eye pain, flashing lights, odynophagia, painful mastication, change in voice, change in taste, chronic sore throat, hypersalivation Heart: denies racing heart, palpitations, othropnea, PND Lungs: denies hemoptysis, pain with deep inspiration, chronic bronchitis GI: denies hematemesis, hematochezia, dysphagia, tenesmus : denies polyuria, hematuria, painful micturation Musculoskeletal: denies hemarthrosis, Muscle wasting, change in amubation Neuro: denies new onset syncope, dysesthesia, dysequilibrium, ptosis eyelid or face SKin: denies new onset hyperalgia, new rash new cyanosis Endocrine: denies new polyuria, polydipsia, polyphagia, heat intolerance, excessive energy Hem/Onc: denies new petechiae, swollen glands, new excessive epstaxis Psych: denies racing thought Medications/Allergies Home Medications ?Medication ?Instructions ?Recorded ?Confirmed ?Last Taken ?Type ibuprofen 200 mg tablet 600 mg PO Q6H PRN Pain 02/19/20 03/06/25 02/16/21 History sumatriptan succinate 100 mg tablet 100 mg PO PRN 02/19/20 03/06/25 02/18/21 History pantoprazole 40 mg tablet,delayed 40 mg PO DAILY 02/14/21 03/06/25 03/05/25 History release Beef Liver 1 cap PO DAILY 03/06/25 03/06/25 03/05/25 History Megafood Complex C 1 tab PO DAILY 03/06/25 03/06/25 03/05/25 History Quietum Plus 1 cap PO BID 03/06/25 03/06/25 03/05/25 History aspirin 81 mg tablet,delayed 81 mg PO DAILY 03/06/25 03/06/25 03/05/25 History release cyanocobalamin (vitamin B-12) 2,500 mcg sublingual DAILY 03/06/25 03/06/25 03/05/25 History 2,500 mcg sublingual tablet (Vitamin B-12) diphenhydramine 25 2 tab PO BEDTIME PRN Sleep 03/06/25 03/06/25 Unknown History mg-acetaminophen 500 mg tablet (Acetaminophen PM) ergocalciferol (vitamin D2) 10 mcg 10 mcg PO DAILY 03/06/25 03/06/25 03/05/25 History (400 unit) tablet gabapentin 300 mg capsule 300 mg PO TID PRN nerve pain 03/06/25 03/06/25 Unknown History hydrocodone 7.5 mg-acetaminophen 1 tab PO Q6H PRN Pain 03/06/25 03/06/25 Unknown History 325 mg tablet lisinopril 10 1 tab PO DAILY 03/06/25 03/06/25 03/05/25 History mg-hydrochlorothiazide 12.5 mg tablet metoprolol succinate 50 mg 50 mg PO DAILY 03/06/25 03/06/25 03/05/25 History tablet,extended release 24 hr yforpfdi-gudvlrcx-gsq C 250 1 tab PO BID 03/06/25 03/06/25 03/05/25 History mg-herbal no.124 8.875 mg chewable tablet (Airborne Immune Support) pumpkin seed extract-soy germ 300 1 cap PO BID 03/06/25 03/06/25 03/05/25 History mg capsule (Azo Bladder Control) rosuvastatin 40 mg tablet 40 mg PO QPM 03/06/25 03/06/25 03/05/25 History Allergies Allergy/AdvReac Type Severity Reaction Status Date / Time codeine Allergy RASH Verified 09/13/21 15:11 Penicillins Allergy RASH Verified 09/13/21 15:11 Current Medications Generic Name Dose Route Start Last Admin Trade Name Freq PRN Reason Stop Dose Admin Acetaminophen 650 mg 03/06/25 10:14 03/06/25 16:31 Acetaminophen 325 Mg Tablet PO 650 mg Q6H PRN Administration Mild/Mod Pain Or Temp >/= 101 Bisacodyl 10 mg 03/06/25 11:45 03/06/25 14:42 Bisacodyl 10 Mg Supp MI 03/09/25 05:01 10 mg DAILY MARY Administration Docusate Sodium 100 mg 03/06/25 17:00 03/06/25 16:30 Docusate Sodium 100 Mg Capsule PO 100 mg BID MARY Administration Glycerin 1 each 03/06/25 11:44 03/06/25 14:42 Glycerin Adult Supp MI 03/09/25 05:01 1 each DAILY MARY Administration Heparin Sodium (Porcine) 5,000 unit 03/06/25 11:30 03/06/25 11:42 Heparin 5,000 Unit/Ml Inj 1 Ml SUBCUT 5,000 unit Q12H MARY Administration Sodium Chloride 1,000 mls @ 75 mls/hr 03/06/25 10:15 03/06/25 11:25 Sodium Chloride 0.9% IV 75 mls/hr .[id number] MARY Administration Meropenem 1,000 mg 03/06/25 11:30 03/06/25 11:35 Meropenem 1,000 Mg Sdv IVP 1,000 mg Q8H MARY Administration Protocol Morphine Sulfate 2 mg 03/06/25 10:14 03/06/25 16:31 Morphine 4 Mg/Ml Sdv 1 Ml IVP 2 mg Q4H PRN Administration SEVERE PAIN Pantoprazole Sodium 40 mg 03/06/25 11:30 03/06/25 11:31 Pantoprazole 40 Mg Sdv IVP 40 mg Q24H MARY Administration Simethicone 80 mg 03/06/25 11:00 03/06/25 16:30 Simethicone 80 Mg Chew PO 80 mg QID MARY Administration PFSH Acute PFSH: Medical History (Updated 03/06/25 @ 12:35 by Socrates Hawkins MD) Hypertension Surgical History H/O laparoscopy S/P laparotomy H/O partial resection of colon H/O: hysterectomy S/P appendectomy S/P cholecystectomy Social History Smoking and tobacco/nicotine status: light tobacco/nicotine user Alcohol intake: never Substance/Drug Use: never Vitals/I&O/Wt Last Vital Signs Temp 98.5 F 03/06/25 16:22 Pulse 105 H 03/06/25 16:22 Resp 18 03/06/25 16:31 BP 126/73 03/06/25 16:22 Pulse Ox 91 03/06/25 16:31 O2 Del Method Room Air 03/06/25 06:08 03/06/25 03/06/25 03/06/25 06:59 14:59 22:59 Intake Total 2250 / 2250 Output Total 300 / 300 Balance 1950 / 1950 Weight last 48 hrs Weight 155 lb Physical Exam Narrative: Patient is a well developed well nourished and in NAD and is afebrile with vitals stable and is answering questions appropriately with a normal affect and is alert and oriented x3 HEENT: normocephalic with normal external ears and nonicteric, oral mucosa moist and dentition normal for age, trachea midline with no large masses visualized Heart: RRR, no gallops murmurs or rubs, normal PMI with no thrills Lungs: normal excursions, no loud audible wheezing, no subcutaneous emphysema Abdomen: nondistended, no gross hepatosplenomegaly, no masses, no rigidity or rebound,slightly tender RLQ, no loud borborygmi Neuro: nonfocal, MATHIS, grossly normal sensation Musculoskeletal: good muscle tone, no fasciculations, normal gait Skin: pink warm and dry with no rashes or ecchymosis Vascular: good radial pulses, no ulceration, less than 2 second capillary refill in hand : deferred Data 03/06/25 06:01 03/06/25 06:01 Micro: Microbiology 03/06/25 07:28 Blood Culture - Preliminary Blood SPECIMEN COLLECTED 03/06/25 07:30 Blood Culture - Preliminary Blood SPECIMEN COLLECTED A&P Assessment and plan 1. Small bowel obstruction: Plan: Plan on conservative treatment for now with bowel rest and will clean out from below. She states pain the N/V is about what she expected from previous episodes and stays a few days in hospital. She did not eat roughage and high fiber recently that could trigger obstruction. PDMP PDMP Reviewed: Not Reviewed Coding Level of Care Code 62868 Diagnoses Small bowel obstruction K56.609
[2025-03-07] VITALS (7 sets, daily range): BP systolic 130–181; BP diastolic 77–83; PULSE 85–94; RESP 16–18; TEMP 36.2–36.8; O2SAT 94–97
[2025-03-07] MEDS: morphine 4 mg/mL SDV 1 mL 2 MG IVP ×2 (02:37→07:22)
[2025-03-07 03:30] LABS: Hematocrit 31.0 % (36-47); Hemoglobin 9.10 g/dL (11.27-16.99); Mean Corpuscular HGB Conc 29.4 g/dL (30-55); Mean Corpuscular Hemoglobin 22.0 pg (27-33); Mean Corpuscular Volume 75.1 fl (85-98); Nucleated Red Blood Cells % 0 %; Platelet Count 312 10^3/cmm (157-399); Red Blood Count 4.13 10^6/uL (3.85-5.65); White Blood Count 8.61 10^3/uL (3.29-11.43)
[2025-03-07 03:58] LABS: Alanine Aminotransferase 10 U/L (0-33); Albumin Level 3.8 g/dL (3.5-5.2); Alkaline Phosphatase 58 U/L (35-105); Anion Gap 12.6 (5-19); Aspartate Amino Transferase 13 U/L (0-32); Blood Urea Nitrogen 17 mg/dL (8-23); Calcium 8.8 mg/dL (8.5-10.5); Carbon Dioxide 26 mmol/L (22-29); Chloride 109 mmol/L (98-107); Creatinine Clr Calc Pharmacy 63.2855; Globulin 2.2 g/dL (1.3-4.6); Glucose 109 mg/dL (65-115); Magnesium 2.3 mg/dL (1.7-2.3); Osmolality Calculated 300 mOsm/kg (285-295); Potassium 3.6 mmol/L (3.5-5.1); Sodium 144 mmol/L (136-145); Total Protein 6.0 g/dL (6.6-8.7)
[2025-03-07 04:00] LABS: Cholesterol 139 mg/dL (0-200); HDL Cholesterol 43 mg/dL (60-100); Triglycerides 149 mg/dL (0-150)
[2025-03-07 04:01] LABS: Procalcitonin 0.14 ng/mL (0-0.5)
[2025-03-07] MEDS: meropenem 1,000 mg SDV 1000 MG IVP ×3 (04:42→22:04)
--- NOTE | 2025-03-07 06:00 | XR_ITS ---
WS: [id number] KUB,, AP view, 03/07/2025 Clinical Data: SBO with transition in RLQ Comparison: None. Findings: No abnormal intraabdominal masses or calcifications are seen. There is no dilatated small bowel or evidence of obstruction. There is scattered air in the small bowel and colon. There is a enteric tube ending in the stomach. There are cholecystectomy clips in the right upper quadrant. There are monitor leads on the upper abdomen. There is a right hip arthroplasty. XR/XR abdomen 1V* [id number] Impression: Negative KUB.
--- NOTE | 2025-03-07 06:25 | PC.NURSE ---
Patient was taken to have gastric emptying study done this morning. Once down in nuc med patient started vomiting. Patient was brought back up to medical floor. 0500 medications were not administered due to patients nausea and vomiting.
--- NOTE | 2025-03-07 06:39 | P.PN_ITS ---
Subjective 2 Subjective: Patient feels better with less pain Vitals/I&O/Wt Last Vital Signs Temp 97.1 F L 03/07/25 04:00 Pulse 85 03/07/25 04:00 Resp 16 03/07/25 04:00 BP 130/81 03/07/25 04:00 Pulse Ox 95 03/07/25 04:00 O2 Del Method Room Air 03/07/25 04:00 03/06/25 03/06/25 03/07/25 14:59 22:59 06:59 Intake Total 2250 / 2250 853.75 / 3103.75 Output Total 300 / 300 800 / 1100 Balance 1950 / 1950 53.75 / 2003.75 Weight last 48 hrs Weight 176 lb 2.389 oz Weight 155 lb Physical Exam 2 Narrative: Patient is a well developed well nourished and in NAD and is afebrile with vitals stable and is answering questions appropriately with a normal affect and is alert and oriented x3 HEENT: normocephalic with normal external ears and nonicteric, oral mucosa moist and dentition normal for age, trachea midline with no large masses visualized Heart: RRR, no gallops murmurs or rubs, normal PMI with no thrills Lungs: normal excursions, no loud audible wheezing, no subcutaneous emphysema Abdomen: nondistended, no gross hepatosplenomegaly, no masses, no rigidity or rebound, no loud borborygmi Neuro: nonfocal, MATHIS, grossly normal sensation Musculoskeletal: good muscle tone, no fasciculations, normal gait Skin: pink warm and dry with no rashes or ecchymosis Vascular: good radial pulses, no ulceration, less than 2 second capillary refill in hand : deferred Data 03/07/25 02:29 03/07/25 02:29 Micro: Microbiology 03/06/25 07:28 Blood Culture - Preliminary Blood SPECIMEN COLLECTED 03/06/25 07:30 Blood Culture - Preliminary Blood SPECIMEN COLLECTED A&P Assessment and plan 1. Small bowel obstruction: Patient clinically better. AXR is pending. Continue NG tube and clean out from above and below. PDMP PDMP Reviewed: Not Reviewed Attestations 2 Medical Necessity Statement*: Patient with NG tube in place for SBO and not on diet yet Coding Level of Care Code 57203 Diagnoses Small bowel obstruction K56.609
[2025-03-07] MEDS: ondansetron 2 mg/ML SDV 2 mL 4 MG IVP ×2 (07:27→19:34)
[2025-03-07] MEDS: polyethylene glycol 3350 Pkt 17 gm NG-TUBE (09:39)
[2025-03-07] MEDS: HYDROmorphone 0.5 MG/0.5 ML INJ 0.2 MG IVP ×3 (11:41→23:22)
--- NOTE | 2025-03-07 13:07 | P.PN_ITS ---
Subjective 2 Subjective: No acute events overnight. Less NG tube output. States feeling slightly better. Still not passing flatus. Complaining of headache. States she has history of migraine. Vitals/I&O/Wt Last Vital Signs Temp 97.9 F 03/07/25 12:00 Pulse 92 03/07/25 12:00 Resp 17 03/07/25 12:00 BP 146/83 03/07/25 12:00 Pulse Ox 97 03/07/25 12:00 O2 Del Method Room Air 03/07/25 12:00 03/06/25 03/07/25 03/07/25 22:59 06:59 14:59 Intake Total 853.75 / 3103.75 Output Total 800 / 1100 2150 / 2150 Balance 53.75 / 2003.75 -215 / -0 Weight last 48 hrs Weight 79.9 kg Weight 70.307 kg Physical Exam 2 Narrative: General: In distress because of abdominal pain, AO x 3, NG tube in place HEENT: PERRLA, pupils bilaterally equal and reactive Chest: Normal vesicular breath sounds, no added sounds, equal good air entry bilaterally CVS: S1-S2 regular, no murmurs, no tachycardia, no gallops, no rubs Abdomen: Generalized tenderness, mildly distended, bowel sounds sluggish Neuro: No focal deficits, no facial deformity, AO x3, power 5/5 in all limbs Data 03/07/25 02:29 03/07/25 02:29 Micro: Microbiology 03/06/25 07:28 Blood Culture - Preliminary Blood NEGATIVE TO DATE 03/06/25 07:30 Blood Culture - Preliminary Blood NEGATIVE TO DATE A&P Assessment and plan 1. Small bowel obstruction: Surgery on board. Plan for conservative treatment. NG tube in place. Keep NPO. Hydration with NS at 75 cc/h. Protonix daily, Zofran as needed NG tube management, bowel regimen as per surgical team. Patient does have mild leukocytosis with elevated lactate. Empirically start on IV Zosyn. Follow-up blood cultures. Out of bed to chair. Monitor electrolytes. 2. H/O partial resection of colon: 3. Hypertension: Plan: Leukocytosis: Follow-up blood culture. Antibiotic as above. Continue to monitor Elevated lactate: Fluid as above. Repeat lactic acid with reflex in 6 hours. Hypertension: Goal blood pressure less than 140/90 mmHg. Monitor blood pressures. For now hold off on home dose of lisinopril, metoprolol. IV metoprolol 2.5 mg every 4 hours as needed for heart rate of more than 110 bpm. Full code N.p.o. Protonix OPD prophylaxis Heparin 5000 every 12 DVT prophylaxis Plan for the day: NG tube management as per surgical team. Continue with IV fluids. Monitor electrolytes. States she usually has migraine being on morphine. Will change to Dilaudid 0.2 every 6 hours as needed. 30 mg IM Toradol one-time for headache. Out of bed to chair. Leukocytosis resolved. Continue IV antibiotics for now. Hemoglobin down to 9.1 today. Most likely dilutional as all 3 lines have trended down as compared to yesterday. Continue to monitor. No concern for bleeding for now. Blood pressure is at goal. PDMP PDMP Reviewed: Not Reviewed Attestations 2 Medical Necessity Statement*: Requires further hospitalization for management of small bowel obstruction Diagnoses Small bowel obstruction K56.609 H/O partial resection of colon Z90.49 Hypertension I10
[2025-03-07] MEDS: pantoprazole 40 mg SDV IVP (13:52)
[2025-03-07 16:15] LABS: Bacillus cereus group Not Detected (NOT DETECT); Bacillus subtillis group Not Detected (NOT DETECT); Corynebacterium Not Detected (NOT DETECT); Cutibacterium acnes (P.acnes) Not Detected (NOT DETECT); Enterococcus faecalis Not Detected (NOT DETECT); Enterococcus faecium Not Detected (NOT DETECT); Listeria Not Detected (NOT DETECT); Micrococcus Detected (NOT DETECT); Pan Candida Not Detected (NOT DETECT); Pan Gram-Negative Not Detected (NOT DETECT); Staphylococcus epidermidis Not Detected (NOT DETECT); Staphylococcus lugdunensis Not Detected (NOT DETECT); Staphylococcus species Not Detected (NOT DETECT); Streptococcus anginosus group Not Detected (NOT DETECT); Streptococcus pyogenes Not Detected (NOT DETECT); Streptococcus species Not Detected (NOT DETECT)
--- NOTE | 2025-03-07 20:44 | PC.NURSE ---
pt hooked back up to LIS
[2025-03-07] MEDS: diphenhydrAMINE 50 mg/mL SDV 1mL IVP (22:04)
[2025-03-07] MEDS: heparin 5,000 unit/mL INJ 1 mL 5000 UNIT SUBCUT (22:05)
[2025-03-08] VITALS: BP 154/77; PULSE 83; RESP 16; TEMP 36.4; O2SAT 95
[2025-03-08 05:18] LABS: Hematocrit 33.2 % (36-47); Hemoglobin 9.80 g/dL (11.27-16.99); Mean Corpuscular HGB Conc 29.5 g/dL (30-55); Mean Corpuscular Hemoglobin 22.2 pg (27-33); Mean Corpuscular Volume 75.1 fl (85-98); Nucleated Red Blood Cells % 0 %; Platelet Count 285 10^3/cmm (157-399); Red Blood Count 4.42 10^6/uL (3.85-5.65); White Blood Count 6.50 10^3/uL (3.29-11.43)
[2025-03-08] MEDS: HYDROmorphone 0.5 MG/0.5 ML INJ 0.2 MG IVP ×2 (05:24→11:47)
[2025-03-08] MEDS: meropenem 1,000 mg SDV 1000 MG IVP (05:27)
[2025-03-08 05:51] LABS: Alanine Aminotransferase 11 U/L (0-33); Albumin Level 4.0 g/dL (3.5-5.2); Alkaline Phosphatase 59 U/L (35-105); Anion Gap 17.4 (5-19); Aspartate Amino Transferase 15 U/L (0-32); Blood Urea Nitrogen 13 mg/dL (8-23); Calcium 9.0 mg/dL (8.5-10.5); Carbon Dioxide 22 mmol/L (22-29); Chloride 106 mmol/L (98-107); Creatinine Clr Calc Pharmacy 67.3625; Globulin 2.5 g/dL (1.3-4.6); Glucose 95 mg/dL (65-115); Magnesium 2.3 mg/dL (1.7-2.3); Osmolality Calculated 294 mOsm/kg (285-295); Potassium 3.4 mmol/L (3.5-5.1); Sodium 142 mmol/L (136-145); Total Protein 6.5 g/dL (6.6-8.7)
[2025-03-08 06:00] VITALS: PULSE 64; BMI 31.1
--- NOTE | 2025-03-08 06:00 | XR_ITS ---
WS: [id number] KUB, AP portable supine, 03/08/2025 Clinical Data: SBO with transition in RLQ Comparison: KUB, 03/07/2025 Findings: No abnormal intraabdominal masses or calcifications are seen. There is no dilatated small bowel or evidence of obstruction. The small bowel loops appear to be normal and are located on the right side of the abdomen. The colon is on the left. The nasogastric tube ends in the stomach. There are monitor leads on the abdominal wall. There is a right hip arthroplasty. There are cholecystectomy clips in the right upper quadrant. XR/XR abdomen 1V* [id number] Impression: Negative KUB.
[2025-03-08 07:50] VITALS: BP 158/89; PULSE 78; RESP 15; TEMP 36.4; O2SAT 96
--- NOTE | 2025-03-08 09:59 | PC.CHAP ---
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 visit [] Patient/Family/Request visit [] Outpatient visit [] Follow-up visit [] Physician referral [] Code/Alert [x] Routine visit [] Staff referral [] Actively dying [] Patient sleeping [x] Family support [] [] Out of room [] Palliative care [] [] Receiving care in room [] Pre-surgical visit [] Trauma [] Long length of stay [] ICU visit [] Other: Relational/Emotional Strength [x] Patient feels connected with others/family/visitors/staff [] Distress [] Loneliness/isolation [] Abandonment Spirituality of Patient [x] Person of Christine [] Attends Synagogue of their Christine [x] Believes in Prayer [] Reads Bible or Protestant materials [] There are Spiritual issues to be addressed Advanced Practice Rn Interventions [x] Prayer [x] Active listening [x] Non-anxious presence [x] Spiritual/emotional support [] Crisis/trauma care [] Spiritual counseling [] Bereavement support [] Provided bereavement packet [] Provided Bible/devotional materials [] Provided toy/stuffed animal, coloring book to patient or family member [] Provided Communion [] Anointing/[place] [] Salvation [x] Completed spiritual assessment [] Other: Impact on Illness or Injury [] Angry [] Fearful [] Anxious [] Often cries [] Exhaustion [] Unable to work [] Unable to attend baptist [] Unable to walk/stand [] Unable to read [] Unable to drive [] Unable to eat/drink [] Unable to sleep [] Unable to be with family [] Patient intubated [] Other: Summary Time spent with patient 5 min
[2025-03-08 11:11] VITALS: BP 140/75; PULSE 86; RESP 15; TEMP 36.4; O2SAT 94
[2025-03-08] MEDS: pantoprazole 40 mg SDV IVP (11:36)
[2025-03-08] MEDS: heparin 5,000 unit/mL INJ 1 mL 5000 UNIT SUBCUT ×2 (11:37→23:00)
--- NOTE | 2025-03-08 11:41 | P.PN_ITS ---
Subjective 2 Subjective: No acute events. Continues to improve. Has had 2-3 bowel movements overnight. States abdomen is feeling better. Vitals/I&O/Wt Last Vital Signs Temp 97.6 F 03/08/25 11:11 Pulse 86 03/08/25 11:11 Resp 15 03/08/25 11:11 BP 140/75 03/08/25 11:11 Pulse Ox 94 03/08/25 11:11 O2 Del Method Room Air 03/08/25 11:11 03/07/25 03/08/25 03/08/25 22:59 06:59 14:59 Intake Total 415 / 1415 20 / 1435 972.5 / 972.5 Balance 415 / -735 20 / -715 972.5 / 972.5 Weight last 48 hrs Weight 79.9 kg Weight 79.9 kg Physical Exam 2 Narrative: General: In distress because of abdominal pain, AO x 3, NG tube in place HEENT: PERRLA, pupils bilaterally equal and reactive Chest: Normal vesicular breath sounds, no added sounds, equal good air entry bilaterally CVS: S1-S2 regular, no murmurs, no tachycardia, no gallops, no rubs Abdomen: Generalized tenderness, mildly distended, bowel sounds sluggish Neuro: No focal deficits, no facial deformity, AO x3, power 5/5 in all limbs Data 03/08/25 05:06 03/08/25 05:06 Micro: Microbiology 03/06/25 07:30 Blood Culture - Preliminary Blood NEGATIVE TO DATE 03/06/25 07:28 Blood Culture - Preliminary Blood NEGATIVE TO DATE A&P Assessment and plan 1. Small bowel obstruction: Surgery on board. Plan for conservative treatment. NG tube in place. Keep NPO. Hydration with NS at 75 cc/h. Protonix daily, Zofran as needed NG tube management, bowel regimen as per surgical team. Patient does have mild leukocytosis with elevated lactate. Empirically start on IV Zosyn. Follow-up blood cultures. Out of bed to chair. Monitor electrolytes. 2. H/O partial resection of colon: 3. Hypertension: Plan: Leukocytosis: Follow-up blood culture. Antibiotic as above. Continue to monitor Elevated lactate: Fluid as above. Repeat lactic acid with reflex in 6 hours. Hypertension: Goal blood pressure less than 140/90 mmHg. Monitor blood pressures. For now hold off on home dose of lisinopril, metoprolol. IV metoprolol 2.5 mg every 4 hours as needed for heart rate of more than 110 bpm. Full code N.p.o. Protonix OPD prophylaxis Heparin 5000 every 12 DVT prophylaxis Plan for the day: Surgery on board. Most likely will discontinue NG tube today and start on clear liquid diet. Awaiting recommendations. Monitor electrolytes. Discontinue antibiotics. No leukocytosis. Leukocytosis on admission most likely reactionary. Goal blood pressure less than 140/90 mmHg. Continue with home dose of lisinopril. Discontinue hydrochlorothiazide for now. Can restart once SBO is resolved completely. Decrease IV fluid to 50 cc/h. PDMP PDMP Reviewed: Not Reviewed Attestations 2 Medical Necessity Statement*: Requires further hospitalization for management of small bowel obstruction Diagnoses Small bowel obstruction K56.609 H/O partial resection of colon Z90.49 Hypertension I10
[2025-03-08] MEDS: phenol oral Spray 177 mL 3 SPRAY MUCOUS MEM (14:03)
[2025-03-08 15:21] VITALS: BP 164/83; PULSE 75; RESP 16; TEMP 36.8; O2SAT 96
[2025-03-08 20:00] VITALS: BP 162/74; PULSE 76; RESP 17; TEMP 36.8; O2SAT 97
[2025-03-09] VITALS: BP 145/75; PULSE 74; RESP 16; TEMP 36.5; O2SAT 92
[2025-03-09 04:00] VITALS: BP 132/67; PULSE 72; RESP 16; TEMP 36.7; O2SAT 92
[2025-03-09 04:43] LABS: Hematocrit 31.4 % (36-47); Hemoglobin 9.40 g/dL (11.27-16.99); Mean Corpuscular HGB Conc 29.9 g/dL (30-55); Mean Corpuscular Hemoglobin 21.8 pg (27-33); Mean Corpuscular Volume 72.9 fl (85-98); Nucleated Red Blood Cells % 0 %; Platelet Count 320 10^3/cmm (157-399); Red Blood Count 4.31 10^6/uL (3.85-5.65); White Blood Count 6.42 10^3/uL (3.29-11.43)
[2025-03-09 05:07] LABS: Alanine Aminotransferase 12 U/L (0-33); Albumin Level 4.0 g/dL (3.5-5.2); Alkaline Phosphatase 56 U/L (35-105); Anion Gap 15.3 (5-19); Aspartate Amino Transferase 19 U/L (0-32); Blood Urea Nitrogen 8 mg/dL (8-23); Calcium 9.2 mg/dL (8.5-10.5); Carbon Dioxide 25 mmol/L (22-29); Chloride 106 mmol/L (98-107); Creatinine Clr Calc Pharmacy 67.3625; Globulin 2.7 g/dL (1.3-4.6); Glucose 92 mg/dL (65-115); Magnesium 2.3 mg/dL (1.7-2.3); Osmolality Calculated 294 mOsm/kg (285-295); Potassium 3.3 mmol/L (3.5-5.1); Sodium 143 mmol/L (136-145); Total Protein 6.7 g/dL (6.6-8.7)
--- NOTE | 2025-03-09 06:00 | XRR_ITS ---
PROCEDURE INFORMATION: Exam: XR Abdomen Exam date and time: 03/09/2025 6:21 AM Age: 70 years old Clinical indication: Other: Sbo; Prior surgery; Surgery date: 6+ months; Surgery type: Gb partial colon resection appy hyst; Additional info: Sbo with transition in rlq TECHNIQUE: Imaging protocol: Radiologic exam of the abdomen. Views: Frontal supine view of the abdomen. 1 View. COMPARISON: CR XR abdomen 1V* [id number] 03/08/2025 6:41 AM FINDINGS: Gastrointestinal tract: Nonspecific bowel gas pattern. No dilated bowel. Organs: Cholecystectomy. Bones/joints: Right hip replacement. XR/XR abdomen 1V* [id number] IMPRESSION: No acute findings.
[2025-03-09 07:23] VITALS: BP 159/79; PULSE 84; RESP 16; TEMP 36.7; O2SAT 94
[2025-03-09 08:00] VITALS: BP 159/79; PULSE 84; RESP 16; TEMP 36.7
--- NOTE | 2025-03-09 11:10 | PM.DDS ---
Discharge Providers DDS Date of Admission: 03/06/25 07:28 Date Summary Completed: 03/09/25 Attending Provider at Admission: Socrates Hawkins MD Attending Provider at Discharge: Lali Judd MD Primary Care Provider: Huy Cobos MD DS Diagnoses Hospital Diagnoses 1. Small bowel obstruction: 2. H/O partial resection of colon: 3. Hypertension: Reason for Visit Reason for Visit intestinal issues malrotation n/v Summary Additional Data Advance directives?: No Discharge Plan Discharge Patient Disposition: Home Condition: Stable Prescriptions: New docusate sodium 100 mg Capsule 100 mg PO BID 30 Days Qty: 60 0RF ferrous sulfate 325 mg (65 mg iron) tablet,delayed release (DR/EC) 325 mg PO DAILY Qty: 30 0RF Continued pantoprazole 40 mg tablet,delayed release (DR/EC) 40 mg PO DAILY sumatriptan succinate 100 mg tablet 100 mg PO PRN ibuprofen 200 mg Tablet 600 mg PO Q6H PRN (Reason: Pain) cyanocobalamin (vitamin B-12) [Vitamin B-12] 2,500 mcg Tablet, Sublingual 2,500 mcg SUBLINGUAL DAILY metoprolol succinate 50 mg tablet extended release 24 hr 50 mg PO DAILY ergocalciferol (vitamin D2) 10 mcg (400 unit) Tablet 10 mcg PO DAILY aspirin 81 mg tablet,delayed release (DR/EC) 81 mg PO DAILY hydrocodone-acetaminophen 7.5-325 mg tablet 1 tab PO Q6H PRN (Reason: Pain) gabapentin 300 mg capsule 300 mg PO TID PRN (Reason: nerve pain) lisinopril-hydrochlorothiazide 10-12.5 mg tablet 1 tab PO DAILY diphenhydramine-acetaminophen [Acetaminophen PM] 25-500 mg Tablet 2 tab PO BEDTIME PRN (Reason: Sleep) Rx Instructions: administer while awake rosuvastatin 40 mg tablet 40 mg PO QPM Azo Bladder Control 300 mg Capsule 1 cap PO BID Airborne Immune Support 250-8.875 mg Tablet,Chewable 1 tab PO BID Beef Liver 1 cap PO DAILY Megafood Complex C 1 tab PO DAILY Quietum Plus 1 cap PO BID Discharge Order = DC NOW: Discharge Order (Routine); Ordered 03/09/25 Ordered By: Lali Judd Referrals: Huy Cobos MD [Primary Care Provider, [facility]] - 03/16/25 10:15 am Discharge Diet: Advance as tolerated and Clear Liquid Discharge Activity: Resume usual activity Patient Instructions: Opioid Safety, Patient Portal & Goran Instructions Coding Level of Care Code Acute Code for Chg Fwd Diagnoses Small bowel obstruction K56.609 H/O partial resection of colon Z90.49 Hypertension I10
[2025-03-09 11:12] VITALS: BP 152/83; PULSE 83; RESP 15; TEMP 36.7; O2SAT 95
[2025-03-09 12:48] VITALS: BP 152/83; PULSE 83; RESP 15; TEMP 36.7; O2SAT 95
--- NOTE | 2025-03-09 12:49 | P.PN_ITS ---
Subjective 2 Subjective: Tolerating regular diet Having bowel function Vitals/I&O/Wt Last Vital Signs Temp 98.1 F 03/09/25 11:12 Pulse 83 03/09/25 11:12 Resp 15 03/09/25 11:12 BP 152/83 03/09/25 11:12 Pulse Ox 95 03/09/25 11:12 O2 Del Method Room Air 03/09/25 11:12 03/08/25 03/09/25 03/09/25 22:59 06:59 14:59 Intake Total 100 / 1186.25 757.5 / 1943.75 100 / 100 Balance 100 / 1186.25 757.5 / 1943.75 100 / 100 Weight last 48 hrs Weight 185 lb Weight 176 lb 2.389 oz Physical Exam 2 Narrative: Chest: Unlabored breathing room air. No lymphadenopathy. Heart: Regular rate and rhythm. Abdomen: Soft, nontender, nondistended. No masses or lymphadenopathy. Data 03/09/25 04:15 03/09/25 04:15 A&P Assessment and plan 1. Small bowel obstruction: Plan: 70-year-old female admitted with SBO. Now resolved. Tolerating diet and no pain. Having bowel function. Cleared for discharge. PDMP PDMP Reviewed: Not Reviewed Attestations 2 Medical Necessity Statement*: N/A Coding Level of Care Code 31979 Diagnoses Small bowel obstruction K56.609
--- NOTE | 2025-03-09 13:29 | PM.DCS ---
Discharge Providers Date of Admission: 03/06/25 07:28 Date of Discharge: March 09, 2025 Attending Provider at Admission: Socrates Hawkins MD Attending Provider at Discharge: Lali Judd MD Consults: General surgery Primary Care Provider: Huy Cobos MD Diagnoses at Discharge Discharge Diagnosis 1. Small bowel obstruction: 2. Hypertension: Reason for Visit Reason for Visit: intestinal issues malrotation n/v Brief History: This is a 70-year-old female with hypertension, history of small bowel obstruction requiring multiple abdominal surgeries, status post partial resection of colon who presented with abdominal pain and nausea. Her last bowel movement was a day prior to admission. Imaging showed small bowel obstruction. Hospital Course Hospital Course An NG tube was placed and she was started on IV fluids. She is now tolerating clear liquid diet. She is passing flatus and has had a bowel movement. General surgery was okay with discharge today. She also had leukocytosis with elevated lactic acid. There was no evidence of acute infection. Her procalcitonin is normal. Physical Exam Narrative: GEN: Const: COMMON NORMALS: no acute distress, patient oriented x3 and alert HENMT: COMMON NORMALS: normocephalic and atraumatic HEAD & SCALP: normocephalic and atraumatic Eye: COMMON NORMALS: Equal, round and reactive pupils present PUPIL: Yes Equal, round and reactive pupils present Neck/C-Spine: COMMON NORMALS: supple and no JVD Resp: COMMON NORMALS: normal respiratory effort and clear to auscultation bilaterally AUSCULTATION: clear to auscultation bilaterally Cardio: COMMON NORMALS: no JVD, regular rate, regular rhythm, S1 normal heart sound present, S2 normal heart sound present and No murmurs present (Cardio) RATE: regular rate RHYTHM: regular rhythm HEART SOUNDS: S1 normal heart sound present and S2 normal heart sound present GI: COMMON NORMALS: Normal to inspection, nondistended, normoactive bowel sounds present : COMMON NORMALS: Yes no CVA tenderness BLADDER/KIDNEY EXAM: Yes no CVA tenderness Back/Pelvis: COMMON NORMALS: no CVA tenderness Extremity: COMMON NORMALS: normal to inspection, full ROM and no pedal edema Neuro: COMMON NORMALS: patient oriented x3 and no focal motor deficits SENSORIUM/ORIENTATION: Yes alert Psych: COMMON NORMALS: cooperative Discharge Data Studies Completed and Pending Completed Studies During Hospitalization Category Date Time Status CT abdomen pelvis w con* [id number] Stat Cat Scan 03/06/25 05:47 Completed XR abdomen 1V* [id number] QAM Exams 03/07/25 06:00 Completed XR abdomen 1V* [id number] QAM Exams 03/08/25 06:00 Completed XR abdomen 1V* [id number] QAM Exams 03/09/25 06:00 Completed XR chest 1V portable [id number] Routine Exams 03/06/25 16:38 Completed XR chest 1V portable [id number] Stat Exams 03/06/25 07:11 Completed Pending at discharge Category Date Time Status Blood Culture Stat Lab 03/06/25 07:28 Results Urinalysis Stat Lab 03/06/25 07:22 Ordered Radiology Impressions Abdomen/Pelvis CT 03/06/25 05:47 IMPRESSION: 1. Non rotation with the colon on the left side of the abdomen and the small bowel in the right. 2. Dilated fluid-filled small bowel loops up to 3.3 cm. Decompressed distal small bowel with a transition zone in the rightward abdomen (series 4, image 35). Appearances consistent with small bowel obstruction. 3. Hiatal hernia. 4. Small amount of free fluid. ADDENDUM: 03/06/25 0726 COMMENT: THIS REPORT CONTAINS FINDINGS THAT MAY BE CRITICAL TO PATIENT CARE. The exam findings were verbally communicated by me to HODA LIMON via telephone conference at 07:25 AM CDT on 03/06/2025. The findings were acknowledged and understood. Chest X-Ray 03/06/25 16:38 IMPRESSION: NG tube projected in good position in the left abdomen at the expected level of the mid stomach, similar in appearance with exam earlier same date. Abdomen X-Ray 03/09/25 06:00 IMPRESSION: No acute findings. Laboratory Results WBC 6.42 10^3/uL (3.29-11.43) 03/09/25 04:15 RBC 4.31 10^6/uL (3.85-5.65) 03/09/25 04:15 Hgb 9.40 g/dL (11.27-16.99) L 03/09/25 04:15 Hct 31.4 % (36-47) L 03/09/25 04:15 MCV 72.9 fl (85-98) L 03/09/25 04:15 MCH 21.8 pg (27-33) L 03/09/25 04:15 MCHC 29.9 g/dL (30-55) L 03/09/25 04:15 RDW 15.7 % (12.1-15.1) H 03/09/25 04:15 Plt Count 320 10^3/cmm (157-399) 03/09/25 04:15 MPV 9.0 fL (7.4-10.4) 03/09/25 04:15 Neut % (Auto) 50.8 % 03/09/25 04:15 Lymph % (Auto) 34.0 % 03/09/25 04:15 Gibson % (Auto) 8.4 % 03/09/25 04:15 Eos % (Auto) 5.5 % 03/09/25 04:15 Baso % (Auto) 0.8 % 03/09/25 04:15 Neut # (Auto) 3.27 10^3/uL (1.8-7.7) 03/09/25 04:15 Lymph # (Auto) 2.2 10^3/uL (0.8-4.8) 03/09/25 04:15 Gibson # (Auto) 0.5 10^3/uL (0.2-0.9) 03/09/25 04:15 Eos # (Auto) 0.4 10^3/uL (0.0-0.8) 03/09/25 04:15 Baso # (Auto) 0.1 10^3/uL (0.0-0.1) 03/09/25 04:15 Nucleated RBC % (auto) 0 % 03/09/25 04:15 Nucleated RBCs # 0.0 /100WBC 03/09/25 04:15 Sodium 143 mmol/L (136-145) 03/09/25 04:15 Potassium 3.3 mmol/L (3.5-5.1) L 03/09/25 04:15 Chloride 106 mmol/L (98-107) 03/09/25 04:15 Carbon Dioxide 25 mmol/L (22-29) 03/09/25 04:15 Anion Gap 15.3 (5-19) 03/09/25 04:15 BUN 8 mg/dL (8-23) 03/09/25 04:15 Creatinine 0.6 mg/dL (0.5-0.9) 03/09/25 04:15 GFR Calculation 99.4 mL/min (90-130) 03/09/25 04:15 Glucose 92 mg/dL (65-115) 03/09/25 04:15 Estimat Average Glucose 134 03/06/25 06:01 Hemoglobin A1c 6.3 % (4.0-6.0) H 03/06/25 06:01 Calculated Osmolality 294 mOsm/kg (285-295) 03/09/25 04:15 Lactic Acid 1.1 mmol/L (0.5-2.2) 03/06/25 15:44 Lactic Acid (Sepsis) 3.3 mmol/L (0.5-2.2) H 03/06/25 09:34 Calcium 9.2 mg/dL (8.5-10.5) 03/09/25 04:15 Phosphorus 2.5 mg/dL (2.5-4.5) 03/09/25 04:15 Magnesium 2.3 mg/dL (1.7-2.3) 03/09/25 04:15 Iron 14 ug/dL (37-145) L 03/06/25 06:01 TIBC 385 mcg/dl 03/06/25 06:01 % Saturation 3.6 % (20-50) L 03/06/25 06:01 Unsat Iron Binding 371 ug/dL (112-347) H 03/06/25 06:01 Total Bilirubin 0.3 mg/dL (0.15-1.2) 03/09/25 04:15 AST 19 U/L (0-32) 03/09/25 04:15 ALT 12 U/L (0-33) 03/09/25 04:15 Alkaline Phosphatase 56 U/L (35-105) 03/09/25 04:15 Total Protein 6.7 g/dL (6.6-8.7) 03/09/25 04:15 Albumin 4.0 g/dL (3.5-5.2) 03/09/25 04:15 Globulin 2.7 g/dL (1.3-4.6) 03/09/25 04:15 Triglycerides 149 mg/dL (0-150) 03/07/25 02:29 Cholesterol 139 mg/dL (0-200) 03/07/25 02:29 LDL Cholesterol, Calc 66 mg/dL (50-129) 03/07/25 02:29 HDL Cholesterol 43 mg/dL (60-100) L 03/07/25 02:29 LDL/HDL Ratio 1.53 RATIO (0.00-3.22) 03/07/25 02:29 Cholesterol/HDL Ratio 3.23 mg/dL (0.0-4.40) 03/07/25 02:29 Lipase 18 U/L (13-60) 03/06/25 06:01 Vitamin B12 > 2000 pg/mL (232-1245) H 03/06/25 06:01 Folate 12.0 ng/mL (4.8-37.3) 03/07/25 02:29 Procalcitonin 0.14 ng/mL (0-0.5) 03/07/25 02:29 TSH 1.20 uIU/mL (0.27-4.20) 03/06/25 06:01 Vitals Last Vital Signs Temp 98.1 F 03/09/25 12:48 Pulse 83 03/09/25 12:48 Resp 15 03/09/25 12:48 BP 152/83 03/09/25 12:48 Pulse Ox 95 03/09/25 12:48 O2 Del Method Room Air 03/09/25 11:12 Discharge Plan Discharge Patient Disposition: Home Condition: Stable Prescriptions: New docusate sodium 100 mg Capsule 100 mg PO BID 30 Days Qty: 60 0RF ferrous sulfate 325 mg (65 mg iron) tablet,delayed release (DR/EC) 325 mg PO DAILY Qty: 30 0RF Continued pantoprazole 40 mg tablet,delayed release (DR/EC) 40 mg PO DAILY sumatriptan succinate 100 mg tablet 100 mg PO PRN ibuprofen 200 mg Tablet 600 mg PO Q6H PRN (Reason: Pain) cyanocobalamin (vitamin B-12) [Vitamin B-12] 2,500 mcg Tablet, Sublingual 2,500 mcg SUBLINGUAL DAILY metoprolol succinate 50 mg tablet extended release 24 hr 50 mg PO DAILY ergocalciferol (vitamin D2) 10 mcg (400 unit) Tablet 10 mcg PO DAILY aspirin 81 mg tablet,delayed release (DR/EC) 81 mg PO DAILY hydrocodone-acetaminophen 7.5-325 mg tablet 1 tab PO Q6H PRN (Reason: Pain) gabapentin 300 mg capsule 300 mg PO TID PRN (Reason: nerve pain) lisinopril-hydrochlorothiazide 10-12.5 mg tablet 1 tab PO DAILY diphenhydramine-acetaminophen [Acetaminophen PM] 25-500 mg Tablet 2 tab PO BEDTIME PRN (Reason: Sleep) Rx Instructions: administer while awake rosuvastatin 40 mg tablet 40 mg PO QPM Azo Bladder Control 300 mg Capsule 1 cap PO BID Airborne Immune Support 250-8.875 mg Tablet,Chewable 1 tab PO BID Beef Liver 1 cap PO DAILY Megafood Complex C 1 tab PO DAILY Quietum Plus 1 cap PO BID Discharge Order = DC NOW: Discharge Order (Routine); Ordered 03/09/25 Ordered By: Lali Judd Referrals: Huy Cobos MD [Primary Care Provider, [facility]] - 03/16/25 10:15 am Discharge Diet: Advance as tolerated and Clear Liquid Discharge Activity: Resume usual activity Patient Instructions: Iron Supplements (By mouth), Laxative, Stool Softeners (By mouth), Bowel Obstruction (GEN), Opioid Safety, Patient Portal & Goran Instructions Discharge Attestations Time Spent in Discharge Care*: greater than 30 min Quality Metrics Clinical Quality Measures [ No reported AMI, CVA or VTE this stay] Coding Level of Care Code 29960 Diagnoses Small bowel obstruction K56.609 Hypertension I10
== END 2025-03-09 12:05 | disposition home or self-care (01) | DRG 390 ==
LOC: ER 07:37 → MEDSURG 08:10
PROVIDERS: Admitting Provider Student in an Organized Health Care Education/Training Program; Emergency Provider Emergency Medicine; PCP Family Medicine; Visit Provider Student in an Organized Health Care Education/Training Program
DX: K56.609 Unspecified intestinal obstruction, unspecified as to partial versus complete obstruction (principal); I10 Essential (primary) hypertension; Z90.49 Acquired absence of other specified parts of digestive tract; Z90.710 Acquired absence of both cervix and uterus; Z88.1 Allergy status to other antibiotic agents; Z88.0 Allergy status to penicillin; Z72.0 Tobacco use; R51.9 Headache, unspecified; E61.1 Iron deficiency
CPT/HCPCS: 36415; 71045; 74018; 74177; 80053; 80061; 82607; 82746; 83036; 83540; 83550; 83605; 83690; 83735; 84100; 84145; 84443; 85025; 87040; 87150; 87205; 94664; 96372; 96374; 96375; 99285; J0692; J1171; J1200; J1644; J1885; J2060; J2185; J2270; J2405; J2470; J7030; J7050; J9999

== ENCOUNTER 2025-04-22 12:43 | Outpatient (CLI) | payer BC, MEDICARE, SELFPAY ==
--- NOTE | 2025-04-22 12:47 | MM_ITS ---
WS: [id number] BILATERAL 3D TOMOSYNTHESIS DIGITAL SCREENING MAMMOGRAPHY WITH CAD CLINICAL INFORMATION: ANNUAL SCREENING HISTORY: Screening mammogram. No current complaints. COMPARISON: 2022 TECHNIQUE: Bilateral CC and MLO views. FINDINGS: The breasts are composed of heterogeneous fibroglandular density tissue, which can limit the detection of small underlying mass lesions. No suspicious mass, asymmetry, calcifications, or architectural distortion. No evidence of malignancy. Incidental punctate calcifications. MM/MM scr tomosynthesis [id number] IMPRESSION: DENSITY: The breasts are heterogeneously dense, which may obscure small masses. BI-RADS: 2 - Benign FOLLOW UP: 1 Year Follow-up Recommend return to annual screening mammography.
== END 2025-04-22 12:44 | disposition home or self-care (01) ==
LOC: RAD 12:43
PROVIDERS: PCP Family Medicine; Visit Provider Family Medicine
DX: Z12.31 Encounter for screening mammogram for malignant neoplasm of breast (principal); R92.333 Mammographic heterogeneous density, bilateral breasts; R92.323 Mammographic fibroglandular density, bilateral breasts; R92.1 Mammographic calcification found on diagnostic imaging of breast
CPT/HCPCS: 77063; 77067